=== PATIENT | male | born 1955 | race Two or more races ===

== ENCOUNTER 2020-03-13 12:16 | Inpatient (IN) | payer OTHER ==
[~2020-03-13] VITALS: Ht 170.2 cm; Wt 63.7 kg
[2020-03-13] MEDS: BUDESONIDE (INHALATION) 180 MCG IH IN SCH (08:00)
[2020-03-13 16:35] LABS: Basophils # (auto) 0 10 ^3/uL (0-0.2); Basophils % (auto) 0.1 % (0.0-2.0); Eosinophils # (auto) 0 10 ^3/uL (0-0.8); Hematocrit 52.8 % (41.0-53.0); Hemoglobin 18.2 g/dL (13.5-17.5); Lymphocytes # (auto) 0.2 10 ^3/uL (0.4-5.4); Lymphocytes % (auto) 1.7 % (10.0-50.0); Mean Corpuscular Hemoglobin 31.3 pg (28.0-32.0); Mean Corpuscular Hgb Conc. 34.4 g/dL (32.0-36.0); Monocytes # (auto) 0.5 10 ^3/uL (0-1.3); Monocytes % (auto) 3.9 % (0.0-12.0); Neutrophils # (auto) 11.1 10 ^3/uL (1.6-8.6); Neutrophils % (auto) 94.3 % (37.0-80.0); Nucleated Red Blood Cells % 0.1 %; Platelet Count (auto) 250 10^3/uL (140-450); Red Cell Distribution Width 13.2 % (11.8-14.3); White Blood Cell 11.7 10^3/uL (4.4-10.8)
[2020-03-13 16:52] LABS: Albumin 3.2 g/dL (3.4-5.0); Anion Gap 2 (5-15); Blood Urea Nitrogen 19 mg/dL (7-18); Calcium 8.9 mg/dL (8.5-10.1); Carbon Dioxide 31 mmol/L (21-32); Chloride 103 mmol/L (98-107); Glucose 138 mg/dL (74-106); Potassium 5.1 mmol/L (3.5-5.1); Sodium 136 mmol/L (136-145)
[2020-03-13 17:02] LABS: Alanine Aminotransferase 48 U/L (16-61); Alkaline Phosphatase 88 U/L (45-117); Aspartate Aminotransferase 42 U/L (15-37); BUN/Creatinine Ratio 20.4; Bilirubin, Total 0.9 mg/dL (0.2-1.0); GFR African American 105 mL/min; GFR Non-African American 87 mL/min; Lactate Dehydrogenase 446 U/L (87-241); Total Protein 7.9 g/dL (6.4-8.2)
[2020-03-13] MEDS ORDERED: REMDESIVIR PER PHARMACY 0 ML IV SCH (17:15)
[2020-03-13] MEDS ORDERED: ACETAMINOPHEN 500 MG TAB PO PRN (17:15)
[2020-03-13] MEDS ORDERED: MORPHINE SULF INJ 2 MG/ML SYRINGE 1ML IV PRN (17:30)
[2020-03-13] MEDS ORDERED: diphenhdrAMINE HCL 50 MG/1 ML VL IV PRN (17:30)
[2020-03-13] MEDS ORDERED: NITROGLYCERIN 0.4 MG SL TAB SL PRN (17:30)
[2020-03-13] MEDS ORDERED: LACTULOSE 20Gm/30ML SOLN PO PRN (17:30)
[2020-03-13] MEDS ORDERED: PROMETHAZINE HCL 25 MG/ML 1ML IV PRN (17:30)
[2020-03-13] MEDS ORDERED: traMADol HCL 50 MG TAB PO PRN (17:30)
[2020-03-14 06:26] LABS: Basophils # (auto) 0 10 ^3/uL (0-0.2); Basophils % (auto) 0.1 % (0.0-2.0); Eosinophils # (auto) 0 10 ^3/uL (0-0.8); Hemoglobin 16.4 g/dL (13.5-17.5); Lymphocytes # (auto) 0.4 10 ^3/uL (0.4-5.4); Lymphocytes % (auto) 2.6 % (10.0-50.0); Mean Corpuscular Hemoglobin 31.2 pg (28.0-32.0); Mean Corpuscular Hgb Conc. 34.8 g/dL (32.0-36.0); Mean Corpuscular Volume 89.7 fL (80.0-100.0); Monocytes % (auto) 7.7 % (0.0-12.0); Neutrophils # (auto) 11.9 10 ^3/uL (1.6-8.6); Neutrophils % (auto) 89.6 % (37.0-80.0); Nucleated Red Blood Cells % 0.3 %; Platelet Count (auto) 241 10^3/uL (140-450); Red Blood Cells 5.24 10^6/uL (4.5-5.90); Red Cell Distribution Width 13.2 % (11.8-14.3); White Blood Cell 13.3 10^3/uL (4.4-10.8)
[2020-03-14 06:58] LABS: Albumin 2.8 g/dL (3.4-5.0); Potassium 4.1 mmol/L (3.5-5.1)
[2020-03-14 07:02] LABS: Bilirubin, Total 0.9 mg/dL (0.2-1.0); Total Protein 7.1 g/dL (6.4-8.2)
[2020-03-14] MEDS: FAMOTIDINE (10MG/ML) 2ML VL IV SCH ×3 (08:10→22:44)
[2020-03-14] MEDS: ENOXAPARIN SOD 40 MG/0.4 ML SYRINGE SC SCH ×3 (08:11→22:44)
[2020-03-14] MEDS: DexAMETHasone SOD PHOS 10MG/1ML VIAL INJ IV SCH (10:00)
[2020-03-14] MEDS: BUDESONIDE (INHALATION) 180 MCG IH IN SCH ×2 (10:00→22:00)
[2020-03-14] MEDS ORDERED: levoFLOXacin 500MG 100 ML IV SCH (10:00)
[2020-03-14] MEDS ORDERED: cefTRIAXone 1GM/50ML D5W 50 ML IV SCH (10:24)
[2020-03-14] MEDS ORDERED: FUROSEMIDE 20 MG/2 ML VIAL IV ONE (10:30)
[2020-03-14] MEDS ORDERED: CEFTRIAXONE SODIUM 2 GM in D5W 5% 50 ML IV ONE (10:30)
[2020-03-14] MEDS ORDERED: REMDESIVIR PER PHARMACY 0 ML IV SCH (10:30)
[2020-03-14] MEDS ORDERED: diphenhdrAMINE HCL 50 MG/1 ML VL IV PRN (10:30)
[2020-03-14 11:10] VITALS: BP 136/96
[2020-03-14] MEDS: ASCORBIC ACID 1,000 MG TAB PO SCH (13:45)
[2020-03-14] MEDS: ZINC SULFATE 220mg CAP or TAB PO SCH (13:45)
[2020-03-14] MEDS: CHOLECALCIFEROL (VITD3) 2,000 UNIT CAP/TAB PO SCH (13:45)
[2020-03-14] MEDS ORDERED: REMDESIVIR 200 MG in NS 210ml LOADING DOSE ADULT IV ONE (15:00)
[2020-03-14] MEDS ORDERED: ALPRAZolam 0.5 MG TAB PO PRN (19:45)
[2020-03-14 21:10] VITALS: BP 144/73
[2020-03-14 22:10] VITALS: BP 144/73
[2020-03-14] MEDS: ALBUTEROL SULF HFA 90MCG INH 200DOSE IN PRN (22:36)
[2020-03-14 23:31] LABS: Urine Bacteria NONE SEEN /hpf (None Seen); Urine Blood Negative /uL (Negative); Urine Hyaline Cast FEW /lpf (0 - 2); Urine Mucus FEW (None Seen); Urine Specific Gravity 1.036 (1.001-1.035); Urine WBC 1 /hpf (0 - 3)
[2020-03-15] VITALS (8 sets, daily range): BP systolic 108–132; BP diastolic 56–81
[2020-03-15] MEDS: BUDESONIDE (INHALATION) 180 MCG IH IN SCH ×2 (07:21→21:25)
[2020-03-15] MEDS: ALBUTEROL SULF HFA 90MCG INH 200DOSE IN PRN ×2 (07:21→23:11)
[2020-03-15] MEDS: cefTRIAXone 1GM/50ML D5W 50 ML IV SCH (10:26)
[2020-03-15] MEDS: DexAMETHasone SOD PHOS 10MG/1ML VIAL INJ IV SCH (10:26)
[2020-03-15] MEDS: FUROSEMIDE 20 MG/2 ML VIAL IV SCH (10:27)
[2020-03-15] MEDS: FAMOTIDINE (10MG/ML) 2ML VL IV SCH ×2 (10:28→21:37)
[2020-03-15] MEDS: CHOLECALCIFEROL (VITD3) 2,000 UNIT CAP/TAB PO SCH (10:28)
[2020-03-15] MEDS: ASCORBIC ACID 1,000 MG TAB PO SCH (10:28)
[2020-03-15] MEDS: AZITHROMYCIN 500MG/ 250ML 250 ML IV SCH (10:28)
[2020-03-15] MEDS: ZINC SULFATE 220mg CAP or TAB PO SCH (10:28)
[2020-03-15] MEDS: ENOXAPARIN SOD 40 MG/0.4 ML SYRINGE SC SCH ×2 (10:29→21:37)
[2020-03-15] MEDS: REMDESIVIR 100 MG in SODIUM CHL 0.9% 250 ML IV SCH (15:00)
[2020-03-16 05:00] VITALS: BP 114/77
[2020-03-16 05:27] LABS: Basophils # (auto) 0 10 ^3/uL (0-0.2); Basophils % (auto) 0.1 % (0.0-2.0); Eosinophils # (auto) 0 10 ^3/uL (0-0.8); Hematocrit 46.8 % (41.0-53.0); Hemoglobin 16.3 g/dL (13.5-17.5); Lymphocytes # (auto) 0.4 10 ^3/uL (0.4-5.4); Lymphocytes % (auto) 3.6 % (10.0-50.0); Mean Corpuscular Hemoglobin 31.3 pg (28.0-32.0); Mean Corpuscular Hgb Conc. 34.9 g/dL (32.0-36.0); Mean Corpuscular Volume 89.6 fL (80.0-100.0); Monocytes # (auto) 0.8 10 ^3/uL (0-1.3); Monocytes % (auto) 6.7 % (0.0-12.0); Neutrophils # (auto) 10.1 10 ^3/uL (1.6-8.6); Neutrophils % (auto) 89.6 % (37.0-80.0); Nucleated Red Blood Cells % 0.2 %; Platelet Count (auto) 259 10^3/uL (140-450); Red Blood Cells 5.22 10^6/uL (4.5-5.90); Red Cell Distribution Width 13.2 % (11.8-14.3); White Blood Cell 11.2 10^3/uL (4.4-10.8)
[2020-03-16 05:43] LABS: Calcium 8.7 mg/dL (8.5-10.1)
[2020-03-16 05:52] LABS: BUN/Creatinine Ratio 31.3; CRP High Sensitivity 14.9 mg/dL (< 0.3)
[2020-03-16] MEDS: ALBUTEROL SULF HFA 90MCG INH 200DOSE IN PRN ×2 (06:07→19:10)
[2020-03-16] MEDS: BUDESONIDE (INHALATION) 180 MCG IH IN SCH ×2 (06:07→21:41)
[2020-03-16 08:00] VITALS: BP 107/74
[2020-03-16] MEDS: ENOXAPARIN SOD 40 MG/0.4 ML SYRINGE SC SCH ×2 (08:48→21:07)
[2020-03-16] MEDS: CHOLECALCIFEROL (VITD3) 2,000 UNIT CAP/TAB PO SCH (08:49)
[2020-03-16] MEDS: FUROSEMIDE 20 MG/2 ML VIAL IV SCH ×3 (08:49→10:00)
[2020-03-16] MEDS: DexAMETHasone SOD PHOS 10MG/1ML VIAL INJ IV SCH (08:49)
[2020-03-16] MEDS: ASCORBIC ACID 1,000 MG TAB PO SCH (08:50)
[2020-03-16] MEDS: ZINC SULFATE 220mg CAP or TAB PO SCH (08:50)
[2020-03-16] MEDS: FAMOTIDINE (10MG/ML) 2ML VL IV SCH ×2 (08:50→21:07)
[2020-03-16] MEDS: cefTRIAXone 1GM/50ML D5W 50 ML IV SCH (08:51)
[2020-03-16] MEDS: AZITHROMYCIN 500MG/ 250ML 250 ML IV SCH (08:51)
[2020-03-16 09:00] VITALS: BP 107/74
[2020-03-16 13:00] VITALS: BP 117/71
[2020-03-16] MEDS: LORazepam 2MG/ML-1ML VIAL IV PRN ×2 (14:45→21:20)
[2020-03-16] MEDS: REMDESIVIR 100 MG in SODIUM CHL 0.9% 250 ML IV SCH (15:00)
[2020-03-16 17:00] VITALS: BP 119/85
[2020-03-16 22:00] VITALS: BP 124/88
[2020-03-17 05:00] VITALS: BP 117/78
[2020-03-17] MEDS: BUDESONIDE (INHALATION) 180 MCG IH IN SCH ×2 (06:55→19:53)
[2020-03-17] MEDS: ALBUTEROL SULF HFA 90MCG INH 200DOSE IN PRN ×2 (06:55→19:53)
[2020-03-17] MEDS: cefTRIAXone 1GM/50ML D5W 50 ML IV SCH (08:56)
[2020-03-17] MEDS: ASCORBIC ACID 1,000 MG TAB PO SCH (08:57)
[2020-03-17] MEDS: FAMOTIDINE (10MG/ML) 2ML VL IV SCH ×2 (08:59→21:36)
[2020-03-17] MEDS: FUROSEMIDE 20 MG/2 ML VIAL IV SCH (08:59)
[2020-03-17 09:00] VITALS: BP 119/81
[2020-03-17] MEDS: ENOXAPARIN SOD 40 MG/0.4 ML SYRINGE SC SCH ×2 (09:00→21:36)
[2020-03-17] MEDS: CHOLECALCIFEROL (VITD3) 2,000 UNIT CAP/TAB PO SCH (09:10)
[2020-03-17] MEDS: DexAMETHasone SOD PHOS 10MG/1ML VIAL INJ IV SCH (09:10)
[2020-03-17] MEDS: ZINC SULFATE 220mg CAP or TAB PO SCH (09:10)
[2020-03-17] MEDS: AZITHROMYCIN 500MG/ 250ML 250 ML IV SCH (11:00)
[2020-03-17 13:00] VITALS: BP 111/65
[2020-03-17 17:00] VITALS: BP 117/78
[2020-03-17] MEDS: REMDESIVIR 100 MG in SODIUM CHL 0.9% 250 ML IV SCH (18:00)
[2020-03-17 21:00] VITALS: BP 133/82
[2020-03-18 05:04] VITALS: BP 100/66
[2020-03-18] MEDS: BUDESONIDE (INHALATION) 180 MCG IH IN SCH ×2 (06:47→20:55)
[2020-03-18] MEDS: ALBUTEROL SULF HFA 90MCG INH 200DOSE IN PRN ×2 (06:47→20:55)
[2020-03-18 08:00] VITALS: BP 111/70
[2020-03-18 09:00] VITALS: BP 111/70
[2020-03-18] MEDS: DexAMETHasone SOD PHOS 10MG/1ML VIAL INJ IV SCH (12:39)
[2020-03-18] MEDS: cefTRIAXone 1GM/50ML D5W 50 ML IV SCH (12:39)
[2020-03-18] MEDS: FUROSEMIDE 20 MG/2 ML VIAL IV SCH (12:39)
[2020-03-18] MEDS: FAMOTIDINE (10MG/ML) 2ML VL IV SCH ×2 (12:39→21:44)
[2020-03-18] MEDS: AZITHROMYCIN 500MG/ 250ML 250 ML IV SCH (12:39)
[2020-03-18] MEDS: ZINC SULFATE 220mg CAP or TAB PO SCH (12:39)
[2020-03-18] MEDS: CHOLECALCIFEROL (VITD3) 2,000 UNIT CAP/TAB PO SCH (12:40)
[2020-03-18] MEDS: ASCORBIC ACID 1,000 MG TAB PO SCH (12:40)
[2020-03-18] MEDS: ENOXAPARIN SOD 40 MG/0.4 ML SYRINGE SC SCH ×2 (12:40→21:44)
[2020-03-18 13:00] VITALS: BP 118/76
[2020-03-18] MEDS: REMDESIVIR 100 MG in SODIUM CHL 0.9% 250 ML IV SCH (15:43)
[2020-03-18] MEDS: LORazepam 2MG/ML-1ML VIAL IV PRN (21:45)
[2020-03-18 22:00] VITALS: BP 116/73
[2020-03-19] MEDS: LORazepam 2MG/ML-1ML VIAL IV PRN (02:37)
[2020-03-19 05:00] VITALS: BP 123/74
[2020-03-19 08:00] VITALS: BP 109/78
[2020-03-19 08:26] VITALS: BP 109/78
[2020-03-19] MEDS: ALBUTEROL SULF HFA 90MCG INH 200DOSE IN PRN (08:57)
[2020-03-19] MEDS: BUDESONIDE (INHALATION) 180 MCG IH IN SCH (08:57)
[2020-03-19] MEDS: ASCORBIC ACID 1,000 MG TAB PO SCH (10:00)
[2020-03-19] MEDS: CHOLECALCIFEROL (VITD3) 2,000 UNIT CAP/TAB PO SCH (10:00)
[2020-03-19] MEDS: ZINC SULFATE 220mg CAP or TAB PO SCH (10:00)
[2020-03-19] MEDS: FAMOTIDINE (10MG/ML) 2ML VL IV SCH ×2 (10:33→21:30)
[2020-03-19] MEDS: DexAMETHasone SOD PHOS 10MG/1ML VIAL INJ IV SCH (10:33)
[2020-03-19] MEDS: FUROSEMIDE 20 MG/2 ML VIAL IV SCH (10:33)
[2020-03-19] MEDS: cefTRIAXone 1GM/50ML D5W 50 ML IV SCH (10:33)
[2020-03-19] MEDS: ENOXAPARIN SOD 40 MG/0.4 ML SYRINGE SC SCH ×2 (10:34→21:30)
[2020-03-19] MEDS: AZITHROMYCIN 500MG/ 250ML 250 ML IV SCH (10:34)
[2020-03-19 12:30] VITALS: BP 105/78
[2020-03-19 17:00] VITALS: BP 104/77
[2020-03-19 22:00] VITALS: BP 112/80
[2020-03-20] MEDS: ALBUTEROL SULF HFA 90MCG INH 200DOSE IN PRN ×3 (00:21→19:38)
[2020-03-20] MEDS: BUDESONIDE (INHALATION) 180 MCG IH IN SCH ×3 (00:21→19:38)
[2020-03-20 04:48] VITALS: BP 115/66
[2020-03-20 09:00] VITALS: BP 119/82
[2020-03-20] MEDS: cefTRIAXone 1GM/50ML D5W 50 ML IV SCH (10:32)
[2020-03-20] MEDS: DexAMETHasone SOD PHOS 10MG/1ML VIAL INJ IV SCH (10:33)
[2020-03-20] MEDS: FUROSEMIDE 20 MG/2 ML VIAL IV SCH (10:33)
[2020-03-20] MEDS: AZITHROMYCIN 500MG/ 250ML 250 ML IV SCH (10:33)
[2020-03-20] MEDS: FAMOTIDINE (10MG/ML) 2ML VL IV SCH ×2 (10:33→21:26)
[2020-03-20] MEDS: ZINC SULFATE 220mg CAP or TAB PO SCH (10:33)
[2020-03-20] MEDS: ENOXAPARIN SOD 40 MG/0.4 ML SYRINGE SC SCH ×2 (10:34→21:26)
[2020-03-20] MEDS: CHOLECALCIFEROL (VITD3) 2,000 UNIT CAP/TAB PO SCH (10:34)
[2020-03-20] MEDS: ASCORBIC ACID 1,000 MG TAB PO SCH (10:34)
[2020-03-20 11:21] LABS: Basophils # (auto) 0.1 10 ^3/uL (0-0.2); Basophils % (auto) 0.4 % (0.0-2.0); Eosinophils # (auto) 0 10 ^3/uL (0-0.8); Eosinophils % (auto) 0.1 % (0.0-7.0); Hematocrit 50.9 % (41.0-53.0); Hemoglobin 17.4 g/dL (13.5-17.5); Lymphocytes # (auto) 0.3 10 ^3/uL (0.4-5.4); Lymphocytes % (auto) 1.9 % (10.0-50.0); Mean Corpuscular Hemoglobin 30.7 pg (28.0-32.0); Mean Corpuscular Hgb Conc. 34.2 g/dL (32.0-36.0); Mean Corpuscular Volume 89.8 fL (80.0-100.0); Monocytes # (auto) 0.6 10 ^3/uL (0-1.3); Monocytes % (auto) 4.2 % (0.0-12.0); Neutrophils # (auto) 13.8 10 ^3/uL (1.6-8.6); Neutrophils % (auto) 93.4 % (37.0-80.0); Nucleated Red Blood Cells % 0.2 %; Platelet Count (auto) 357 10^3/uL (140-450); Red Blood Cells 5.67 10^6/uL (4.5-5.90); White Blood Cell 14.8 10^3/uL (4.4-10.8)
[2020-03-20 13:00] VITALS: BP 110/77
[2020-03-20 13:00] LABS: Albumin 2.3 g/dL (3.4-5.0); Calcium 8.4 mg/dL (8.5-10.1); Potassium 4.1 mmol/L (3.5-5.1)
[2020-03-20 13:04] LABS: BUN/Creatinine Ratio 30.6; Bilirubin, Total 0.6 mg/dL (0.2-1.0)
[2020-03-20 17:00] VITALS: BP 101/74
[2020-03-20] MEDS: LORazepam 2MG/ML-1ML VIAL IV PRN (17:17)
[2020-03-21 05:00] VITALS: BP 129/79
[2020-03-21] MEDS: BUDESONIDE (INHALATION) 180 MCG IH IN SCH ×2 (06:54→20:06)
[2020-03-21 09:00] VITALS: BP 120/78
[2020-03-21] MEDS: FAMOTIDINE (10MG/ML) 2ML VL IV SCH ×2 (09:01→21:21)
[2020-03-21] MEDS: FUROSEMIDE 20 MG/2 ML VIAL IV SCH (09:02)
[2020-03-21] MEDS: ZINC SULFATE 220mg CAP or TAB PO SCH (09:02)
[2020-03-21] MEDS: DexAMETHasone SOD PHOS 10MG/1ML VIAL INJ IV SCH (09:02)
[2020-03-21] MEDS: ASCORBIC ACID 1,000 MG TAB PO SCH (09:03)
[2020-03-21] MEDS: ENOXAPARIN SOD 40 MG/0.4 ML SYRINGE SC SCH ×2 (09:03→21:21)
[2020-03-21] MEDS: cefTRIAXone 1GM/50ML D5W 50 ML IV SCH (09:04)
[2020-03-21] MEDS: CHOLECALCIFEROL (VITD3) 2,000 UNIT CAP/TAB PO SCH (09:04)
[2020-03-21] MEDS: AZITHROMYCIN 500MG/ 250ML 250 ML IV SCH (10:52)
[2020-03-21 13:00] VITALS: BP 108/84
[2020-03-21 17:00] VITALS: BP 113/76
[2020-03-21 20:00] VITALS: BP 101/76
[2020-03-21] MEDS: ALBUTEROL SULF HFA 90MCG INH 200DOSE IN PRN (20:08)
[2020-03-21 21:24] VITALS: BP 101/76
[2020-03-22] VITALS (7 sets, daily range): BP systolic 105–115; BP diastolic 71–83
[2020-03-22] MEDS: BUDESONIDE (INHALATION) 180 MCG IH IN SCH (10:00)
[2020-03-22] MEDS: ASCORBIC ACID 1,000 MG TAB PO SCH (10:00)
[2020-03-22] MEDS: CHOLECALCIFEROL (VITD3) 2,000 UNIT CAP/TAB PO SCH (10:00)
[2020-03-22] MEDS: ZINC SULFATE 220mg CAP or TAB PO SCH (10:00)
[2020-03-22] MEDS: DexAMETHasone SOD PHOS 10MG/1ML VIAL INJ IV SCH (10:52)
[2020-03-22] MEDS: FAMOTIDINE (10MG/ML) 2ML VL IV SCH ×2 (10:52→21:26)
[2020-03-22] MEDS: AZITHROMYCIN 500MG/ 250ML 250 ML IV SCH (10:52)
[2020-03-22] MEDS: cefTRIAXone 1GM/50ML D5W 50 ML IV SCH (10:52)
[2020-03-22] MEDS: FUROSEMIDE 20 MG/2 ML VIAL IV SCH (10:52)
[2020-03-22] MEDS: ENOXAPARIN SOD 40 MG/0.4 ML SYRINGE SC SCH ×2 (10:55→21:26)
[2020-03-22] MEDS ORDERED: FUROSEMIDE 20 MG/2 ML VIAL IV ONE (12:15)
[2020-03-22] MEDS: LORazepam 2MG/ML-1ML VIAL IV PRN (12:18)
[2020-03-22] MEDS: ALBUTEROL SULF HFA 90MCG INH 200DOSE IN PRN (16:22)
[2020-03-22] MEDS: TEMAZEPAM 15 MG CAP PO PRN (21:59)
[2020-03-23 05:51] VITALS: BP 104/61
[2020-03-23] MEDS: BUDESONIDE (INHALATION) 180 MCG IH IN SCH ×2 (06:26→10:00)
[2020-03-23] MEDS: ALBUTEROL SULF HFA 90MCG INH 200DOSE IN PRN ×2 (06:26→20:08)
[2020-03-23 08:35] VITALS: BP 101/78
[2020-03-23] MEDS: BUDESONIDE (INHALATION) 0.5 MG/2 ML NEB NEB SCH ×3 (09:54→22:00)
[2020-03-23] MEDS: ASCORBIC ACID 1,000 MG TAB PO SCH (10:00)
[2020-03-23] MEDS: ZINC SULFATE 220mg CAP or TAB PO SCH (10:00)
[2020-03-23] MEDS: CHOLECALCIFEROL (VITD3) 2,000 UNIT CAP/TAB PO SCH (10:00)
[2020-03-23] MEDS: cefTRIAXone 1GM/50ML D5W 50 ML IV SCH (10:16)
[2020-03-23] MEDS: DexAMETHasone SOD PHOS 10MG/1ML VIAL INJ IV SCH (10:17)
[2020-03-23] MEDS: FAMOTIDINE (10MG/ML) 2ML VL IV SCH ×2 (10:17→21:50)
[2020-03-23] MEDS: AZITHROMYCIN 500MG/ 250ML 250 ML IV SCH (10:17)
[2020-03-23] MEDS: FUROSEMIDE 20 MG/2 ML VIAL IV SCH (10:17)
[2020-03-23] MEDS: ENOXAPARIN SOD 40 MG/0.4 ML SYRINGE SC SCH ×2 (10:18→21:51)
[2020-03-23 12:41] VITALS: BP 105/72
[2020-03-23 14:34] LABS: Basophils # (auto) 0 10 ^3/uL (0-0.2); Eosinophils # (auto) 0 10 ^3/uL (0-0.8); Lymphocytes # (auto) 0.3 10 ^3/uL (0.4-5.4); Neutrophils % (auto) 95.9 % (37.0-80.0)
[2020-03-23 14:35] LABS: Eosinophils % (auto) 0.1 % (0.0-7.0); Hematocrit 51.4 % (41.0-53.0); Lymphocytes % (auto) 1.8 % (10.0-50.0); Mean Corpuscular Hemoglobin 31.2 pg (28.0-32.0); Mean Corpuscular Hgb Conc. 35.1 g/dL (32.0-36.0); Mean Corpuscular Volume 89.1 fL (80.0-100.0); Monocytes # (auto) 0.4 10 ^3/uL (0-1.3); Monocytes % (auto) 2.2 % (0.0-12.0); Neutrophils # (auto) 16.1 10 ^3/uL (1.6-8.6); Nucleated Red Blood Cells % 0.8 %; Platelet Count (auto) 343 10^3/uL (140-450); Red Blood Cells 5.77 10^6/uL (4.5-5.90); Red Cell Distribution Width 12.7 % (11.8-14.3); White Blood Cell 16.8 10^3/uL (4.4-10.8)
[2020-03-23 14:55] LABS: Alanine Aminotransferase 111 U/L (16-61); Albumin 2.3 g/dL (3.4-5.0); Anion Gap 5 (5-15); Aspartate Aminotransferase 74 U/L (15-37); BUN/Creatinine Ratio 30.4; Blood Urea Nitrogen 28 mg/dL (7-18); Calcium 8.6 mg/dL (8.5-10.1); Carbon Dioxide 33 mmol/L (21-32); Chloride 96 mmol/L (98-107); GFR African American 107 mL/min; GFR Non-African American 88 mL/min; Glucose 124 mg/dL (74-106); Potassium 4.3 mmol/L (3.5-5.1); Sodium 134 mmol/L (136-145)
[2020-03-23 14:58] LABS: Alkaline Phosphatase 111 U/L (45-117); Bilirubin, Total 0.6 mg/dL (0.2-1.0); Total Protein 7.2 g/dL (6.4-8.2)
[2020-03-23 16:54] VITALS: BP 115/85
[2020-03-23] MEDS: LORazepam 2MG/ML-1ML VIAL IV PRN (21:51)
[2020-03-23 22:00] VITALS: BP 112/71
[2020-03-24] MEDS: LORazepam 2MG/ML-1ML VIAL IV PRN (01:45)
[2020-03-24 05:00] VITALS: BP 112/75
[2020-03-24] MEDS: FAMOTIDINE (10MG/ML) 2ML VL IV SCH ×2 (09:16→21:38)
[2020-03-24] MEDS: DexAMETHasone SOD PHOS 10MG/1ML VIAL INJ IV SCH (09:16)
[2020-03-24] MEDS: cefTRIAXone 1GM/50ML D5W 50 ML IV SCH (09:16)
[2020-03-24] MEDS: AZITHROMYCIN 500MG/ 250ML 250 ML IV SCH (09:16)
[2020-03-24] MEDS: ENOXAPARIN SOD 40 MG/0.4 ML SYRINGE SC SCH ×2 (09:17→21:38)
[2020-03-24] MEDS: ASCORBIC ACID 1,000 MG TAB PO SCH (10:00)
[2020-03-24] MEDS: CHOLECALCIFEROL (VITD3) 2,000 UNIT CAP/TAB PO SCH (10:00)
[2020-03-24] MEDS: BUDESONIDE (INHALATION) 0.5 MG/2 ML NEB NEB SCH ×2 (10:00→18:40)
[2020-03-24] MEDS: ZINC SULFATE 220mg CAP or TAB PO SCH (10:00)
[2020-03-24] MEDS: FUROSEMIDE 20 MG/2 ML VIAL IV SCH (10:30)
[2020-03-24 13:00] VITALS: BP 114/91
[2020-03-24] MEDS: ALBUTEROL SULF HFA 90MCG INH 200DOSE IN PRN ×2 (14:58→15:20)
[2020-03-24 17:00] VITALS: BP 114/76
[2020-03-24] MEDS: TEMAZEPAM 15 MG CAP PO PRN (21:38)
[2020-03-24 22:00] VITALS: BP 106/72
[2020-03-25] MEDS: ALBUTEROL SULF HFA 90MCG INH 200DOSE IN PRN (02:35)
[2020-03-25 05:00] VITALS: BP 106/75
[2020-03-25] MEDS: BUDESONIDE (INHALATION) 0.5 MG/2 ML NEB NEB SCH ×2 (10:00→19:20)
[2020-03-25] MEDS: ZINC SULFATE 220mg CAP or TAB PO SCH (10:00)
[2020-03-25] MEDS: CHOLECALCIFEROL (VITD3) 2,000 UNIT CAP/TAB PO SCH (10:00)
[2020-03-25] MEDS: ASCORBIC ACID 1,000 MG TAB PO SCH (10:00)
[2020-03-25] MEDS: FAMOTIDINE (10MG/ML) 2ML VL IV SCH ×2 (12:16→22:33)
[2020-03-25] MEDS: cefTRIAXone 1GM/50ML D5W 50 ML IV SCH (12:17)
[2020-03-25] MEDS: AZITHROMYCIN 500MG/ 250ML 250 ML IV SCH (12:17)
[2020-03-25] MEDS: FUROSEMIDE 20 MG/2 ML VIAL IV SCH (12:17)
[2020-03-25] MEDS: DexAMETHasone SOD PHOS 10MG/1ML VIAL INJ IV SCH (12:17)
[2020-03-25 13:32] VITALS: BP 101/77
[2020-03-25] MEDS ORDERED: TPN PER PHARMACY 0 ML IV SCH (15:00)
[2020-03-25] MEDS: LORazepam 2MG/ML-1ML VIAL IV PRN (15:15)
[2020-03-25] MEDS ORDERED: SUCCINYLCHOLINE CHLORIDE 20 MG/ML 10ML VIAL IV ONE (15:18)
[2020-03-25] MEDS ORDERED: ROCURONIUM 10MG/ML 10ML VIAL IV ONE (15:19)
[2020-03-25] MEDS ORDERED: ETOMIDATE (2MG/ML) 20ML VIAL IV ONE (15:19)
[2020-03-25 16:58] VITALS: BP 115/77
[2020-03-25 17:14] LABS: Albumin 2.2 g/dL (3.4-5.0); Calcium 8.3 mg/dL (8.5-10.1); Magnesium 2.5 mg/dL (1.6-2.6)
[2020-03-25 17:20] LABS: BUN/Creatinine Ratio 26.4; Bilirubin, Total 0.8 mg/dL (0.2-1.0); Pre Albumin 15.2 mg/dL (20.0-40.0)
[2020-03-25] MEDS ORDERED: DEXTROSE (50%) 50ML SYRG IV SCH (18:00)
[2020-03-25] MEDS: InsuLIN REG 1unit/0.01ml Soln (100units/ml) SC SCH (18:00)
[2020-03-25 18:26] LABS: INR 1.21 (0.9-1.15)
[2020-03-25] MEDS: ACCU-CHEK COMFORT CURVE STRIP VI SCH (18:40)
[2020-03-25] MEDS ORDERED: AMINO ACID INFUSION IN D10W 1,000 ML IV NR (20:00)
[2020-03-25 22:00] VITALS: BP 102/76
[2020-03-26] MEDS: ACCU-CHEK COMFORT CURVE STRIP VI SCH ×4 (00:03→18:03)
[2020-03-26 05:00] VITALS: BP 102/77
[2020-03-26] MEDS: InsuLIN REG 1unit/0.01ml Soln (100units/ml) SC SCH ×4 (05:56→18:00)
[2020-03-26 07:34] LABS: Albumin 2.1 g/dL (3.4-5.0); Calcium 8.7 mg/dL (8.5-10.1); Magnesium 2.6 mg/dL (1.6-2.6)
[2020-03-26 07:37] LABS: BUN/Creatinine Ratio 32.5; Bilirubin, Total 0.8 mg/dL (0.2-1.0); Phosphorus 3.2 mg/dL (2.5-4.90); Total Protein 6.8 g/dL (6.4-8.2)
[2020-03-26] MEDS: cefTRIAXone 1GM/50ML D5W 50 ML IV SCH (08:52)
[2020-03-26 09:00] VITALS: BP 109/78
[2020-03-26] MEDS: BUDESONIDE (INHALATION) 0.5 MG/2 ML NEB NEB SCH ×2 (10:00→19:47)
[2020-03-26] MEDS: ZINC SULFATE 220mg CAP or TAB PO SCH (10:13)
[2020-03-26] MEDS: ASCORBIC ACID 1,000 MG TAB PO SCH (10:13)
[2020-03-26] MEDS: CHOLECALCIFEROL (VITD3) 2,000 UNIT CAP/TAB PO SCH (10:14)
[2020-03-26] MEDS: DexAMETHasone SOD PHOS 10MG/1ML VIAL INJ IV SCH (10:24)
[2020-03-26] MEDS: FAMOTIDINE (10MG/ML) 2ML VL IV SCH ×2 (10:39→22:37)
[2020-03-26] MEDS: AZITHROMYCIN 500MG/ 250ML 250 ML IV SCH (10:40)
[2020-03-26] MEDS: FUROSEMIDE 20 MG/2 ML VIAL IV SCH (10:41)
[2020-03-26 13:00] VITALS: BP 105/74
[2020-03-26] MEDS ORDERED: LIDOCAINE 1% (LOCAL ANESTH.) PF 5ml SDV ID ONE (14:00)
[2020-03-26 16:34] VITALS: BP 106/74
[2020-03-26 19:47] VITALS: BP 106/74
[2020-03-26] MEDS: ALBUTEROL SULF HFA 90MCG INH 200DOSE IN PRN (19:47)
[2020-03-26] MEDS ORDERED: TPN PER PHARMACY IV NR ×8 (20:00)
[2020-03-26] MEDS ORDERED: PPN PER PHARMACY IV NR ×9 (20:00)
[2020-03-26 22:00] VITALS: BP 121/88
[2020-03-26] MEDS: SODIUM CHLOR 0.9% PF (SALINE LOCK) 10ML VIAL/SYR IV SCH (22:00)
[2020-03-26] MEDS: LORazepam 2MG/ML-1ML VIAL IV PRN (22:36)
[2020-03-26] MEDS: ENOXAPARIN SOD 60 MG/0.6 ML SYRINGE SC SCH (22:37)
[2020-03-27] MEDS: ACCU-CHEK COMFORT CURVE STRIP VI SCH ×4 (05:59→17:32)
[2020-03-27] MEDS: InsuLIN REG 1unit/0.01ml Soln (100units/ml) SC SCH ×4 (06:00→17:31)
[2020-03-27 07:05] LABS: Albumin 2.2 g/dL (3.4-5.0); Calcium 8.9 mg/dL (8.5-10.1); Magnesium 2.4 mg/dL (1.6-2.6); Potassium 4.2 mmol/L (3.5-5.1)
[2020-03-27 07:08] LABS: BUN/Creatinine Ratio 30.1; Bilirubin, Total 0.8 mg/dL (0.2-1.0); Phosphorus 2.3 mg/dL (2.5-4.90); Total Protein 7.1 g/dL (6.4-8.2)
[2020-03-27] MEDS: cefTRIAXone 1GM/50ML D5W 50 ML IV SCH (08:39)
[2020-03-27 09:00] VITALS: BP 129/80
[2020-03-27] MEDS: SODIUM CHLOR 0.9% PF (SALINE LOCK) 10ML VIAL/SYR IV SCH ×2 (10:35→21:37)
[2020-03-27] MEDS: AZITHROMYCIN 500MG/ 250ML 250 ML IV SCH (10:35)
[2020-03-27] MEDS: FUROSEMIDE 20 MG/2 ML VIAL IV SCH (10:35)
[2020-03-27] MEDS: FAMOTIDINE (10MG/ML) 2ML VL IV SCH ×3 (10:35→22:06)
[2020-03-27] MEDS: ENOXAPARIN SOD 60 MG/0.6 ML SYRINGE SC SCH ×2 (10:36→21:38)
[2020-03-27] MEDS: ZINC SULFATE 220mg CAP or TAB PO SCH (10:36)
[2020-03-27] MEDS: CHOLECALCIFEROL (VITD3) 2,000 UNIT CAP/TAB PO SCH (10:36)
[2020-03-27] MEDS: ASCORBIC ACID 1,000 MG TAB PO SCH (10:36)
[2020-03-27] MEDS: BUDESONIDE (INHALATION) 0.5 MG/2 ML NEB NEB SCH ×2 (10:36→21:38)
[2020-03-27] MEDS: DexAMETHasone SOD PHOS 10MG/1ML VIAL INJ IV SCH (10:37)
[2020-03-27] MEDS ORDERED: SODIUM PHOSP 20MEQ(15MMOL) IN NS 100 ML IV ONE (10:45)
[2020-03-27 12:36] VITALS: BP 110/84
[2020-03-27] MEDS: LORazepam 2MG/ML-1ML VIAL IV PRN (14:57)
[2020-03-27 16:43] VITALS: BP 102/82
[2020-03-27] MEDS ORDERED: TPN PER PHARMACY IV NR ×8 (20:00)
[2020-03-27 20:43] VITALS: BP 112/86
[2020-03-28] MEDS: ACCU-CHEK COMFORT CURVE STRIP VI SCH ×4 (00:50→18:03)
[2020-03-28] MEDS: InsuLIN REG 1unit/0.01ml Soln (100units/ml) SC SCH ×4 (06:00→18:00)
[2020-03-28 06:35] LABS: Potassium 3.9 mmol/L (3.5-5.1)
[2020-03-28 07:29] LABS: Albumin 2.1 g/dL (3.4-5.0); BUN/Creatinine Ratio 34.8; Bilirubin, Total 0.8 mg/dL (0.2-1.0); Calcium 8.3 mg/dL (8.5-10.1); Magnesium 2.1 mg/dL (1.6-2.6); Phosphorus 2.8 mg/dL (2.5-4.90); Total Protein 6.7 g/dL (6.4-8.2)
[2020-03-28 08:00] VITALS: BP 121/74
[2020-03-28] MEDS: cefTRIAXone 1GM/50ML D5W 50 ML IV SCH (09:00)
[2020-03-28] MEDS: FUROSEMIDE 20 MG/2 ML VIAL IV SCH (10:00)
[2020-03-28] MEDS: SODIUM CHLOR 0.9% PF (SALINE LOCK) 10ML VIAL/SYR IV SCH ×2 (10:00→21:45)
[2020-03-28] MEDS: FAMOTIDINE (10MG/ML) 2ML VL IV SCH ×2 (10:00→21:45)
[2020-03-28] MEDS: ASCORBIC ACID 1,000 MG TAB PO SCH (10:00)
[2020-03-28] MEDS: BUDESONIDE (INHALATION) 0.5 MG/2 ML NEB NEB SCH ×2 (10:00→21:31)
[2020-03-28] MEDS: AZITHROMYCIN 500MG/ 250ML 250 ML IV SCH (10:00)
[2020-03-28] MEDS: DexAMETHasone SOD PHOS 10MG/1ML VIAL INJ IV SCH (10:00)
[2020-03-28] MEDS: ZINC SULFATE 220mg CAP or TAB PO SCH (10:00)
[2020-03-28] MEDS: CHOLECALCIFEROL (VITD3) 2,000 UNIT CAP/TAB PO SCH (10:00)
[2020-03-28] MEDS: ENOXAPARIN SOD 60 MG/0.6 ML SYRINGE SC SCH ×2 (10:00→21:46)
[2020-03-28 16:00] VITALS: BP 106/75
[2020-03-28] MEDS ORDERED: TPN PER PHARMACY IV NR ×9 (20:00)
[2020-03-28] MEDS: LORazepam 2MG/ML-1ML VIAL IV PRN (21:46)
[2020-03-28 22:00] VITALS: BP 132/87
[2020-03-29] MEDS ORDERED: SUCCINYLCHOLINE CHLORIDE 20 MG/ML 10ML VIAL IV ONE (01:36)
[2020-03-29] MEDS ORDERED: ETOMIDATE (2MG/ML) 20ML VIAL IV ONE (01:36)
[2020-03-29] MEDS ORDERED: PROPOFOL 100 ML IV ONE (01:39)
[2020-03-29] MEDS ORDERED: MIDAZOLAM DRIP 50 mg/50mL 50 ML IV ONE ×2 (01:41→01:44)
[2020-03-29] MEDS: LORazepam 2MG/ML-1ML VIAL IV PRN (01:46)
[2020-03-29] MEDS: InsuLIN REG 1unit/0.01ml Soln (100units/ml) SC SCH ×4 (06:00→18:00)
[2020-03-29] MEDS: ACCU-CHEK COMFORT CURVE STRIP VI SCH ×4 (06:00→18:00)
[2020-03-29 06:10] LABS: Potassium 3.9 mmol/L (3.5-5.1)
[2020-03-29 06:16] LABS: Albumin 2.2 g/dL (3.4-5.0); BUN/Creatinine Ratio 46.3; Calcium 8.8 mg/dL (8.5-10.1); Magnesium 2.3 mg/dL (1.6-2.6); Phosphorus 2.3 mg/dL (2.5-4.90); Total Protein 6.9 g/dL (6.4-8.2)
[2020-03-29 07:18] VITALS: BP 101/75
[2020-03-29 09:00] VITALS: BP 96/78
[2020-03-29] MEDS: ASCORBIC ACID 1,000 MG TAB PO SCH (10:00)
[2020-03-29] MEDS: ZINC SULFATE 220mg CAP or TAB PO SCH (10:00)
[2020-03-29] MEDS: BUDESONIDE (INHALATION) 0.5 MG/2 ML NEB NEB SCH ×2 (10:00→19:50)
[2020-03-29] MEDS: CHOLECALCIFEROL (VITD3) 2,000 UNIT CAP/TAB PO SCH (10:00)
[2020-03-29] MEDS: ENOXAPARIN SOD 60 MG/0.6 ML SYRINGE SC SCH ×2 (10:30→21:21)
[2020-03-29] MEDS: FAMOTIDINE (10MG/ML) 2ML VL IV SCH ×2 (10:30→21:20)
[2020-03-29] MEDS: DexAMETHasone SOD PHOS 10MG/1ML VIAL INJ IV SCH (10:30)
[2020-03-29] MEDS: cefTRIAXone 1GM/50ML D5W 50 ML IV SCH (10:30)
[2020-03-29] MEDS: FUROSEMIDE 20 MG/2 ML VIAL IV SCH (10:30)
[2020-03-29] MEDS: SODIUM CHLOR 0.9% PF (SALINE LOCK) 10ML VIAL/SYR IV SCH ×2 (10:30→21:20)
[2020-03-29] MEDS: AZITHROMYCIN 500MG/ 250ML 250 ML IV SCH (11:00)
[2020-03-29] MEDS ORDERED: SODIUM PHOSPHATES 20 MEQ in SODIUM CHL 0.9% 100 ML IV ONE (12:00)
[2020-03-29 15:41] VITALS: BP 97/60
[2020-03-29 18:50] VITALS: BP 122/82
[2020-03-29] MEDS ORDERED: TPN PER PHARMACY IV NR ×8 (20:00)
[2020-03-30] VITALS: BP 121/82
[2020-03-30] MEDS: InsuLIN REG 1unit/0.01ml Soln (100units/ml) SC SCH ×4 (01:13→18:40)
[2020-03-30] MEDS: LORazepam 2MG/ML-1ML VIAL IV PRN ×3 (02:25→12:32)
[2020-03-30] MEDS: ACCU-CHEK COMFORT CURVE STRIP VI SCH ×4 (06:00→18:39)
[2020-03-30 06:25] LABS: Basophils # (auto) 0.1 10 ^3/uL (0-0.2); Basophils % (auto) 0.3 % (0.0-2.0); Eosinophils # (auto) 0 10 ^3/uL (0-0.8); Eosinophils % (auto) 0.1 % (0.0-7.0); Hematocrit 45.9 % (41.0-53.0); Lymphocytes # (auto) 0.4 10 ^3/uL (0.4-5.4); Lymphocytes % (auto) 1.6 % (10.0-50.0); Mean Corpuscular Hemoglobin 31.4 pg (28.0-32.0); Mean Corpuscular Volume 89.9 fL (80.0-100.0); Monocytes # (auto) 1.2 10 ^3/uL (0-1.3); Monocytes % (auto) 5.3 % (0.0-12.0); Neutrophils # (auto) 20.2 10 ^3/uL (1.6-8.6); Neutrophils % (auto) 92.7 % (37.0-80.0); Nucleated Red Blood Cells % 0.1 %; Platelet Count (auto) 226 10^3/uL (140-450); Red Blood Cells 5.11 10^6/uL (4.5-5.90); Red Cell Distribution Width 12.7 % (11.8-14.3); White Blood Cell 21.8 10^3/uL (4.4-10.8)
[2020-03-30 06:44] LABS: Potassium 3.6 mmol/L (3.5-5.1)
[2020-03-30 06:57] LABS: Albumin 2.1 g/dL (3.4-5.0); BUN/Creatinine Ratio 26.8; Calcium 8.1 mg/dL (8.5-10.1); Magnesium 2.2 mg/dL (1.6-2.6)
[2020-03-30 06:59] LABS: Bilirubin, Total 1.5 mg/dL (0.2-1.0); Phosphorus 1.9 mg/dL (2.5-4.90); Total Protein 6.5 g/dL (6.4-8.2)
[2020-03-30 08:00] VITALS: BP 116/82
[2020-03-30] MEDS ORDERED: SODIUM PHOSPHATES 40 MEQ in D5W 5% 250 ML IV ONE (09:00)
[2020-03-30] MEDS ORDERED: MORPHINE SULF INJ 2 MG/ML SYRINGE 1ML IV PRN (09:30)
[2020-03-30] MEDS ORDERED: LORazepam 2MG/ML-1ML VIAL IV ONE (09:45)
[2020-03-30] MEDS: cefTRIAXone 1GM/50ML D5W 50 ML IV SCH (09:57)
[2020-03-30] MEDS: DexAMETHasone SOD PHOS 10MG/1ML VIAL INJ IV SCH (09:58)
[2020-03-30] MEDS: CHOLECALCIFEROL (VITD3) 2,000 UNIT CAP/TAB PO SCH (10:00)
[2020-03-30] MEDS: ZINC SULFATE 220mg CAP or TAB PO SCH (10:00)
[2020-03-30] MEDS: ENOXAPARIN SOD 60 MG/0.6 ML SYRINGE SC SCH ×2 (10:00→21:22)
[2020-03-30] MEDS: ASCORBIC ACID 1,000 MG TAB PO SCH (10:00)
[2020-03-30] MEDS: FAMOTIDINE (10MG/ML) 2ML VL IV SCH ×2 (10:00→21:21)
[2020-03-30] MEDS: FUROSEMIDE 20 MG/2 ML VIAL IV SCH (10:00)
[2020-03-30] MEDS: SODIUM CHLOR 0.9% PF (SALINE LOCK) 10ML VIAL/SYR IV SCH ×2 (10:30→21:21)
[2020-03-30] MEDS: AZITHROMYCIN 500MG/ 250ML 250 ML IV SCH (10:30)
[2020-03-30 16:00] VITALS: BP 103/67
[2020-03-30] MEDS ORDERED: TPN PER PHARMACY IV NR ×9 (20:00)
[2020-03-30] MEDS: BUDESONIDE (INHALATION) 0.5 MG/2 ML NEB NEB SCH (22:00)
[2020-03-30 23:47] VITALS: BP 123/77
[2020-03-31] VITALS (81 sets, daily range): BP systolic 73–123; BP diastolic 46–85
[2020-03-31] MEDS ORDERED: SUCCINYLCHOLINE CHLORIDE 20 MG/ML 10ML VIAL IV ONE (05:04)
[2020-03-31] MEDS ORDERED: ETOMIDATE (2MG/ML) 20ML VIAL IV ONE (05:04)
[2020-03-31] MEDS ORDERED: PROPOFOL 100 ML IV ONE (05:13)
[2020-03-31] MEDS: PROPOFOL 100 ML IV SCH ×3 (06:00→16:49)
[2020-03-31] MEDS: MIDAZOLAM DRIP 50 mg/50mL 50 ML IV SCH ×3 (06:00→15:32)
[2020-03-31] MEDS: InsuLIN REG 1unit/0.01ml Soln (100units/ml) SC SCH ×4 (06:00→17:38)
[2020-03-31] MEDS: ACCU-CHEK COMFORT CURVE STRIP VI SCH ×4 (06:00→17:37)
[2020-03-31] MEDS ORDERED: NOREPINEPHRINE 8 MG/250ML KIT 250 ML IV ONE (06:03)
[2020-03-31] MEDS ORDERED: fentaNYL Drip 2500mCg/250mlNS 250 ML IV ONE (06:11)
[2020-03-31] MEDS: NOREPINEPHRINE 8 MG/250ML KIT 250 ML IV SCH ×2 (06:15→14:43)
[2020-03-31] MEDS ORDERED: MIDAZOLAM DRIP 50 mg/50mL 50 ML IV ONE (06:16)
[2020-03-31] MEDS: BUDESONIDE (INHALATION) 0.5 MG/2 ML NEB NEB SCH ×2 (06:18→21:39)
[2020-03-31] MEDS: fentaNYL Drip 2500mCg/250mlNS 250 ML IV SCH ×2 (06:42→17:50)
[2020-03-31 07:11] LABS: Hematocrit 42.1 % (41.0-53.0); Hemoglobin 14.1 g/dL (13.5-17.5); Mean Corpuscular Hemoglobin 30.5 pg (28.0-32.0); Mean Corpuscular Hgb Conc. 33.4 g/dL (32.0-36.0); Mean Corpuscular Volume 91.4 fL (80.0-100.0); Platelet Count (auto) 216 10^3/uL (140-450); Red Blood Cells 4.61 10^6/uL (4.5-5.90); Red Cell Distribution Width 12.8 % (11.8-14.3); White Blood Cell 27.7 10^3/uL (4.4-10.8)
[2020-03-31 07:19] LABS: Basophils % (manual) 0 (0.0-2.0); Blast Cells 0; Eosinophils % (manual) 0 (0-7); Metamyelocytes % 0; Myelocytes % 0; Promyelocytes % 0; Reactive Lymphocytes 0
[2020-03-31 07:25] LABS: Potassium 3.8 mmol/L (3.5-5.1)
[2020-03-31] MEDS: ALBUTEROL SULF 2.5 MG/0.5ML(0.5%) NEB SOLN NEB PRN ×2 (07:33→21:39)
[2020-03-31 07:41] LABS: Albumin 1.9 g/dL (3.4-5.0); BUN/Creatinine Ratio 28.9; Bilirubin, Total 1.3 mg/dL (0.2-1.0); Calcium 8.1 mg/dL (8.5-10.1); Magnesium 2.4 mg/dL (1.6-2.6); Phosphorus 3.5 mg/dL (2.5-4.90); Total Protein 5.9 g/dL (6.4-8.2)
[2020-03-31 07:52] LABS: Band Neutrophils % (manual) 1; Lymphocytes % (manual) 5 (10.0-50.0); Monocytes % (manual) 4 (0-12)
[2020-03-31] MEDS: cefTRIAXone 1GM/50ML D5W 50 ML IV SCH (09:00)
[2020-03-31] MEDS: FUROSEMIDE 20 MG/2 ML VIAL IV SCH (09:54)
[2020-03-31] MEDS: DexAMETHasone SOD PHOS 10MG/1ML VIAL INJ IV SCH (09:54)
[2020-03-31] MEDS: ASCORBIC ACID 1,000 MG TAB PO SCH (09:55)
[2020-03-31] MEDS: FAMOTIDINE (10MG/ML) 2ML VL IV SCH ×2 (09:55→22:00)
[2020-03-31] MEDS: CHOLECALCIFEROL (VITD3) 2,000 UNIT CAP/TAB PO SCH (09:55)
[2020-03-31] MEDS: ZINC SULFATE 220mg CAP or TAB PO SCH (09:55)
[2020-03-31] MEDS: SODIUM CHLOR 0.9% PF (SALINE LOCK) 10ML VIAL/SYR IV SCH ×2 (09:56→22:00)
[2020-03-31] MEDS: ENOXAPARIN SOD 60 MG/0.6 ML SYRINGE SC SCH ×2 (09:56→22:00)
[2020-03-31] MEDS: AZITHROMYCIN 500MG/ 250ML 250 ML IV SCH (10:29)
[2020-03-31] MEDS ORDERED: AMINO ACID INFUSION IN D10W 1,000 ML IV NR (20:00)
[2020-03-31] MEDS ORDERED: TPN PER PHARMACY IV NR ×9 (20:00)
[2020-04-01] VITALS (99 sets, daily range): BP systolic 11–133; BP diastolic 56–92
[2020-04-01] MEDS: ACCU-CHEK COMFORT CURVE STRIP VI SCH ×4 (05:18→17:33)
[2020-04-01] MEDS: InsuLIN REG 1unit/0.01ml Soln (100units/ml) SC SCH ×4 (05:18→17:35)
[2020-04-01 05:49] LABS: Basophils # (auto) 0.1 10 ^3/uL (0-0.2); Basophils % (auto) 0.3 % (0.0-2.0); Eosinophils # (auto) 0.1 10 ^3/uL (0-0.8); Eosinophils % (auto) 0.4 % (0.0-7.0); Hematocrit 38.2 % (41.0-53.0); Hemoglobin 13.3 g/dL (13.5-17.5); Lymphocytes # (auto) 0.9 10 ^3/uL (0.4-5.4); Lymphocytes % (auto) 4.8 % (10.0-50.0); Mean Corpuscular Hemoglobin 31.3 pg (28.0-32.0); Mean Corpuscular Hgb Conc. 34.7 g/dL (32.0-36.0); Mean Corpuscular Volume 90.2 fL (80.0-100.0); Monocytes # (auto) 1.1 10 ^3/uL (0-1.3); Monocytes % (auto) 5.9 % (0.0-12.0); Neutrophils # (auto) 16.4 10 ^3/uL (1.6-8.6); Neutrophils % (auto) 88.6 % (37.0-80.0); Nucleated Red Blood Cells % 0.1 %; Platelet Count (auto) 200 10^3/uL (140-450); Red Blood Cells 4.24 10^6/uL (4.5-5.90); Red Cell Distribution Width 12.9 % (11.8-14.3); White Blood Cell 18.6 10^3/uL (4.4-10.8)
[2020-04-01 06:05] LABS: Potassium 4.2 mmol/L (3.5-5.1)
[2020-04-01 06:15] LABS: Albumin 1.8 g/dL (3.4-5.0); Bilirubin, Total 0.9 mg/dL (0.2-1.0); Calcium 8.1 mg/dL (8.5-10.1); Phosphorus 1.8 mg/dL (2.5-4.90); Total Protein 5.7 g/dL (6.4-8.2)
[2020-04-01 06:16] LABS: Pre Albumin 15.7 mg/dL (20.0-40.0)
[2020-04-01] MEDS: NOREPINEPHRINE 8 MG/250ML KIT 250 ML IV SCH ×2 (08:30→18:14)
[2020-04-01] MEDS: cefTRIAXone 1GM/50ML D5W 50 ML IV SCH (08:59)
[2020-04-01] MEDS: ZINC SULFATE 220mg CAP or TAB PO SCH (09:20)
[2020-04-01] MEDS: ENOXAPARIN SOD 60 MG/0.6 ML SYRINGE SC SCH ×2 (09:20→22:17)
[2020-04-01] MEDS: CHOLECALCIFEROL (VITD3) 2,000 UNIT CAP/TAB PO SCH (09:20)
[2020-04-01] MEDS: ASCORBIC ACID 1,000 MG TAB PO SCH (09:20)
[2020-04-01] MEDS: SODIUM CHLOR 0.9% PF (SALINE LOCK) 10ML VIAL/SYR IV SCH ×2 (09:21→22:17)
[2020-04-01] MEDS: FAMOTIDINE (10MG/ML) 2ML VL IV SCH ×2 (09:37→22:17)
[2020-04-01] MEDS: DexAMETHasone SOD PHOS 10MG/1ML VIAL INJ IV SCH (09:37)
[2020-04-01] MEDS: FUROSEMIDE 20 MG/2 ML VIAL IV SCH (09:37)
[2020-04-01] MEDS: AZITHROMYCIN 500MG/ 250ML 250 ML IV SCH (09:39)
[2020-04-01] MEDS ORDERED: TPN PER PHARMACY IV NR ×18 (10:15→20:00)
[2020-04-01] MEDS: BUDESONIDE (INHALATION) 0.5 MG/2 ML NEB NEB SCH ×2 (10:27→17:55)
[2020-04-01] MEDS: ALBUTEROL SULF 2.5 MG/0.5ML(0.5%) NEB SOLN NEB PRN ×2 (10:28→17:55)
[2020-04-01] MEDS: MIDAZOLAM DRIP 50 mg/50mL 50 ML IV SCH ×2 (11:15→17:10)
[2020-04-01] MEDS: AZTREONAM 1GM INJ 1 GM in D5W 5% 50 ML IV SCH ×2 (14:00→22:18)
[2020-04-01] MEDS ORDERED: VANCOMYCIN 1GM/250ML 250 ML IV SCH (16:00)
[2020-04-01] MEDS: PROPOFOL 100 ML IV SCH (17:10)
[2020-04-01] MEDS: fentaNYL Drip 2500mCg/250mlNS 250 ML IV SCH (18:08)
[2020-04-02] VITALS (98 sets, daily range): BP systolic 88–140; BP diastolic 61–95
[2020-04-02] MEDS: NOREPINEPHRINE 8 MG/250ML KIT 250 ML IV SCH (05:29)
[2020-04-02] MEDS: AZTREONAM 1GM INJ 1 GM in D5W 5% 50 ML IV SCH ×3 (06:24→22:18)
[2020-04-02] MEDS: ACCU-CHEK COMFORT CURVE STRIP VI SCH ×4 (06:24→18:11)
[2020-04-02] MEDS: fentaNYL Drip 2500mCg/250mlNS 250 ML IV SCH (06:25)
[2020-04-02] MEDS: InsuLIN REG 1unit/0.01ml Soln (100units/ml) SC SCH ×4 (06:25→18:11)
[2020-04-02 06:30] LABS: Potassium 3.5 mmol/L (3.5-5.1)
[2020-04-02 06:36] LABS: Albumin 1.6 g/dL (3.4-5.0); BUN/Creatinine Ratio 30.2; Calcium 7.7 mg/dL (8.5-10.1); Magnesium 2.2 mg/dL (1.6-2.6)
[2020-04-02 06:39] LABS: Bilirubin, Total 0.6 mg/dL (0.2-1.0); Phosphorus 2.5 mg/dL (2.5-4.90); Total Protein 5.6 g/dL (6.4-8.2)
[2020-04-02] MEDS: BUDESONIDE (INHALATION) 0.5 MG/2 ML NEB NEB SCH ×2 (09:43→21:36)
[2020-04-02] MEDS: ENOXAPARIN SOD 60 MG/0.6 ML SYRINGE SC SCH ×2 (10:00→22:19)
[2020-04-02] MEDS: DexAMETHasone SOD PHOS 10MG/1ML VIAL INJ IV SCH (10:00)
[2020-04-02] MEDS: FAMOTIDINE (10MG/ML) 2ML VL IV SCH (10:00)
[2020-04-02] MEDS: SODIUM CHLOR 0.9% PF (SALINE LOCK) 10ML VIAL/SYR IV SCH ×2 (10:00→22:19)
[2020-04-02] MEDS: FLUCONAZOLE 200MG/100ML 100 ML IV SCH (10:00)
[2020-04-02] MEDS: CHOLECALCIFEROL (VITD3) 2,000 UNIT CAP/TAB PO SCH (10:00)
[2020-04-02] MEDS: ZINC SULFATE 220mg CAP or TAB PO SCH (10:00)
[2020-04-02] MEDS: ASCORBIC ACID 1,000 MG TAB PO SCH (10:00)
[2020-04-02] MEDS: FUROSEMIDE 20 MG/2 ML VIAL IV SCH (10:00)
[2020-04-02] MEDS ORDERED: POTASSIUM PHOSP 22MEQ(15MMOLE) in NS 100 ML IV ONE (13:00)
[2020-04-02] MEDS ORDERED: VANCOMYCIN PER PHARMACY 1,000 MG IV SCH (13:00)
[2020-04-02] MEDS: ACETAMINOPHEN 650 mg PER 20.3 mL UD GT PRN (14:55)
[2020-04-02] MEDS: VANCOMYCIN 1GM/250ML 250 ML IV SCH (16:47)
[2020-04-02] MEDS: TPN PER PHARMACY IV NR ×10 (20:36)
[2020-04-02] MEDS ORDERED: FAMOTIDINE (10MG/ML) 2ML VL IV SCH (22:00)
[2020-04-03] VITALS (100 sets, daily range): BP systolic 88–131; BP diastolic 57–83
[2020-04-03] MEDS: VANCOMYCIN 1GM/250ML 250 ML IV SCH ×2 (04:23→16:00)
[2020-04-03] MEDS: InsuLIN REG 1unit/0.01ml Soln (100units/ml) SC SCH ×5 (06:00→23:39)
[2020-04-03] MEDS: AZTREONAM 1GM INJ 1 GM in D5W 5% 50 ML IV SCH ×3 (06:00→21:40)
[2020-04-03] MEDS: MIDAZOLAM DRIP 50 mg/50mL 50 ML IV SCH (06:00)
[2020-04-03] MEDS: NOREPINEPHRINE 8 MG/250ML KIT 250 ML IV SCH (06:00)
[2020-04-03] MEDS: ACCU-CHEK COMFORT CURVE STRIP VI SCH ×5 (06:00→23:40)
[2020-04-03] MEDS: PROPOFOL 100 ML IV SCH (06:00)
[2020-04-03] MEDS: ALBUTEROL SULF 2.5 MG/0.5ML(0.5%) NEB SOLN NEB PRN (07:05)
[2020-04-03] MEDS: BUDESONIDE (INHALATION) 0.5 MG/2 ML NEB NEB SCH ×2 (07:05→22:28)
[2020-04-03 07:56] LABS: Potassium 3.5 mmol/L (3.5-5.1)
[2020-04-03 08:27] LABS: Albumin 1.6 g/dL (3.4-5.0); BUN/Creatinine Ratio 34.8; Calcium 7.6 mg/dL (8.5-10.1); Magnesium 2.3 mg/dL (1.6-2.6); Phosphorus 2.7 mg/dL (2.5-4.90); Total Protein 5.7 g/dL (6.4-8.2)
[2020-04-03] MEDS ORDERED: POTASSIUM CHL 20MEQ/100ML 100 ML IV ONE (09:45)
[2020-04-03] MEDS: ASCORBIC ACID 1,000 MG TAB PO SCH (10:00)
[2020-04-03] MEDS: CHOLECALCIFEROL (VITD3) 2,000 UNIT CAP/TAB PO SCH (10:00)
[2020-04-03] MEDS: SODIUM CHLOR 0.9% PF (SALINE LOCK) 10ML VIAL/SYR IV SCH ×2 (10:00→21:40)
[2020-04-03] MEDS: ZINC SULFATE 220mg CAP or TAB PO SCH (10:00)
[2020-04-03] MEDS: FAMOTIDINE (10MG/ML) 2ML VL IV SCH ×2 (10:00→21:40)
[2020-04-03] MEDS: DexAMETHasone SOD PHOS 10MG/1ML VIAL INJ IV SCH (10:00)
[2020-04-03] MEDS: ENOXAPARIN SOD 60 MG/0.6 ML SYRINGE SC SCH ×2 (10:00→21:40)
[2020-04-03] MEDS: FUROSEMIDE 20 MG/2 ML VIAL IV SCH (10:00)
[2020-04-03] MEDS: FLUCONAZOLE 200MG/100ML 100 ML IV SCH (10:00)
[2020-04-03] MEDS: TPN PER PHARMACY IV NR ×10 (19:54)
[2020-04-03] MEDS ORDERED: TPN PER PHARMACY IV NR ×10 (20:00)
[2020-04-04] VITALS (96 sets, daily range): BP systolic 97–136; BP diastolic 64–87
[2020-04-04] MEDS: VANCOMYCIN 1GM/250ML 250 ML IV SCH ×3 (04:00→20:00)
[2020-04-04] MEDS: InsuLIN REG 1unit/0.01ml Soln (100units/ml) SC SCH ×3 (05:31→18:00)
[2020-04-04] MEDS: ACCU-CHEK COMFORT CURVE STRIP VI SCH ×3 (05:32→18:00)
[2020-04-04] MEDS: AZTREONAM 1GM INJ 1 GM in D5W 5% 50 ML IV SCH ×3 (05:36→21:38)
[2020-04-04] MEDS: PROPOFOL 100 ML IV SCH ×2 (05:37→11:57)
[2020-04-04] MEDS: fentaNYL Drip 2500mCg/250mlNS 250 ML IV SCH (05:37)
[2020-04-04] MEDS: NOREPINEPHRINE 8 MG/250ML KIT 250 ML IV SCH (05:37)
[2020-04-04] MEDS: MIDAZOLAM DRIP 50 mg/50mL 50 ML IV SCH (05:37)
[2020-04-04 06:08] LABS: Albumin 1.5 g/dL (3.4-5.0); Calcium 7.9 mg/dL (8.5-10.1); Potassium 4.9 mmol/L (3.5-5.1)
[2020-04-04] MEDS: BUDESONIDE (INHALATION) 0.5 MG/2 ML NEB NEB SCH ×2 (06:12→18:52)
[2020-04-04] MEDS: ALBUTEROL SULF 2.5 MG/0.5ML(0.5%) NEB SOLN NEB PRN ×3 (06:12→18:53)
[2020-04-04 06:13] LABS: BUN/Creatinine Ratio 32.7; Bilirubin, Total 0.7 mg/dL (0.2-1.0); Magnesium 2.4 mg/dL (1.6-2.6); Phosphorus 1.9 mg/dL (2.5-4.90); Total Protein 5.8 g/dL (6.4-8.2)
[2020-04-04 08:32] LABS: Basophils # (auto) 0 10 ^3/uL (0-0.2); Basophils % (auto) 0.2 % (0.0-2.0); Eosinophils # (auto) 0 10 ^3/uL (0-0.8); Hematocrit 34.4 % (41.0-53.0); Hemoglobin 11.9 g/dL (13.5-17.5); Lymphocytes # (auto) 0.3 10 ^3/uL (0.4-5.4); Lymphocytes % (auto) 2.4 % (10.0-50.0); Mean Corpuscular Hemoglobin 31.1 pg (28.0-32.0); Mean Corpuscular Hgb Conc. 34.7 g/dL (32.0-36.0); Mean Corpuscular Volume 89.8 fL (80.0-100.0); Monocytes # (auto) 0.4 10 ^3/uL (0-1.3); Monocytes % (auto) 3.8 % (0.0-12.0); Neutrophils # (auto) 10.4 10 ^3/uL (1.6-8.6); Neutrophils % (auto) 93.6 % (37.0-80.0); Platelet Count (auto) 175 10^3/uL (140-450); Red Blood Cells 3.83 10^6/uL (4.5-5.90); Red Cell Distribution Width 13.1 % (11.8-14.3); White Blood Cell 11.1 10^3/uL (4.4-10.8)
[2020-04-04] MEDS: ASCORBIC ACID 1,000 MG TAB PO SCH (10:00)
[2020-04-04] MEDS: CHOLECALCIFEROL (VITD3) 2,000 UNIT CAP/TAB PO SCH (10:00)
[2020-04-04] MEDS: FUROSEMIDE 20 MG/2 ML VIAL IV SCH (10:00)
[2020-04-04] MEDS: ZINC SULFATE 220mg CAP or TAB PO SCH (10:00)
[2020-04-04] MEDS: FAMOTIDINE (10MG/ML) 2ML VL IV SCH ×2 (10:00→21:36)
[2020-04-04] MEDS: FLUCONAZOLE 200MG/100ML 100 ML IV SCH (10:00)
[2020-04-04] MEDS: ENOXAPARIN SOD 60 MG/0.6 ML SYRINGE SC SCH ×2 (10:00→21:36)
[2020-04-04] MEDS: SODIUM CHLOR 0.9% PF (SALINE LOCK) 10ML VIAL/SYR IV SCH ×2 (10:00→21:36)
[2020-04-04] MEDS: DexAMETHasone SOD PHOS 10MG/1ML VIAL INJ IV SCH (10:00)
[2020-04-04] MEDS ORDERED: SODIUM PHOSP 40 MEQ in D5W 5% 250 ML IV ONE (14:00)
[2020-04-04] MEDS ORDERED: TPN PER PHARMACY IV NR ×10 (20:00)
[2020-04-05] VITALS (94 sets, daily range): BP systolic 75–207; BP diastolic 53–116
[2020-04-05] MEDS: InsuLIN REG 1unit/0.01ml Soln (100units/ml) SC SCH ×5 (00:03→23:41)
[2020-04-05] MEDS: AZTREONAM 1GM INJ 1 GM in D5W 5% 50 ML IV SCH ×3 (05:54→21:38)
[2020-04-05] MEDS: ACCU-CHEK COMFORT CURVE STRIP VI SCH ×5 (05:54→23:41)
[2020-04-05] MEDS: MIDAZOLAM DRIP 50 mg/50mL 50 ML IV SCH ×3 (05:55→23:07)
[2020-04-05] MEDS: fentaNYL Drip 2500mCg/250mlNS 250 ML IV SCH ×2 (05:55→18:00)
[2020-04-05] MEDS: NOREPINEPHRINE 8 MG/250ML KIT 250 ML IV SCH ×2 (05:55→10:00)
[2020-04-05] MEDS: BUDESONIDE (INHALATION) 0.5 MG/2 ML NEB NEB SCH ×2 (07:27→18:45)
[2020-04-05] MEDS: ALBUTEROL SULF 2.5 MG/0.5ML(0.5%) NEB SOLN NEB PRN ×2 (07:27→18:45)
[2020-04-05] MEDS: CHOLECALCIFEROL (VITD3) 2,000 UNIT CAP/TAB PO SCH (09:30)
[2020-04-05] MEDS: ZINC SULFATE 220mg CAP or TAB PO SCH (09:30)
[2020-04-05] MEDS: DexAMETHasone SOD PHOS 10MG/1ML VIAL INJ IV SCH (09:30)
[2020-04-05] MEDS: FUROSEMIDE 20 MG/2 ML VIAL IV SCH (09:30)
[2020-04-05] MEDS: FAMOTIDINE (10MG/ML) 2ML VL IV SCH ×2 (09:30→21:38)
[2020-04-05] MEDS: FLUCONAZOLE 200MG/100ML 100 ML IV SCH (09:30)
[2020-04-05] MEDS: ENOXAPARIN SOD 60 MG/0.6 ML SYRINGE SC SCH ×2 (09:30→21:38)
[2020-04-05] MEDS: ASCORBIC ACID 1,000 MG TAB PO SCH (09:30)
[2020-04-05] MEDS: SODIUM CHLOR 0.9% PF (SALINE LOCK) 10ML VIAL/SYR IV SCH ×2 (09:30→21:38)
[2020-04-05 10:41] LABS: Basophils # (auto) 0 10 ^3/uL (0-0.2); Basophils % (auto) 0.3 % (0.0-2.0); Eosinophils # (auto) 0 10 ^3/uL (0-0.8); Hematocrit 35.7 % (41.0-53.0); Hemoglobin 12.4 g/dL (13.5-17.5); Lymphocytes # (auto) 0.4 10 ^3/uL (0.4-5.4); Mean Corpuscular Hemoglobin 31.5 pg (28.0-32.0); Mean Corpuscular Hgb Conc. 34.6 g/dL (32.0-36.0); Monocytes # (auto) 0.9 10 ^3/uL (0-1.3); Monocytes % (auto) 6.5 % (0.0-12.0); Neutrophils # (auto) 13.1 10 ^3/uL (1.6-8.6); Neutrophils % (auto) 90.2 % (37.0-80.0); Platelet Count (auto) 220 10^3/uL (140-450); Red Blood Cells 3.92 10^6/uL (4.5-5.90); Red Cell Distribution Width 13.1 % (11.8-14.3); White Blood Cell 14.5 10^3/uL (4.4-10.8)
[2020-04-05] MEDS: VANCOMYCIN 1GM/250ML 250 ML IV SCH ×3 (12:00→23:43)
[2020-04-05] MEDS: PROPOFOL 100 ML IV SCH ×2 (12:00→18:00)
[2020-04-05 12:12] LABS: Albumin 1.7 g/dL (3.4-5.0); BUN/Creatinine Ratio 40.4; Bilirubin, Total 0.8 mg/dL (0.2-1.0); Calcium 7.8 mg/dL (8.5-10.1); Magnesium 2.2 mg/dL (1.6-2.6); Phosphorus 2.7 mg/dL (2.5-4.90); Total Protein 5.7 g/dL (6.4-8.2)
[2020-04-05] MEDS ORDERED: TPN PER PHARMACY IV NR ×9 (20:00)
[2020-04-06] VITALS (101 sets, daily range): BP systolic 98–137; BP diastolic 63–88
[2020-04-06] MEDS: NOREPINEPHRINE 8 MG/250ML KIT 250 ML IV SCH ×2 (04:01→22:58)
[2020-04-06] MEDS: MIDAZOLAM DRIP 50 mg/50mL 50 ML IV SCH ×6 (04:02→22:58)
[2020-04-06 04:51] LABS: Albumin 1.6 g/dL (3.4-5.0); Potassium 4.2 mmol/L (3.5-5.1)
[2020-04-06 04:56] LABS: Calcium 7.9 mg/dL (8.5-10.1); Magnesium 2.3 mg/dL (1.6-2.6)
[2020-04-06 04:58] LABS: Bilirubin, Total 0.8 mg/dL (0.2-1.0); Phosphorus 2.9 mg/dL (2.5-4.90); Total Protein 5.6 g/dL (6.4-8.2)
[2020-04-06] MEDS: ACCU-CHEK COMFORT CURVE STRIP VI SCH ×3 (05:10→18:00)
[2020-04-06] MEDS: InsuLIN REG 1unit/0.01ml Soln (100units/ml) SC SCH ×3 (05:10→18:00)
[2020-04-06] MEDS: AZTREONAM 1GM INJ 1 GM in D5W 5% 50 ML IV SCH ×3 (05:56→22:00)
[2020-04-06] MEDS: fentaNYL Drip 2500mCg/250mlNS 250 ML IV SCH (06:17)
[2020-04-06] MEDS: ALBUTEROL SULF 2.5 MG/0.5ML(0.5%) NEB SOLN NEB PRN ×3 (06:25→19:49)
[2020-04-06] MEDS: DexAMETHasone SOD PHOS 10MG/1ML VIAL INJ IV SCH (10:40)
[2020-04-06] MEDS: CHOLECALCIFEROL (VITD3) 2,000 UNIT CAP/TAB PO SCH (10:41)
[2020-04-06] MEDS: FAMOTIDINE (10MG/ML) 2ML VL IV SCH ×2 (10:41→21:20)
[2020-04-06] MEDS: ZINC SULFATE 220mg CAP or TAB PO SCH (10:41)
[2020-04-06] MEDS: SODIUM CHLOR 0.9% PF (SALINE LOCK) 10ML VIAL/SYR IV SCH ×2 (10:41→21:20)
[2020-04-06] MEDS: ASCORBIC ACID 1,000 MG TAB PO SCH (10:42)
[2020-04-06] MEDS: ENOXAPARIN SOD 60 MG/0.6 ML SYRINGE SC SCH ×2 (10:42→21:20)
[2020-04-06] MEDS: VANCOMYCIN 1GM/250ML 250 ML IV SCH ×3 (10:44→23:56)
[2020-04-06] MEDS: PROPOFOL 100 ML IV SCH ×3 (12:14→22:58)
[2020-04-06] MEDS: BUDESONIDE (INHALATION) 0.5 MG/2 ML NEB NEB SCH ×2 (12:30→19:48)
[2020-04-06] MEDS: FLUCONAZOLE 200MG/100ML 100 ML IV SCH (17:05)
[2020-04-06] MEDS: FUROSEMIDE 20 MG/2 ML VIAL IV SCH (17:07)
[2020-04-06] MEDS ORDERED: TPN PER PHARMACY IV NR ×9 (20:00)
[2020-04-07] VITALS (98 sets, daily range): BP systolic 81–166; BP diastolic 52–105
[2020-04-07] MEDS: ACCU-CHEK COMFORT CURVE STRIP VI SCH ×4 (00:07→18:00)
[2020-04-07] MEDS: InsuLIN REG 1unit/0.01ml Soln (100units/ml) SC SCH ×4 (00:15→18:00)
[2020-04-07 04:46] LABS: Hematocrit 33.3 % (41.0-53.0); Hemoglobin 11.4 g/dL (13.5-17.5); Mean Corpuscular Hemoglobin 31.5 pg (28.0-32.0); Mean Corpuscular Hgb Conc. 34.3 g/dL (32.0-36.0); Platelet Count (auto) 208 10^3/uL (140-450); Red Blood Cells 3.62 10^6/uL (4.5-5.90); Red Cell Distribution Width 13.1 % (11.8-14.3)
[2020-04-07 04:51] LABS: Basophils % (manual) 0 (0.0-2.0); Blast Cells 0; Eosinophils % (manual) 0 (0-7); Promyelocytes % 0; Reactive Lymphocytes 0
[2020-04-07 05:03] LABS: Albumin 1.6 g/dL (3.4-5.0); Calcium 7.7 mg/dL (8.5-10.1); Magnesium 2.2 mg/dL (1.6-2.6)
[2020-04-07 05:07] LABS: Bilirubin, Total 0.7 mg/dL (0.2-1.0); Phosphorus 2.7 mg/dL (2.5-4.90); Total Protein 5.6 g/dL (6.4-8.2)
[2020-04-07 05:27] LABS: Band Neutrophils % (manual) 3; Lymphocytes % (manual) 5 (10.0-50.0); Metamyelocytes % 1; Monocytes % (manual) 8 (0-12); Myelocytes % 1
[2020-04-07] MEDS: AZTREONAM 1GM INJ 1 GM in D5W 5% 50 ML IV SCH ×3 (06:16→23:10)
[2020-04-07] MEDS: BUDESONIDE (INHALATION) 0.5 MG/2 ML NEB NEB SCH ×2 (06:25→19:28)
[2020-04-07] MEDS: ALBUTEROL SULF 2.5 MG/0.5ML(0.5%) NEB SOLN NEB PRN ×2 (06:26→19:28)
[2020-04-07] MEDS: MIDAZOLAM DRIP 50 mg/50mL 50 ML IV SCH ×2 (07:27→23:24)
[2020-04-07] MEDS: fentaNYL Drip 2500mCg/250mlNS 250 ML IV SCH ×2 (07:42→20:47)
[2020-04-07] MEDS: VANCOMYCIN 1GM/250ML 250 ML IV SCH ×3 (08:18→23:44)
[2020-04-07] MEDS: PROPOFOL 100 ML IV SCH ×2 (08:36→16:41)
[2020-04-07] MEDS: CHOLECALCIFEROL (VITD3) 2,000 UNIT CAP/TAB PO SCH (10:00)
[2020-04-07] MEDS: DexAMETHasone SOD PHOS 10MG/1ML VIAL INJ IV SCH (10:12)
[2020-04-07] MEDS: FUROSEMIDE 20 MG/2 ML VIAL IV SCH (10:13)
[2020-04-07] MEDS: FAMOTIDINE (10MG/ML) 2ML VL IV SCH ×2 (10:14→23:10)
[2020-04-07] MEDS: ZINC SULFATE 220mg CAP or TAB PO SCH (10:14)
[2020-04-07] MEDS: SODIUM CHLOR 0.9% PF (SALINE LOCK) 10ML VIAL/SYR IV SCH ×2 (10:14→23:10)
[2020-04-07] MEDS: ASCORBIC ACID 1,000 MG TAB PO SCH (10:14)
[2020-04-07] MEDS: FLUCONAZOLE 200MG/100ML 100 ML IV SCH (11:12)
[2020-04-07] MEDS: NOREPINEPHRINE 8 MG/250ML KIT 250 ML IV SCH (16:23)
[2020-04-07] MEDS: TPN PER PHARMACY IV NR ×11 (20:00)
[2020-04-07] MEDS ORDERED: GABA300C10 PO (20:12)
[2020-04-07] MEDS ORDERED: AMLO-489 PO (20:12)
[2020-04-07] MEDS ORDERED: INSLISPI SC (20:12)
[2020-04-07] MEDS ORDERED: OMEP-434 PO (20:12)
[2020-04-07] MEDS ORDERED: LEVO25TA6 PO (20:12)
[2020-04-07] MEDS ORDERED: SIMV5TAB50 PO (20:12)
[2020-04-07] MEDS ORDERED: LINA5TAB PO (20:12)
[2020-04-07] MEDS ORDERED: LEVEMIR SC (20:12)
[2020-04-07] MEDS ORDERED: RALO60TA13 PO (20:12)
[2020-04-08] VITALS (95 sets, daily range): BP systolic 85–163; BP diastolic 56–99
[2020-04-08] MEDS: ACCU-CHEK COMFORT CURVE STRIP VI SCH ×4 (00:35→19:04)
[2020-04-08] MEDS: InsuLIN REG 1unit/0.01ml Soln (100units/ml) SC SCH ×4 (00:35→19:04)
[2020-04-08] MEDS: PROPOFOL 100 ML IV SCH ×3 (02:23→22:45)
[2020-04-08] MEDS: AZTREONAM 1GM INJ 1 GM in D5W 5% 50 ML IV SCH ×3 (06:15→22:46)
[2020-04-08] MEDS: BUDESONIDE (INHALATION) 0.5 MG/2 ML NEB NEB SCH ×2 (06:20→22:26)
[2020-04-08] MEDS: ALBUTEROL SULF 2.5 MG/0.5ML(0.5%) NEB SOLN NEB PRN ×2 (06:20→22:26)
[2020-04-08] MEDS: fentaNYL Drip 2500mCg/250mlNS 250 ML IV SCH ×2 (07:10→22:39)
[2020-04-08 07:31] LABS: Albumin 1.6 g/dL (3.4-5.0); BUN/Creatinine Ratio 46.9; Bilirubin, Total 0.9 mg/dL (0.2-1.0); Calcium 7.9 mg/dL (8.5-10.1); Magnesium 2.2 mg/dL (1.6-2.6); Phosphorus 2.8 mg/dL (2.5-4.90); Total Protein 5.4 g/dL (6.4-8.2)
[2020-04-08] MEDS: ASCORBIC ACID 1,000 MG TAB PO SCH (10:00)
[2020-04-08] MEDS: MIDAZOLAM DRIP 50 mg/50mL 50 ML IV SCH (10:04)
[2020-04-08] MEDS: VANCOMYCIN 1GM/250ML 250 ML IV SCH ×2 (10:28→19:06)
[2020-04-08] MEDS: DexAMETHasone SOD PHOS 4 MG/1ML SDV INJ IV SCH (10:28)
[2020-04-08] MEDS: FUROSEMIDE 20 MG/2 ML VIAL IV SCH (10:30)
[2020-04-08] MEDS: FAMOTIDINE (10MG/ML) 2ML VL IV SCH ×2 (10:31→22:46)
[2020-04-08] MEDS: SODIUM CHLOR 0.9% PF (SALINE LOCK) 10ML VIAL/SYR IV SCH ×2 (10:31→22:45)
[2020-04-08] MEDS: ZINC SULFATE 220mg CAP or TAB PO SCH (10:32)
[2020-04-08] MEDS: CHOLECALCIFEROL (VITD3) 2,000 UNIT CAP/TAB PO SCH (10:32)
[2020-04-08] MEDS: FLUCONAZOLE 200MG/100ML 100 ML IV SCH (12:21)
[2020-04-08] MEDS: TPN PER PHARMACY IV NR ×11 (19:55)
[2020-04-08] MEDS ORDERED: TPN PER PHARMACY IV NR ×9 (20:00)
[2020-04-09] VITALS (101 sets, daily range): BP systolic 86–139; BP diastolic 46–100
[2020-04-09] MEDS: VANCOMYCIN 1GM/250ML 250 ML IV SCH ×4 (03:02→23:16)
[2020-04-09] MEDS: PROPOFOL 100 ML IV SCH ×2 (04:20→12:00)
[2020-04-09] MEDS: AZTREONAM 1GM INJ 1 GM in D5W 5% 50 ML IV SCH ×3 (06:00→21:34)
[2020-04-09] MEDS: ACCU-CHEK COMFORT CURVE STRIP VI SCH ×5 (06:15→23:16)
[2020-04-09] MEDS: NOREPINEPHRINE 8 MG/250ML KIT 250 ML IV SCH ×2 (06:15→23:09)
[2020-04-09] MEDS: InsuLIN REG 1unit/0.01ml Soln (100units/ml) SC SCH ×5 (06:15→23:22)
[2020-04-09] MEDS: ALBUTEROL SULF 2.5 MG/0.5ML(0.5%) NEB SOLN NEB PRN ×2 (06:25→19:51)
[2020-04-09] MEDS: BUDESONIDE (INHALATION) 0.5 MG/2 ML NEB NEB SCH ×2 (06:25→19:51)
[2020-04-09 07:22] LABS: Calcium 7.9 mg/dL (8.5-10.1); Potassium 3.9 mmol/L (3.5-5.1)
[2020-04-09 07:28] LABS: Albumin 1.6 g/dL (3.4-5.0); BUN/Creatinine Ratio 38.5; Bilirubin, Total 1.5 mg/dL (0.2-1.0); Phosphorus 3.4 mg/dL (2.5-4.90); Total Protein 5.4 g/dL (6.4-8.2)
[2020-04-09] MEDS: ACETAMINOPHEN 650 mg PER 20.3 mL UD GT PRN (07:30)
[2020-04-09] MEDS: DexAMETHasone SOD PHOS 4 MG/1ML SDV INJ IV SCH (10:07)
[2020-04-09] MEDS: SODIUM CHLOR 0.9% PF (SALINE LOCK) 10ML VIAL/SYR IV SCH ×2 (10:07→21:35)
[2020-04-09] MEDS: FAMOTIDINE (10MG/ML) 2ML VL IV SCH ×2 (10:07→21:35)
[2020-04-09] MEDS: FUROSEMIDE 20 MG/2 ML VIAL IV SCH (10:09)
[2020-04-09] MEDS: ZINC SULFATE 220mg CAP or TAB PO SCH (10:10)
[2020-04-09] MEDS: CHOLECALCIFEROL (VITD3) 2,000 UNIT CAP/TAB PO SCH (10:10)
[2020-04-09] MEDS: ASCORBIC ACID 1,000 MG TAB PO SCH (10:11)
[2020-04-09] MEDS: FLUCONAZOLE 200MG/100ML 100 ML IV SCH (11:00)
[2020-04-09] MEDS: fentaNYL Drip 2500mCg/250mlNS 250 ML IV SCH ×2 (11:20→22:51)
[2020-04-09] MEDS: MIDAZOLAM DRIP 50 mg/50mL 50 ML IV SCH ×2 (12:00)
[2020-04-09] MEDS ORDERED: TPN PER PHARMACY IV NR ×9 (20:00)
[2020-04-10] VITALS (99 sets, daily range): BP systolic 72–156; BP diastolic 41–98
[2020-04-10] MEDS: MIDAZOLAM DRIP 50 mg/50mL 50 ML IV SCH ×4 (00:26→18:35)
[2020-04-10] MEDS: PROPOFOL 100 ML IV SCH ×5 (04:25→22:37)
[2020-04-10] MEDS: InsuLIN REG 1unit/0.01ml Soln (100units/ml) SC SCH ×4 (06:14→23:55)
[2020-04-10] MEDS: ACCU-CHEK COMFORT CURVE STRIP VI SCH ×4 (06:15→23:55)
[2020-04-10] MEDS: AZTREONAM 1GM INJ 1 GM in D5W 5% 50 ML IV SCH (06:15)
[2020-04-10 06:32] LABS: Potassium 4.4 mmol/L (3.5-5.1)
[2020-04-10 06:43] LABS: Albumin 1.7 g/dL (3.4-5.0); BUN/Creatinine Ratio 44.2; Bilirubin, Total 1.3 mg/dL (0.2-1.0); Calcium 8.2 mg/dL (8.5-10.1); Magnesium 2.4 mg/dL (1.6-2.6); Phosphorus 3.3 mg/dL (2.5-4.90); Total Protein 6.1 g/dL (6.4-8.2)
[2020-04-10] MEDS: BUDESONIDE (INHALATION) 0.5 MG/2 ML NEB NEB SCH ×2 (07:22→22:05)
[2020-04-10] MEDS: VANCOMYCIN 1GM/250ML 250 ML IV SCH ×3 (09:01→23:59)
[2020-04-10] MEDS: fentaNYL Drip 2500mCg/250mlNS 250 ML IV SCH ×2 (09:23→21:13)
[2020-04-10] MEDS: ZINC SULFATE 220mg CAP or TAB PO SCH (10:00)
[2020-04-10] MEDS: SODIUM CHLOR 0.9% PF (SALINE LOCK) 10ML VIAL/SYR IV SCH ×2 (10:00→21:18)
[2020-04-10] MEDS: CHOLECALCIFEROL (VITD3) 2,000 UNIT CAP/TAB PO SCH (10:00)
[2020-04-10] MEDS: FAMOTIDINE (10MG/ML) 2ML VL IV SCH ×2 (10:00→21:18)
[2020-04-10] MEDS: FLUCONAZOLE 200MG/100ML 100 ML IV SCH (10:00)
[2020-04-10] MEDS: ASCORBIC ACID 1,000 MG TAB PO SCH (10:00)
[2020-04-10] MEDS: DexAMETHasone SOD PHOS 4 MG/1ML SDV INJ IV SCH (11:21)
[2020-04-10] MEDS: FUROSEMIDE 20 MG/2 ML VIAL IV SCH (11:24)
[2020-04-10 11:25] LABS: Hematocrit 34.9 % (41.0-53.0); Hemoglobin 11.6 g/dL (13.5-17.5); Mean Corpuscular Hemoglobin 30.7 pg (28.0-32.0); Mean Corpuscular Hgb Conc. 33.4 g/dL (32.0-36.0); Mean Corpuscular Volume 91.9 fL (80.0-100.0); Platelet Count (auto) 263 10^3/uL (140-450); Red Cell Distribution Width 13.6 % (11.8-14.3); White Blood Cell 16.8 10^3/uL (4.4-10.8)
[2020-04-10] MEDS: NOREPINEPHRINE 8 MG/250ML KIT 250 ML IV SCH (11:43)
[2020-04-10 11:59] LABS: Basophils % (manual) 0 (0.0-2.0); Blast Cells 0; Lymphocytes % (manual) 0 (10.0-50.0); Metamyelocytes % 0; Myelocytes % 0; Promyelocytes % 0; Reactive Lymphocytes 0
[2020-04-10 13:40] LABS: Band Neutrophils % (manual) 1; Eosinophils % (manual) 2 (0-7); Monocytes % (manual) 5 (0-12)
[2020-04-10] MEDS: ACETYLCYSTEINE 20%(200MG/ML) SOL 4ML NEB SCH ×2 (14:00→22:05)
[2020-04-10] MEDS ORDERED: TPN PER PHARMACY IV NR ×8 (20:00)
[2020-04-10] MEDS: MEROPENEM 1GM IVPB 100 ML IV SCH (21:18)
[2020-04-10] MEDS: ALBUTEROL SULF 2.5 MG/0.5ML(0.5%) NEB SOLN NEB PRN (22:05)
[2020-04-11] VITALS (102 sets, daily range): BP systolic 74–130; BP diastolic 43–85
[2020-04-11] MEDS: MIDAZOLAM DRIP 50 mg/50mL 50 ML IV SCH ×4 (00:01→14:42)
[2020-04-11] MEDS: NOREPINEPHRINE 8 MG/250ML KIT 250 ML IV SCH (00:28)
[2020-04-11] MEDS: PROPOFOL 100 ML IV SCH ×2 (03:34→14:41)
[2020-04-11] MEDS: InsuLIN REG 1unit/0.01ml Soln (100units/ml) SC SCH ×3 (06:00→17:37)
[2020-04-11 06:10] LABS: Potassium 4.9 mmol/L (3.5-5.1)
[2020-04-11 06:25] LABS: Albumin 1.7 g/dL (3.4-5.0); BUN/Creatinine Ratio 43.5; Bilirubin, Total 1.4 mg/dL (0.2-1.0); Calcium 8.2 mg/dL (8.5-10.1); Total Protein 5.7 g/dL (6.4-8.2)
[2020-04-11] MEDS: ACETYLCYSTEINE 20%(200MG/ML) SOL 4ML NEB SCH ×3 (06:28→18:35)
[2020-04-11] MEDS: BUDESONIDE (INHALATION) 0.5 MG/2 ML NEB NEB SCH ×2 (06:28→18:35)
[2020-04-11] MEDS: ACCU-CHEK COMFORT CURVE STRIP VI SCH ×3 (06:32→17:37)
[2020-04-11] MEDS: ALBUTEROL SULF 2.5 MG/0.5ML(0.5%) NEB SOLN NEB PRN ×3 (06:32→18:35)
[2020-04-11] MEDS: MEROPENEM 1GM IVPB 100 ML IV SCH ×3 (06:32→22:00)
[2020-04-11] MEDS: VANCOMYCIN 1GM/250ML 250 ML IV SCH ×2 (07:58→17:41)
[2020-04-11] MEDS: DexAMETHasone SOD PHOS 4 MG/1ML SDV INJ IV SCH (09:53)
[2020-04-11] MEDS: FLUCONAZOLE 200MG/100ML 100 ML IV SCH (09:53)
[2020-04-11] MEDS: ZINC SULFATE 220mg CAP or TAB PO SCH (09:54)
[2020-04-11] MEDS: SODIUM CHLOR 0.9% PF (SALINE LOCK) 10ML VIAL/SYR IV SCH ×2 (09:54→22:00)
[2020-04-11] MEDS: FUROSEMIDE 20 MG/2 ML VIAL IV SCH (09:54)
[2020-04-11] MEDS: FAMOTIDINE (10MG/ML) 2ML VL IV SCH ×2 (09:54→22:00)
[2020-04-11] MEDS: ASCORBIC ACID 1,000 MG TAB PO SCH (09:55)
[2020-04-11] MEDS: CHOLECALCIFEROL (VITD3) 2,000 UNIT CAP/TAB PO SCH (09:55)
[2020-04-11] MEDS: fentaNYL Drip 2500mCg/250mlNS 250 ML IV SCH (10:30)
[2020-04-12] VITALS (99 sets, daily range): BP systolic 82–180; BP diastolic 49–124
[2020-04-12] MEDS: MEROPENEM 1GM IVPB 100 ML IV SCH ×3 (05:07→22:00)
[2020-04-12] MEDS: InsuLIN REG 1unit/0.01ml Soln (100units/ml) SC SCH ×4 (05:15→17:01)
[2020-04-12] MEDS: ACCU-CHEK COMFORT CURVE STRIP VI SCH ×4 (05:15→17:01)
[2020-04-12] MEDS: NOREPINEPHRINE 8 MG/250ML KIT 250 ML IV SCH (05:16)
[2020-04-12] MEDS: ALBUTEROL SULF 2.5 MG/0.5ML(0.5%) NEB SOLN NEB PRN ×3 (06:44→19:46)
[2020-04-12] MEDS: BUDESONIDE (INHALATION) 0.5 MG/2 ML NEB NEB SCH ×2 (06:44→19:46)
[2020-04-12] MEDS: ACETYLCYSTEINE 20%(200MG/ML) SOL 4ML NEB SCH ×3 (06:44→19:46)
[2020-04-12] MEDS: VANCOMYCIN 1GM/250ML 250 ML IV SCH ×3 (09:42→16:10)
[2020-04-12] MEDS: SODIUM CHLOR 0.9% PF (SALINE LOCK) 10ML VIAL/SYR IV SCH ×2 (10:00→22:00)
[2020-04-12] MEDS: CHOLECALCIFEROL (VITD3) 2,000 UNIT CAP/TAB PO SCH (10:00)
[2020-04-12] MEDS: fentaNYL Drip 2500mCg/250mlNS 250 ML IV SCH ×2 (10:30→18:16)
[2020-04-12] MEDS: ZINC SULFATE 220mg CAP or TAB PO SCH (10:56)
[2020-04-12] MEDS: DexAMETHasone SOD PHOS 4 MG/1ML SDV INJ IV SCH (10:56)
[2020-04-12] MEDS: FUROSEMIDE 40 MG/4 ML VIAL IV SCH (10:56)
[2020-04-12] MEDS: ACETAMINOPHEN 650 mg PER 20.3 mL UD GT PRN (10:56)
[2020-04-12] MEDS: ASCORBIC ACID 1,000 MG TAB PO SCH (10:56)
[2020-04-12] MEDS: FAMOTIDINE (10MG/ML) 2ML VL IV SCH ×2 (10:56→22:00)
[2020-04-12] MEDS: FLUCONAZOLE 200MG/100ML 100 ML IV SCH (10:57)
[2020-04-12] MEDS: MIDAZOLAM DRIP 50 mg/50mL 50 ML IV SCH ×2 (13:50→18:16)
[2020-04-12] MEDS: PROPOFOL 100 ML IV SCH (18:15)
[2020-04-13] VITALS (17 sets, daily range): BP systolic 93–145; BP diastolic 44–80
[2020-04-13 05:14] LABS: Basophils # (auto) 0 10 ^3/uL (0-0.2); Basophils % (auto) 0.3 % (0.0-2.0); Eosinophils # (auto) 0.1 10 ^3/uL (0-0.8); Eosinophils % (auto) 0.7 % (0.0-7.0); Hematocrit 32.7 % (41.0-53.0); Hemoglobin 11.2 g/dL (13.5-17.5); Lymphocytes # (auto) 0.5 10 ^3/uL (0.4-5.4); Lymphocytes % (auto) 4.3 % (10.0-50.0); Mean Corpuscular Hemoglobin 31.3 pg (28.0-32.0); Mean Corpuscular Hgb Conc. 34.3 g/dL (32.0-36.0); Mean Corpuscular Volume 91.3 fL (80.0-100.0); Monocytes # (auto) 0.8 10 ^3/uL (0-1.3); Monocytes % (auto) 7.7 % (0.0-12.0); Neutrophils # (auto) 9.5 10 ^3/uL (1.6-8.6); Platelet Count (auto) 305 10^3/uL (140-450); Red Blood Cells 3.58 10^6/uL (4.5-5.90); Red Cell Distribution Width 14.2 % (11.8-14.3); White Blood Cell 10.9 10^3/uL (4.4-10.8)
[2020-04-13 05:31] LABS: Potassium 3.8 mmol/L (3.5-5.1)
[2020-04-13 05:51] LABS: Albumin 1.7 g/dL (3.4-5.0); BUN/Creatinine Ratio 45.5; Bilirubin, Total 1.2 mg/dL (0.2-1.0); Calcium 8.4 mg/dL (8.5-10.1); Total Protein 5.7 g/dL (6.4-8.2)
[2020-04-13] MEDS: MEROPENEM 1GM IVPB 100 ML IV SCH ×3 (06:00→22:00)
[2020-04-13] MEDS: InsuLIN REG 1unit/0.01ml Soln (100units/ml) SC SCH ×4 (06:00→18:22)
[2020-04-13] MEDS: ACETYLCYSTEINE 20%(200MG/ML) SOL 4ML NEB SCH ×2 (06:00→22:00)
[2020-04-13] MEDS: ACCU-CHEK COMFORT CURVE STRIP VI SCH ×4 (06:00→18:22)
[2020-04-13] MEDS: NOREPINEPHRINE 8 MG/250ML KIT 250 ML IV SCH (06:15)
[2020-04-13] MEDS: VANCOMYCIN 1GM/250ML 250 ML IV SCH ×2 (08:00)
[2020-04-13] MEDS: PROPOFOL 100 ML IV SCH ×2 (09:23→14:30)
[2020-04-13] MEDS: fentaNYL Drip 2500mCg/250mlNS 250 ML IV SCH (09:24)
[2020-04-13] MEDS: BUDESONIDE (INHALATION) 0.5 MG/2 ML NEB NEB SCH ×2 (10:00→22:08)
[2020-04-13] MEDS: FLUCONAZOLE 200MG/100ML 100 ML IV SCH (10:30)
[2020-04-13] MEDS: SODIUM CHLOR 0.9% PF (SALINE LOCK) 10ML VIAL/SYR IV SCH ×2 (10:31→22:00)
[2020-04-13] MEDS: ZINC SULFATE 220mg CAP or TAB PO SCH (10:31)
[2020-04-13] MEDS: FUROSEMIDE 40 MG/4 ML VIAL IV SCH (10:33)
[2020-04-13] MEDS: ASCORBIC ACID 1,000 MG TAB PO SCH (10:33)
[2020-04-13] MEDS: FAMOTIDINE (10MG/ML) 2ML VL IV SCH ×2 (10:33→22:00)
[2020-04-13] MEDS: MIDAZOLAM DRIP 50 mg/50mL 50 ML IV SCH ×2 (10:35→14:30)
[2020-04-13] MEDS: CHOLECALCIFEROL (VITD3) 2,000 UNIT CAP/TAB PO SCH (10:35)
[2020-04-13] MEDS ORDERED: DexAMETHasone SOD PHOS 10MG/1ML VIAL INJ ONE (10:46)
[2020-04-13] MEDS: ACETAMINOPHEN 650 mg PER 20.3 mL UD GT PRN (12:00)
[2020-04-13] MEDS: DexAMETHasone SOD PHOS 4 MG/1ML SDV INJ IV SCH (12:34)
[2020-04-13] MEDS: SODIUM CHLORIDE 0.9% 1,000 ML IV SCH ×2 (15:40→21:30)
[2020-04-13] MEDS: ALBUTEROL SULF 2.5 MG/0.5ML(0.5%) NEB SOLN NEB PRN (22:08)
[2020-04-14] VITALS (56 sets, daily range): BP systolic 87–161; BP diastolic 35–87
[2020-04-14 03:58] LABS: Basophils # (auto) 0 10 ^3/uL (0-0.2); Basophils % (auto) 0.4 % (0.0-2.0); Eosinophils # (auto) 0 10 ^3/uL (0-0.8); Eosinophils % (auto) 0.2 % (0.0-7.0); Hematocrit 34.3 % (41.0-53.0); Hemoglobin 11.9 g/dL (13.5-17.5); Lymphocytes # (auto) 0.4 10 ^3/uL (0.4-5.4); Mean Corpuscular Hemoglobin 31.6 pg (28.0-32.0); Mean Corpuscular Hgb Conc. 34.9 g/dL (32.0-36.0); Mean Corpuscular Volume 90.8 fL (80.0-100.0); Monocytes # (auto) 0.7 10 ^3/uL (0-1.3); Monocytes % (auto) 6.8 % (0.0-12.0); Neutrophils # (auto) 9.4 10 ^3/uL (1.6-8.6); Neutrophils % (auto) 88.6 % (37.0-80.0); Platelet Count (auto) 330 10^3/uL (140-450); Red Blood Cells 3.77 10^6/uL (4.5-5.90); Red Cell Distribution Width 14.1 % (11.8-14.3); White Blood Cell 10.6 10^3/uL (4.4-10.8)
[2020-04-14 04:15] LABS: Potassium 4.3 mmol/L (3.5-5.1)
[2020-04-14 04:22] LABS: BUN/Creatinine Ratio 48.9; Calcium 8.2 mg/dL (8.5-10.1)
[2020-04-14] MEDS: MEROPENEM 1GM IVPB 100 ML IV SCH ×3 (05:45→22:00)
[2020-04-14] MEDS: ACCU-CHEK COMFORT CURVE STRIP VI SCH ×4 (05:47→18:00)
[2020-04-14] MEDS: NOREPINEPHRINE 8 MG/250ML KIT 250 ML IV SCH (05:48)
[2020-04-14] MEDS: InsuLIN REG 1unit/0.01ml Soln (100units/ml) SC SCH ×4 (06:00→18:00)
[2020-04-14] MEDS: ACETYLCYSTEINE 20%(200MG/ML) SOL 4ML NEB SCH ×3 (06:42→18:54)
[2020-04-14] MEDS: SODIUM CHLORIDE 0.9% 1,000 ML IV SCH ×2 (07:30→17:30)
[2020-04-14] MEDS ORDERED: DexAMETHasone SOD PHOS 10MG/1ML VIAL INJ ONE (09:59)
[2020-04-14] MEDS ORDERED: acetaZOLAMIDE SODIUM 500 MG VL IV SCH (10:00)
[2020-04-14] MEDS: DexAMETHasone SOD PHOS 4 MG/1ML SDV INJ IV SCH (10:21)
[2020-04-14] MEDS: FLUCONAZOLE 200MG/100ML 100 ML IV SCH (10:21)
[2020-04-14] MEDS: FAMOTIDINE (10MG/ML) 2ML VL IV SCH ×2 (10:24→22:00)
[2020-04-14] MEDS: ZINC SULFATE 220mg CAP or TAB PO SCH (10:24)
[2020-04-14] MEDS: ASCORBIC ACID 1,000 MG TAB PO SCH (10:24)
[2020-04-14] MEDS: SODIUM CHLOR 0.9% PF (SALINE LOCK) 10ML VIAL/SYR IV SCH ×2 (10:24→22:00)
[2020-04-14] MEDS: CHOLECALCIFEROL (VITD3) 2,000 UNIT CAP/TAB PO SCH (10:25)
[2020-04-14] MEDS: BUDESONIDE (INHALATION) 0.5 MG/2 ML NEB NEB SCH ×2 (10:29→18:54)
[2020-04-14] MEDS: ALBUTEROL SULF 2.5 MG/0.5ML(0.5%) NEB SOLN NEB PRN ×2 (13:40→18:54)
[2020-04-14] MEDS: PROPOFOL 100 ML IV SCH (14:41)
[2020-04-15] VITALS (67 sets, daily range): BP systolic 75–145; BP diastolic 45–91
[2020-04-15] MEDS ORDERED: SODIUM BICARBONATE 8.4 % INJ 50ML VIAL IV ONE (02:16)
[2020-04-15] MEDS: SODIUM CHLORIDE 0.9% 1,000 ML IV SCH ×2 (03:30→13:42)
[2020-04-15 05:42] LABS: BUN/Creatinine Ratio 63.2; Calcium 8.3 mg/dL (8.5-10.1); Potassium 4.4 mmol/L (3.5-5.1)
[2020-04-15] MEDS: MEROPENEM 1GM IVPB 100 ML IV SCH ×3 (06:00→22:00)
[2020-04-15] MEDS: ACETYLCYSTEINE 20%(200MG/ML) SOL 4ML NEB SCH ×3 (06:00→18:33)
[2020-04-15] MEDS: ACCU-CHEK COMFORT CURVE STRIP VI SCH ×4 (06:00→18:00)
[2020-04-15] MEDS: InsuLIN REG 1unit/0.01ml Soln (100units/ml) SC SCH ×4 (06:00→18:00)
[2020-04-15] MEDS: MIDAZOLAM DRIP 50 mg/50mL 50 ML IV SCH (06:00)
[2020-04-15] MEDS: NOREPINEPHRINE 8 MG/250ML KIT 250 ML IV SCH (06:15)
[2020-04-15] MEDS: ALBUTEROL SULF 2.5 MG/0.5ML(0.5%) NEB SOLN NEB PRN ×3 (07:14→18:33)
[2020-04-15] MEDS: BUDESONIDE (INHALATION) 0.5 MG/2 ML NEB NEB SCH ×2 (07:14→18:33)
[2020-04-15] MEDS: FLUCONAZOLE 200MG/100ML 100 ML IV SCH (09:15)
[2020-04-15] MEDS: ZINC SULFATE 220mg CAP or TAB PO SCH (09:15)
[2020-04-15] MEDS: CHOLECALCIFEROL (VITD3) 2,000 UNIT CAP/TAB PO SCH (09:15)
[2020-04-15] MEDS: ASCORBIC ACID 1,000 MG TAB PO SCH (09:15)
[2020-04-15] MEDS: SODIUM CHLOR 0.9% PF (SALINE LOCK) 10ML VIAL/SYR IV SCH ×2 (09:15→22:00)
[2020-04-15] MEDS: FAMOTIDINE (10MG/ML) 2ML VL IV SCH ×2 (09:16→22:00)
[2020-04-15] MEDS: PROPOFOL 100 ML IV SCH ×2 (09:16→13:48)
[2020-04-15] MEDS: fentaNYL Drip 2500mCg/250mlNS 250 ML IV SCH ×2 (10:30)
[2020-04-15] MEDS: Jevity 1.2 Cal/Fiber 1 Liter GT SCH (13:46)
[2020-04-15] MEDS: DexAMETHasone SOD PHOS 10MG/1ML VIAL INJ IV SCH (19:00)
[2020-04-16] VITALS (68 sets, daily range): BP systolic 87–148; BP diastolic 50–82
[2020-04-16] MEDS: InsuLIN REG 1unit/0.01ml Soln (100units/ml) SC SCH ×4 (06:00→17:46)
[2020-04-16] MEDS: SODIUM CHLORIDE 0.9% 1,000 ML IV SCH ×3 (06:00→19:49)
[2020-04-16] MEDS: MEROPENEM 1GM IVPB 100 ML IV SCH ×3 (06:11→22:00)
[2020-04-16] MEDS: ACCU-CHEK COMFORT CURVE STRIP VI SCH ×5 (06:11→23:36)
[2020-04-16] MEDS: NOREPINEPHRINE 8 MG/250ML KIT 250 ML IV SCH (06:15)
[2020-04-16] MEDS: BUDESONIDE (INHALATION) 0.5 MG/2 ML NEB NEB SCH ×2 (06:16→18:56)
[2020-04-16] MEDS: ACETYLCYSTEINE 20%(200MG/ML) SOL 4ML NEB SCH ×2 (06:16→18:56)
[2020-04-16] MEDS: ALBUTEROL SULF 2.5 MG/0.5ML(0.5%) NEB SOLN NEB PRN ×2 (06:16→18:57)
[2020-04-16 07:56] LABS: Basophils # (auto) 0.1 10 ^3/uL (0-0.2); Basophils % (auto) 1.1 % (0.0-2.0); Eosinophils # (auto) 0.4 10 ^3/uL (0-0.8); Eosinophils % (auto) 4.2 % (0.0-7.0); Hematocrit 32.4 % (41.0-53.0); Lymphocytes # (auto) 0.7 10 ^3/uL (0.4-5.4); Lymphocytes % (auto) 6.9 % (10.0-50.0); Mean Corpuscular Hemoglobin 31.4 pg (28.0-32.0); Mean Corpuscular Volume 92.2 fL (80.0-100.0); Monocytes # (auto) 0.7 10 ^3/uL (0-1.3); Monocytes % (auto) 7.1 % (0.0-12.0); Neutrophils # (auto) 7.7 10 ^3/uL (1.6-8.6); Neutrophils % (auto) 80.7 % (37.0-80.0); Nucleated Red Blood Cells % 0.3 %; Platelet Count (auto) 334 10^3/uL (140-450); Red Blood Cells 3.51 10^6/uL (4.5-5.90); Red Cell Distribution Width 14.8 % (11.8-14.3); White Blood Cell 9.6 10^3/uL (4.4-10.8)
[2020-04-16] MEDS: MIDAZOLAM DRIP 50 mg/50mL 50 ML IV SCH ×2 (08:00→13:00)
[2020-04-16] MEDS: FAMOTIDINE (10MG/ML) 2ML VL IV SCH ×2 (08:13→22:00)
[2020-04-16] MEDS: CHOLECALCIFEROL (VITD3) 2,000 UNIT CAP/TAB PO SCH (08:13)
[2020-04-16] MEDS: DexAMETHasone SOD PHOS 10MG/1ML VIAL INJ IV SCH (08:13)
[2020-04-16] MEDS: SODIUM CHLOR 0.9% PF (SALINE LOCK) 10ML VIAL/SYR IV SCH ×2 (08:13→22:00)
[2020-04-16] MEDS: FLUCONAZOLE 200MG/100ML 100 ML IV SCH (08:13)
[2020-04-16] MEDS: ZINC SULFATE 220mg CAP or TAB PO SCH (08:13)
[2020-04-16] MEDS: ASCORBIC ACID 1,000 MG TAB PO SCH (08:13)
[2020-04-16 08:35] LABS: BUN/Creatinine Ratio 45.9; Calcium 7.6 mg/dL (8.5-10.1); Magnesium 2.1 mg/dL (1.6-2.6)
[2020-04-16] MEDS: fentaNYL Drip 2500mCg/250mlNS 250 ML IV SCH ×2 (10:12→12:00)
[2020-04-16] MEDS: ACETAMINOPHEN 650 mg PER 20.3 mL UD GT PRN (10:30)
[2020-04-16] MEDS ORDERED: ROCURONIUM 10MG/ML 10ML VIAL IV PRN (12:15)
[2020-04-16] MEDS: PROPOFOL 100 ML IV SCH (13:00)
[2020-04-17] VITALS (81 sets, daily range): BP systolic 93–158; BP diastolic 0–92
[2020-04-17 05:01] LABS: Basophils # (auto) 0.1 10 ^3/uL (0-0.2); Eosinophils # (auto) 0 10 ^3/uL (0-0.8); Eosinophils % (auto) 0.2 % (0.0-7.0); Hematocrit 30.8 % (41.0-53.0); Hemoglobin 10.7 g/dL (13.5-17.5); Lymphocytes # (auto) 0.5 10 ^3/uL (0.4-5.4); Lymphocytes % (auto) 5.2 % (10.0-50.0); Mean Corpuscular Hemoglobin 31.9 pg (28.0-32.0); Mean Corpuscular Hgb Conc. 34.6 g/dL (32.0-36.0); Monocytes # (auto) 0.7 10 ^3/uL (0-1.3); Monocytes % (auto) 6.5 % (0.0-12.0); Neutrophils # (auto) 8.9 10 ^3/uL (1.6-8.6); Neutrophils % (auto) 87.1 % (37.0-80.0); Platelet Count (auto) 333 10^3/uL (140-450); Red Blood Cells 3.35 10^6/uL (4.5-5.90); Red Cell Distribution Width 15.1 % (11.8-14.3); White Blood Cell 10.2 10^3/uL (4.4-10.8)
[2020-04-17 05:32] LABS: Albumin 1.5 g/dL (3.4-5.0); Calcium 7.6 mg/dL (8.5-10.1); Magnesium 1.9 mg/dL (1.6-2.6); Potassium 4.3 mmol/L (3.5-5.1)
[2020-04-17 05:35] LABS: BUN/Creatinine Ratio 43.2
[2020-04-17 05:37] LABS: Bilirubin, Total 2.9 mg/dL (0.2-1.0); Total Protein 5.2 g/dL (6.4-8.2)
[2020-04-17] MEDS: InsuLIN REG 1unit/0.01ml Soln (100units/ml) SC SCH ×4 (06:00→18:30)
[2020-04-17] MEDS: NOREPINEPHRINE 8 MG/250ML KIT 250 ML IV SCH (06:15)
[2020-04-17] MEDS: ACCU-CHEK COMFORT CURVE STRIP VI SCH ×3 (06:22→18:00)
[2020-04-17] MEDS: MEROPENEM 1GM IVPB 100 ML IV SCH ×3 (06:22→22:00)
[2020-04-17] MEDS: ALBUTEROL SULF 2.5 MG/0.5ML(0.5%) NEB SOLN NEB PRN ×3 (07:10→22:00)
[2020-04-17] MEDS: ACETYLCYSTEINE 20%(200MG/ML) SOL 4ML NEB SCH ×3 (07:10→21:59)
[2020-04-17] MEDS: BUDESONIDE (INHALATION) 0.5 MG/2 ML NEB NEB SCH ×2 (07:10→21:59)
[2020-04-17] MEDS: DexAMETHasone SOD PHOS 10MG/1ML VIAL INJ IV SCH (09:38)
[2020-04-17] MEDS: ZINC SULFATE 220mg CAP or TAB PO SCH (09:39)
[2020-04-17] MEDS: FLUCONAZOLE 200MG/100ML 100 ML IV SCH (09:39)
[2020-04-17] MEDS: FAMOTIDINE (10MG/ML) 2ML VL IV SCH ×2 (09:39→22:00)
[2020-04-17] MEDS: SODIUM CHLOR 0.9% PF (SALINE LOCK) 10ML VIAL/SYR IV SCH ×2 (09:39→22:00)
[2020-04-17] MEDS: ASCORBIC ACID 1,000 MG TAB PO SCH (09:40)
[2020-04-17] MEDS: CHOLECALCIFEROL (VITD3) 2,000 UNIT CAP/TAB PO SCH (09:40)
[2020-04-17] MEDS: MIDAZOLAM DRIP 50 mg/50mL 50 ML IV SCH ×3 (10:59→22:46)
[2020-04-17] MEDS: ROCURONIUM BROMIDE 1,000 MG in D5W 5% 150 ML IV SCH (13:58)
[2020-04-17] MEDS: SODIUM CHLORIDE 0.9% 1,000 ML IV SCH (15:30)
[2020-04-18] VITALS (98 sets, daily range): BP systolic 99–198; BP diastolic 65–129
[2020-04-18] MEDS: SODIUM CHLORIDE 0.9% 1,000 ML IV SCH (01:30)
[2020-04-18] MEDS: PROPOFOL 100 ML IV SCH (05:23)
[2020-04-18] MEDS: ACCU-CHEK COMFORT CURVE STRIP VI SCH ×4 (05:24→18:16)
[2020-04-18] MEDS: NOREPINEPHRINE 8 MG/250ML KIT 250 ML IV SCH (05:24)
[2020-04-18] MEDS: InsuLIN REG 1unit/0.01ml Soln (100units/ml) SC SCH ×4 (05:24→18:16)
[2020-04-18] MEDS: Jevity 1.2 Cal/Fiber 1 Liter GT SCH (05:29)
[2020-04-18] MEDS: MEROPENEM 1GM IVPB 100 ML IV SCH ×3 (05:29→22:59)
[2020-04-18] MEDS: MIDAZOLAM DRIP 50 mg/50mL 50 ML IV SCH ×3 (05:30→13:45)
[2020-04-18] MEDS: ACETYLCYSTEINE 20%(200MG/ML) SOL 4ML NEB SCH ×3 (06:00→22:00)
[2020-04-18] MEDS: fentaNYL Drip 2500mCg/250mlNS 250 ML IV SCH ×2 (07:00→15:26)
[2020-04-18] MEDS: BUDESONIDE (INHALATION) 0.5 MG/2 ML NEB NEB SCH ×2 (07:11→22:00)
[2020-04-18] MEDS: ALBUTEROL SULF 2.5 MG/0.5ML(0.5%) NEB SOLN NEB PRN ×2 (07:11→14:49)
[2020-04-18] MEDS: DexAMETHasone SOD PHOS 10MG/1ML VIAL INJ IV SCH (09:58)
[2020-04-18] MEDS: FLUCONAZOLE 200MG/100ML 100 ML IV SCH (09:58)
[2020-04-18] MEDS: FAMOTIDINE (10MG/ML) 2ML VL IV SCH ×2 (09:58→22:59)
[2020-04-18] MEDS: ASCORBIC ACID 1,000 MG TAB PO SCH (09:59)
[2020-04-18] MEDS: ZINC SULFATE 220mg CAP or TAB PO SCH (09:59)
[2020-04-18] MEDS: CHOLECALCIFEROL (VITD3) 2,000 UNIT CAP/TAB PO SCH (09:59)
[2020-04-18] MEDS: SODIUM CHLOR 0.9% PF (SALINE LOCK) 10ML VIAL/SYR IV SCH ×2 (09:59→23:00)
[2020-04-18] MEDS: ROCURONIUM BROMIDE 1,000 MG in D5W 5% 150 ML IV SCH (13:46)
[2020-04-18] MEDS: NITROGLYCERIN 50MG/250ML 250 ML IV SCH (13:47)
[2020-04-19] VITALS (98 sets, daily range): BP systolic 86–152; BP diastolic 51–104
[2020-04-19] MEDS: ALBUTEROL SULF 2.5 MG/0.5ML(0.5%) NEB SOLN NEB PRN ×4 (00:20→22:21)
[2020-04-19] MEDS: SODIUM CHLORIDE 0.9% 1,000 ML IV SCH ×2 (00:30→11:08)
[2020-04-19] MEDS: fentaNYL Drip 2500mCg/250mlNS 250 ML IV SCH ×2 (00:40→07:40)
[2020-04-19 05:16] LABS: Basophils # (auto) 0 10 ^3/uL (0-0.2); Basophils % (auto) 0.3 % (0.0-2.0); Eosinophils # (auto) 0 10 ^3/uL (0-0.8); Eosinophils % (auto) 0.4 % (0.0-7.0); Hematocrit 30.4 % (41.0-53.0); Hemoglobin 10.4 g/dL (13.5-17.5); Lymphocytes # (auto) 0.7 10 ^3/uL (0.4-5.4); Lymphocytes % (auto) 7.9 % (10.0-50.0); Mean Corpuscular Hemoglobin 31.5 pg (28.0-32.0); Mean Corpuscular Hgb Conc. 34.3 g/dL (32.0-36.0); Mean Corpuscular Volume 91.9 fL (80.0-100.0); Monocytes # (auto) 0.7 10 ^3/uL (0-1.3); Monocytes % (auto) 8.4 % (0.0-12.0); Neutrophils # (auto) 7.3 10 ^3/uL (1.6-8.6); Nucleated Red Blood Cells % 0.1 %; Platelet Count (auto) 267 10^3/uL (140-450); Red Blood Cells 3.31 10^6/uL (4.5-5.90); Red Cell Distribution Width 14.8 % (11.8-14.3); White Blood Cell 8.8 10^3/uL (4.4-10.8)
[2020-04-19 05:23] LABS: Albumin 1.4 g/dL (3.4-5.0); Calcium 7.6 mg/dL (8.5-10.1); Potassium 4.1 mmol/L (3.5-5.1)
[2020-04-19 05:27] LABS: Bilirubin, Total 1.2 mg/dL (0.2-1.0); Total Protein 5.1 g/dL (6.4-8.2)
[2020-04-19] MEDS: InsuLIN REG 1unit/0.01ml Soln (100units/ml) SC SCH ×4 (06:00→18:37)
[2020-04-19] MEDS: ACCU-CHEK COMFORT CURVE STRIP VI SCH ×4 (06:00→18:00)
[2020-04-19] MEDS: MEROPENEM 1GM IVPB 100 ML IV SCH ×3 (06:00→22:44)
[2020-04-19] MEDS: PROPOFOL 100 ML IV SCH (06:00)
[2020-04-19] MEDS: BUDESONIDE (INHALATION) 0.5 MG/2 ML NEB NEB SCH ×2 (06:10→22:21)
[2020-04-19] MEDS: ACETYLCYSTEINE 20%(200MG/ML) SOL 4ML NEB SCH ×3 (06:10→22:21)
[2020-04-19] MEDS: NOREPINEPHRINE 8 MG/250ML KIT 250 ML IV SCH (06:15)
[2020-04-19] MEDS: MIDAZOLAM DRIP 50 mg/50mL 50 ML IV SCH ×4 (06:22→13:24)
[2020-04-19] MEDS: CHOLECALCIFEROL (VITD3) 2,000 UNIT CAP/TAB PO SCH (10:00)
[2020-04-19] MEDS: DexAMETHasone SOD PHOS 10MG/1ML VIAL INJ IV SCH (10:01)
[2020-04-19] MEDS: FAMOTIDINE (10MG/ML) 2ML VL IV SCH ×2 (10:02→22:44)
[2020-04-19] MEDS: ZINC SULFATE 220mg CAP or TAB PO SCH (10:02)
[2020-04-19] MEDS: SODIUM CHLOR 0.9% PF (SALINE LOCK) 10ML VIAL/SYR IV SCH ×2 (10:02→22:45)
[2020-04-19] MEDS: FLUCONAZOLE 200MG/100ML 100 ML IV SCH (10:02)
[2020-04-19] MEDS: ASCORBIC ACID 1,000 MG TAB PO SCH (10:03)
[2020-04-19] MEDS: NITROGLYCERIN 50MG/250ML 250 ML IV SCH (12:30)
[2020-04-19] MEDS: ROCURONIUM BROMIDE 1,000 MG in D5W 5% 150 ML IV SCH (17:18)
[2020-04-20] VITALS (99 sets, daily range): BP systolic 93–169; BP diastolic 60–120
[2020-04-20] MEDS: MIDAZOLAM DRIP 50 mg/50mL 50 ML IV SCH ×4 (00:10→21:00)
[2020-04-20] MEDS: fentaNYL Drip 2500mCg/250mlNS 250 ML IV SCH (00:53)
[2020-04-20] MEDS: SODIUM CHLORIDE 0.9% 1,000 ML IV SCH ×3 (04:30→19:10)
[2020-04-20 04:37] LABS: Basophils # (auto) 0 10 ^3/uL (0-0.2); Basophils % (auto) 0.1 % (0.0-2.0); Eosinophils # (auto) 0 10 ^3/uL (0-0.8); Hematocrit 35.9 % (41.0-53.0); Hemoglobin 12.2 g/dL (13.5-17.5); Lymphocytes # (auto) 0.6 10 ^3/uL (0.4-5.4); Lymphocytes % (auto) 5.3 % (10.0-50.0); Mean Corpuscular Hemoglobin 31.3 pg (28.0-32.0); Mean Corpuscular Hgb Conc. 33.9 g/dL (32.0-36.0); Mean Corpuscular Volume 92.4 fL (80.0-100.0); Monocytes # (auto) 0.8 10 ^3/uL (0-1.3); Neutrophils # (auto) 9.5 10 ^3/uL (1.6-8.6); Neutrophils % (auto) 87.6 % (37.0-80.0); Platelet Count (auto) 311 10^3/uL (140-450); Red Blood Cells 3.88 10^6/uL (4.5-5.90); White Blood Cell 10.9 10^3/uL (4.4-10.8)
[2020-04-20 04:47] LABS: Albumin 1.7 g/dL (3.4-5.0); Calcium 7.9 mg/dL (8.5-10.1)
[2020-04-20 04:50] LABS: BUN/Creatinine Ratio 51.5; Bilirubin, Total 1.1 mg/dL (0.2-1.0); Total Protein 6.1 g/dL (6.4-8.2)
[2020-04-20] MEDS: ACCU-CHEK COMFORT CURVE STRIP VI SCH ×4 (06:00→18:00)
[2020-04-20] MEDS: MEROPENEM 1GM IVPB 100 ML IV SCH ×3 (06:00→22:24)
[2020-04-20] MEDS: InsuLIN REG 1unit/0.01ml Soln (100units/ml) SC SCH ×4 (06:00→18:00)
[2020-04-20] MEDS: PROPOFOL 100 ML IV SCH (06:00)
[2020-04-20] MEDS: NOREPINEPHRINE 8 MG/250ML KIT 250 ML IV SCH (06:15)
[2020-04-20] MEDS: BUDESONIDE (INHALATION) 0.5 MG/2 ML NEB NEB SCH ×2 (06:30→18:17)
[2020-04-20] MEDS: ALBUTEROL SULF 2.5 MG/0.5ML(0.5%) NEB SOLN NEB PRN ×3 (06:30→22:28)
[2020-04-20] MEDS: ACETYLCYSTEINE 20%(200MG/ML) SOL 4ML NEB SCH ×3 (06:30→22:28)
[2020-04-20] MEDS: ASCORBIC ACID 1,000 MG TAB PO SCH (10:30)
[2020-04-20] MEDS: CHOLECALCIFEROL (VITD3) 2,000 UNIT CAP/TAB PO SCH (10:30)
[2020-04-20] MEDS: SODIUM CHLOR 0.9% PF (SALINE LOCK) 10ML VIAL/SYR IV SCH ×2 (10:30→22:24)
[2020-04-20] MEDS: FAMOTIDINE (10MG/ML) 2ML VL IV SCH ×2 (10:30→22:24)
[2020-04-20] MEDS: DexAMETHasone SOD PHOS 10MG/1ML VIAL INJ IV SCH (10:30)
[2020-04-20] MEDS: ZINC SULFATE 220mg CAP or TAB PO SCH (10:30)
[2020-04-20] MEDS: FLUCONAZOLE 200MG/100ML 100 ML IV SCH (10:30)
[2020-04-20] MEDS: ROCURONIUM BROMIDE 1,000 MG in D5W 5% 150 ML IV SCH (11:30)
[2020-04-20] MEDS: NITROGLYCERIN 50MG/250ML 250 ML IV SCH (12:30)
[2020-04-21] VITALS (99 sets, daily range): BP systolic 92–180; BP diastolic 60–110
[2020-04-21] MEDS: MIDAZOLAM DRIP 50 mg/50mL 50 ML IV SCH ×5 (01:00→21:45)
[2020-04-21] MEDS: PROPOFOL 100 ML IV SCH (06:00)
[2020-04-21] MEDS: InsuLIN REG 1unit/0.01ml Soln (100units/ml) SC SCH ×4 (06:00→18:14)
[2020-04-21] MEDS: MEROPENEM 1GM IVPB 100 ML IV SCH ×3 (06:05→21:42)
[2020-04-21] MEDS: ACCU-CHEK COMFORT CURVE STRIP VI SCH ×4 (06:06→17:48)
[2020-04-21] MEDS: NOREPINEPHRINE 8 MG/250ML KIT 250 ML IV SCH (06:06)
[2020-04-21] MEDS: SODIUM CHLORIDE 0.9% 1,000 ML IV SCH (06:07)
[2020-04-21] MEDS: fentaNYL Drip 2500mCg/250mlNS 250 ML IV SCH ×4 (06:09→21:44)
[2020-04-21] MEDS: BUDESONIDE (INHALATION) 0.5 MG/2 ML NEB NEB SCH ×2 (06:50→20:39)
[2020-04-21] MEDS: ACETYLCYSTEINE 20%(200MG/ML) SOL 4ML NEB SCH ×2 (06:50→20:39)
[2020-04-21] MEDS: ALBUTEROL SULF 2.5 MG/0.5ML(0.5%) NEB SOLN NEB PRN ×2 (06:50→20:39)
[2020-04-21] MEDS: LORazepam 2MG/ML-1ML VIAL IV PRN (09:00)
[2020-04-21] MEDS: ZINC SULFATE 220mg CAP or TAB PO SCH (10:00)
[2020-04-21] MEDS: CHOLECALCIFEROL (VITD3) 2,000 UNIT CAP/TAB PO SCH (10:00)
[2020-04-21] MEDS: ASCORBIC ACID 1,000 MG TAB PO SCH (10:00)
[2020-04-21] MEDS: FAMOTIDINE (10MG/ML) 2ML VL IV SCH ×2 (10:00→21:42)
[2020-04-21] MEDS: SODIUM CHLOR 0.9% PF (SALINE LOCK) 10ML VIAL/SYR IV SCH ×2 (10:00→21:42)
[2020-04-21] MEDS: FLUCONAZOLE 200MG/100ML 100 ML IV SCH (10:03)
[2020-04-21] MEDS: DexAMETHasone SOD PHOS 10MG/1ML VIAL INJ IV SCH (10:30)
[2020-04-21] MEDS: ROCURONIUM BROMIDE 1,000 MG in D5W 5% 150 ML IV SCH (11:30)
[2020-04-21] MEDS: ROCURONIUM 10MG/ML 10ML VIAL IV PRN (11:45)
[2020-04-21] MEDS: NITROGLYCERIN 50MG/250ML 250 ML IV SCH (12:30)
[2020-04-22] VITALS (99 sets, daily range): BP systolic 83–194; BP diastolic 49–117
[2020-04-22] MEDS: MIDAZOLAM DRIP 50 mg/50mL 50 ML IV SCH ×6 (02:00→20:00)
[2020-04-22 04:46] LABS: Basophils # (auto) 0 10 ^3/uL (0-0.2); Basophils % (auto) 0.2 % (0.0-2.0); Eosinophils # (auto) 0 10 ^3/uL (0-0.8); Hematocrit 31.9 % (41.0-53.0); Hemoglobin 10.8 g/dL (13.5-17.5); Lymphocytes # (auto) 0.4 10 ^3/uL (0.4-5.4); Lymphocytes % (auto) 4.1 % (10.0-50.0); Mean Corpuscular Hemoglobin 31.4 pg (28.0-32.0); Mean Corpuscular Hgb Conc. 33.8 g/dL (32.0-36.0); Monocytes # (auto) 0.6 10 ^3/uL (0-1.3); Monocytes % (auto) 5.8 % (0.0-12.0); Neutrophils # (auto) 8.7 10 ^3/uL (1.6-8.6); Neutrophils % (auto) 89.9 % (37.0-80.0); Platelet Count (auto) 228 10^3/uL (140-450); Red Blood Cells 3.43 10^6/uL (4.5-5.90); White Blood Cell 9.6 10^3/uL (4.4-10.8)
[2020-04-22] MEDS: SODIUM CHLORIDE 0.9% 1,000 ML IV SCH ×2 (04:50→11:10)
[2020-04-22] MEDS: ROCURONIUM 10MG/ML 10ML VIAL IV PRN (04:58)
[2020-04-22] MEDS: fentaNYL Drip 2500mCg/250mlNS 250 ML IV SCH ×3 (04:59→20:00)
[2020-04-22 05:04] LABS: BUN/Creatinine Ratio 82.4; Calcium 7.8 mg/dL (8.5-10.1); Potassium 4.3 mmol/L (3.5-5.1)
[2020-04-22] MEDS: PROPOFOL 100 ML IV SCH ×4 (06:00→14:52)
[2020-04-22] MEDS: InsuLIN REG 1unit/0.01ml Soln (100units/ml) SC SCH ×4 (06:00→18:00)
[2020-04-22] MEDS: NOREPINEPHRINE 8 MG/250ML KIT 250 ML IV SCH (06:15)
[2020-04-22] MEDS: MEROPENEM 1GM IVPB 100 ML IV SCH (06:25)
[2020-04-22] MEDS: ACCU-CHEK COMFORT CURVE STRIP VI SCH ×4 (06:27→18:00)
[2020-04-22] MEDS: ACETYLCYSTEINE 20%(200MG/ML) SOL 4ML NEB SCH ×3 (06:30→21:16)
[2020-04-22] MEDS: ALBUTEROL SULF 2.5 MG/0.5ML(0.5%) NEB SOLN NEB PRN ×3 (06:30→21:16)
[2020-04-22] MEDS: BUDESONIDE (INHALATION) 0.5 MG/2 ML NEB NEB SCH ×2 (06:30→21:16)
[2020-04-22] MEDS: ASCORBIC ACID 1,000 MG TAB PO SCH (10:00)
[2020-04-22] MEDS: FLUCONAZOLE 200MG/100ML 100 ML IV SCH (10:00)
[2020-04-22] MEDS: ZINC SULFATE 220mg CAP or TAB PO SCH (10:00)
[2020-04-22] MEDS: ENOXAPARIN SOD 40 MG/0.4 ML SYRINGE SC SCH (10:00)
[2020-04-22] MEDS: FAMOTIDINE (10MG/ML) 2ML VL IV SCH ×2 (10:00→22:00)
[2020-04-22] MEDS: DexAMETHasone SOD PHOS 10MG/1ML VIAL INJ IV SCH (10:00)
[2020-04-22] MEDS: CHOLECALCIFEROL (VITD3) 2,000 UNIT CAP/TAB PO SCH (10:00)
[2020-04-22] MEDS: SODIUM CHLOR 0.9% PF (SALINE LOCK) 10ML VIAL/SYR IV SCH ×2 (10:00→22:00)
[2020-04-22] MEDS: ROCURONIUM BROMIDE 1,000 MG in D5W 5% 150 ML IV SCH (11:30)
[2020-04-22] MEDS ORDERED: FUROSEMIDE 40 MG/4 ML VIAL IV ONE (12:00)
[2020-04-22] MEDS: NITROGLYCERIN 50MG/250ML 250 ML IV SCH (12:30)
[2020-04-22] MEDS ORDERED: BUMETANIDE 2.5mg/10ml (0.25 mg/ml) INJ IV ONE (14:15)
[2020-04-23] VITALS (98 sets, daily range): BP systolic 82–129; BP diastolic 50–85
[2020-04-23] MEDS: SODIUM CHLORIDE 0.9% 1,000 ML IV SCH ×3 (00:30→21:00)
[2020-04-23] MEDS: MIDAZOLAM DRIP 50 mg/50mL 50 ML IV SCH ×7 (04:00→22:30)
[2020-04-23] MEDS: PROPOFOL 100 ML IV SCH (04:00)
[2020-04-23] MEDS: fentaNYL Drip 2500mCg/250mlNS 250 ML IV SCH ×2 (04:00→12:20)
[2020-04-23] MEDS: InsuLIN REG 1unit/0.01ml Soln (100units/ml) SC SCH ×4 (06:00→18:00)
[2020-04-23] MEDS: ACCU-CHEK COMFORT CURVE STRIP VI SCH ×4 (06:03→18:00)
[2020-04-23 06:13] LABS: Albumin 1.4 g/dL (3.4-5.0); BUN/Creatinine Ratio 60.7; Bilirubin, Total 0.8 mg/dL (0.2-1.0); Calcium 7.9 mg/dL (8.5-10.1); Total Protein 4.6 g/dL (6.4-8.2)
[2020-04-23] MEDS: NOREPINEPHRINE 8 MG/250ML KIT 250 ML IV SCH (06:15)
[2020-04-23] MEDS: ACETYLCYSTEINE 20%(200MG/ML) SOL 4ML NEB SCH ×3 (06:20→19:11)
[2020-04-23] MEDS: BUDESONIDE (INHALATION) 0.5 MG/2 ML NEB NEB SCH ×2 (06:20→19:11)
[2020-04-23 06:30] LABS: Potassium 4.1 mmol/L (3.5-5.1)
[2020-04-23] MEDS: ALBUTEROL SULF 2.5 MG/0.5ML(0.5%) NEB SOLN NEB PRN ×2 (07:20→19:11)
[2020-04-23] MEDS: ACETAMINOPHEN 650 mg PER 20.3 mL UD GT PRN (09:00)
[2020-04-23] MEDS: DexAMETHasone SOD PHOS 10MG/1ML VIAL INJ IV SCH (09:57)
[2020-04-23] MEDS: FAMOTIDINE (10MG/ML) 2ML VL IV SCH ×2 (09:59→22:00)
[2020-04-23] MEDS: FLUCONAZOLE 200MG/100ML 100 ML IV SCH (09:59)
[2020-04-23] MEDS: ZINC SULFATE 220mg CAP or TAB PO SCH (10:00)
[2020-04-23] MEDS: SODIUM CHLOR 0.9% PF (SALINE LOCK) 10ML VIAL/SYR IV SCH ×2 (10:00→22:00)
[2020-04-23] MEDS ORDERED: IVERMECTIN NG SCH (10:00)
[2020-04-23] MEDS ORDERED: acetaZOLAMIDE SODIUM 500 MG VL IV SCH (10:00)
[2020-04-23] MEDS: ASCORBIC ACID 1,000 MG TAB PO SCH (10:00)
[2020-04-23] MEDS: acetaZOLAMIDE 250 MG TAB PO SCH (10:00)
[2020-04-23] MEDS: IVERMECTIN 3 MG TAB PO SCH (10:00)
[2020-04-23] MEDS: CHOLECALCIFEROL (VITD3) 2,000 UNIT CAP/TAB PO SCH (10:00)
[2020-04-23] MEDS: ENOXAPARIN SOD 40 MG/0.4 ML SYRINGE SC SCH (10:00)
[2020-04-23] MEDS ORDERED: FUROSEMIDE 40 MG/4 ML VIAL IV SCH (10:00)
[2020-04-23] MEDS: ROCURONIUM BROMIDE 1,000 MG in D5W 5% 150 ML IV SCH (11:30)
[2020-04-23] MEDS: NITROGLYCERIN 50MG/250ML 250 ML IV SCH (12:30)
[2020-04-23] MEDS ORDERED: BUMETANIDE 2.5mg/10ml (0.25 mg/ml) INJ IV ONE ×2 (17:00→18:30)
[2020-04-23] MEDS: Jevity 1.2 Cal/Fiber 1 Liter GT SCH (22:00)
[2020-04-24] VITALS (94 sets, daily range): BP systolic 88–147; BP diastolic 55–93
[2020-04-24] MEDS: ACCU-CHEK COMFORT CURVE STRIP VI SCH ×4 (00:52→18:18)
[2020-04-24] MEDS: InsuLIN REG 1unit/0.01ml Soln (100units/ml) SC SCH ×5 (00:53→18:18)
[2020-04-24] MEDS: PROPOFOL 100 ML IV SCH ×3 (06:00→20:00)
[2020-04-24] MEDS: ALBUTEROL SULF 2.5 MG/0.5ML(0.5%) NEB SOLN NEB PRN ×2 (06:15→22:18)
[2020-04-24] MEDS: NOREPINEPHRINE 8 MG/250ML KIT 250 ML IV SCH (06:15)
[2020-04-24] MEDS: BUDESONIDE (INHALATION) 0.5 MG/2 ML NEB NEB SCH ×2 (06:15→22:17)
[2020-04-24] MEDS: ACETYLCYSTEINE 20%(200MG/ML) SOL 4ML NEB SCH ×3 (06:15→22:17)
[2020-04-24] MEDS: FAMOTIDINE (10MG/ML) 2ML VL IV SCH ×2 (10:22→22:00)
[2020-04-24] MEDS: DexAMETHasone SOD PHOS 10MG/1ML VIAL INJ IV SCH (10:22)
[2020-04-24] MEDS: SODIUM CHLOR 0.9% PF (SALINE LOCK) 10ML VIAL/SYR IV SCH ×2 (10:22→22:00)
[2020-04-24] MEDS: FLUCONAZOLE 200MG/100ML 100 ML IV SCH (10:22)
[2020-04-24] MEDS: ZINC SULFATE 220mg CAP or TAB PO SCH (10:22)
[2020-04-24] MEDS: CHOLECALCIFEROL (VITD3) 2,000 UNIT CAP/TAB PO SCH (10:23)
[2020-04-24] MEDS: ENOXAPARIN SOD 40 MG/0.4 ML SYRINGE SC SCH (10:23)
[2020-04-24] MEDS: ASCORBIC ACID 1,000 MG TAB PO SCH (10:23)
[2020-04-24] MEDS: acetaZOLAMIDE 250 MG TAB PO SCH (10:23)
[2020-04-24] MEDS: IVERMECTIN 3 MG TAB PO SCH (10:23)
[2020-04-24] MEDS: fentaNYL Drip 2500mCg/250mlNS 250 ML IV SCH ×2 (10:30→20:00)
[2020-04-24] MEDS: ROCURONIUM BROMIDE 1,000 MG in D5W 5% 150 ML IV SCH (11:30)
[2020-04-24] MEDS: NITROGLYCERIN 50MG/250ML 250 ML IV SCH (12:30)
[2020-04-24] MEDS: SODIUM CHLORIDE 0.9% 1,000 ML IV SCH ×2 (16:30→23:00)
[2020-04-24] MEDS: MIDAZOLAM DRIP 50 mg/50mL 50 ML IV SCH (21:00)
[2020-04-24] MEDS: Jevity 1.2 Cal/Fiber 1 Liter GT SCH (22:00)
[2020-04-25] VITALS (102 sets, daily range): BP systolic 83–125; BP diastolic 40–76
[2020-04-25] MEDS: PROPOFOL 100 ML IV SCH ×4 (02:00→20:00)
[2020-04-25] MEDS: MIDAZOLAM DRIP 50 mg/50mL 50 ML IV SCH ×2 (02:00→20:00)
[2020-04-25] MEDS: ACCU-CHEK COMFORT CURVE STRIP VI SCH ×5 (06:00→23:35)
[2020-04-25] MEDS: InsuLIN REG 1unit/0.01ml Soln (100units/ml) SC SCH ×5 (06:00→23:35)
[2020-04-25] MEDS: SODIUM CHLORIDE 0.9% 1,000 ML IV SCH (06:00)
[2020-04-25 06:03] LABS: Basophils # (auto) 0 10 ^3/uL (0-0.2); Basophils % (auto) 0.3 % (0.0-2.0); Eosinophils # (auto) 0 10 ^3/uL (0-0.8); Eosinophils % (auto) 0.6 % (0.0-7.0); Hematocrit 28.1 % (41.0-53.0); Hemoglobin 9.7 g/dL (13.5-17.5); Lymphocytes # (auto) 0.3 10 ^3/uL (0.4-5.4); Lymphocytes % (auto) 3.6 % (10.0-50.0); Mean Corpuscular Hemoglobin 32.3 pg (28.0-32.0); Mean Corpuscular Hgb Conc. 34.5 g/dL (32.0-36.0); Mean Corpuscular Volume 93.8 fL (80.0-100.0); Monocytes # (auto) 0.5 10 ^3/uL (0-1.3); Monocytes % (auto) 5.5 % (0.0-12.0); Neutrophils # (auto) 7.5 10 ^3/uL (1.6-8.6); Platelet Count (auto) 184 10^3/uL (140-450); Red Blood Cells 2.99 10^6/uL (4.5-5.90); Red Cell Distribution Width 15.7 % (11.8-14.3); White Blood Cell 8.3 10^3/uL (4.4-10.8)
[2020-04-25] MEDS: NOREPINEPHRINE 8 MG/250ML KIT 250 ML IV SCH (06:15)
[2020-04-25] MEDS: BUDESONIDE (INHALATION) 0.5 MG/2 ML NEB NEB SCH ×2 (06:25→22:31)
[2020-04-25] MEDS: ALBUTEROL SULF 2.5 MG/0.5ML(0.5%) NEB SOLN NEB PRN ×3 (06:25→22:31)
[2020-04-25] MEDS: ACETYLCYSTEINE 20%(200MG/ML) SOL 4ML NEB SCH ×3 (06:25→22:30)
[2020-04-25 06:47] LABS: Potassium 3.8 mmol/L (3.5-5.1)
[2020-04-25 07:02] LABS: Albumin 1.5 g/dL (3.4-5.0); Bilirubin, Total 0.7 mg/dL (0.2-1.0); Calcium 7.6 mg/dL (8.5-10.1); Total Protein 4.7 g/dL (6.4-8.2)
[2020-04-25] MEDS: FAMOTIDINE (10MG/ML) 2ML VL IV SCH ×2 (10:10→22:14)
[2020-04-25] MEDS: acetaZOLAMIDE 250 MG TAB PO SCH (10:10)
[2020-04-25] MEDS: FLUCONAZOLE 200MG/100ML 100 ML IV SCH (10:10)
[2020-04-25] MEDS: SODIUM CHLOR 0.9% PF (SALINE LOCK) 10ML VIAL/SYR IV SCH ×2 (10:10→22:14)
[2020-04-25] MEDS: ZINC SULFATE 220mg CAP or TAB PO SCH (10:10)
[2020-04-25] MEDS: DexAMETHasone SOD PHOS 10MG/1ML VIAL INJ IV SCH (10:10)
[2020-04-25] MEDS: IVERMECTIN 3 MG TAB PO SCH (10:13)
[2020-04-25] MEDS: CHOLECALCIFEROL (VITD3) 2,000 UNIT CAP/TAB PO SCH (10:13)
[2020-04-25] MEDS: ASCORBIC ACID 1,000 MG TAB PO SCH (10:13)
[2020-04-25] MEDS: ENOXAPARIN SOD 40 MG/0.4 ML SYRINGE SC SCH (10:13)
[2020-04-25] MEDS: ROCURONIUM BROMIDE 1,000 MG in D5W 5% 150 ML IV SCH (11:30)
[2020-04-25] MEDS: NITROGLYCERIN 50MG/250ML 250 ML IV SCH (12:26)
[2020-04-25] MEDS: fentaNYL Drip 2500mCg/250mlNS 250 ML IV SCH (20:00)
[2020-04-25] MEDS: Jevity 1.2 Cal/Fiber 1 Liter GT SCH (22:00)
[2020-04-26] VITALS (102 sets, daily range): BP systolic 82–118; BP diastolic 42–69
[2020-04-26] MEDS: InsuLIN REG 1unit/0.01ml Soln (100units/ml) SC SCH ×3 (06:00→12:00)
[2020-04-26] MEDS: ACCU-CHEK COMFORT CURVE STRIP VI SCH ×3 (06:08→12:01)
[2020-04-26] MEDS: ALBUTEROL SULF 2.5 MG/0.5ML(0.5%) NEB SOLN NEB PRN ×3 (06:20→22:30)
[2020-04-26] MEDS: NOREPINEPHRINE 8 MG/250ML KIT 250 ML IV SCH (08:03)
[2020-04-26] MEDS: SODIUM CHLORIDE 0.9% 1,000 ML IV SCH ×2 (08:30→21:50)
[2020-04-26] MEDS: DexAMETHasone SOD PHOS 10MG/1ML VIAL INJ IV SCH (10:00)
[2020-04-26] MEDS: acetaZOLAMIDE 250 MG TAB PO SCH (10:00)
[2020-04-26] MEDS: SODIUM CHLOR 0.9% PF (SALINE LOCK) 10ML VIAL/SYR IV SCH ×2 (10:00→21:55)
[2020-04-26] MEDS: FAMOTIDINE (10MG/ML) 2ML VL IV SCH ×2 (10:00→21:55)
[2020-04-26] MEDS: CHOLECALCIFEROL (VITD3) 2,000 UNIT CAP/TAB PO SCH (10:00)
[2020-04-26] MEDS: IVERMECTIN 3 MG TAB PO SCH (10:00)
[2020-04-26] MEDS: ZINC SULFATE 220mg CAP or TAB PO SCH (10:00)
[2020-04-26] MEDS: ASCORBIC ACID 1,000 MG TAB PO SCH (10:00)
[2020-04-26] MEDS: ENOXAPARIN SOD 40 MG/0.4 ML SYRINGE SC SCH (10:00)
[2020-04-26] MEDS: BUDESONIDE (INHALATION) 0.5 MG/2 ML NEB NEB SCH ×2 (10:16→22:30)
[2020-04-26] MEDS: ACETYLCYSTEINE 20%(200MG/ML) SOL 4ML NEB SCH ×3 (10:16→22:30)
[2020-04-26] MEDS: FLUCONAZOLE 200MG/100ML 100 ML IV SCH (10:30)
[2020-04-26] MEDS: ROCURONIUM BROMIDE 1,000 MG in D5W 5% 150 ML IV SCH (10:47)
[2020-04-26] MEDS: NITROGLYCERIN 50MG/250ML 250 ML IV SCH (12:30)
[2020-04-26] MEDS: PROPOFOL 100 ML IV SCH (21:55)
[2020-04-26] MEDS: MIDAZOLAM DRIP 50 mg/50mL 50 ML IV SCH (21:56)
[2020-04-27] VITALS (96 sets, daily range): BP systolic 80–140; BP diastolic 43–97
[2020-04-27] MEDS: ACCU-CHEK COMFORT CURVE STRIP VI SCH ×4 (00:03→18:13)
[2020-04-27] MEDS: MIDAZOLAM DRIP 50 mg/50mL 50 ML IV SCH ×4 (02:28→17:13)
[2020-04-27] MEDS: PROPOFOL 100 ML IV SCH ×5 (03:15→20:50)
[2020-04-27] MEDS: InsuLIN REG 1unit/0.01ml Soln (100units/ml) SC SCH ×4 (06:00→18:14)
[2020-04-27] MEDS: NOREPINEPHRINE 8 MG/250ML KIT 250 ML IV SCH ×2 (06:15→18:28)
[2020-04-27] MEDS: ALBUTEROL SULF 2.5 MG/0.5ML(0.5%) NEB SOLN NEB PRN ×3 (06:50→23:23)
[2020-04-27] MEDS: ACETYLCYSTEINE 20%(200MG/ML) SOL 4ML NEB SCH ×3 (06:50→22:10)
[2020-04-27] MEDS: BUDESONIDE (INHALATION) 0.5 MG/2 ML NEB NEB SCH ×2 (07:00→22:10)
[2020-04-27] MEDS: CHOLECALCIFEROL (VITD3) 2,000 UNIT CAP/TAB PO SCH (10:00)
[2020-04-27] MEDS: fentaNYL Drip 2500mCg/250mlNS 250 ML IV SCH ×2 (10:30→17:13)
[2020-04-27] MEDS: FAMOTIDINE (10MG/ML) 2ML VL IV SCH ×2 (11:30→21:44)
[2020-04-27] MEDS: ROCURONIUM BROMIDE 1,000 MG in D5W 5% 150 ML IV SCH (11:30)
[2020-04-27] MEDS: FLUCONAZOLE 200MG/100ML 100 ML IV SCH (11:30)
[2020-04-27] MEDS: ZINC SULFATE 220mg CAP or TAB PO SCH (11:30)
[2020-04-27] MEDS: DexAMETHasone SOD PHOS 10MG/1ML VIAL INJ IV SCH (11:30)
[2020-04-27] MEDS: acetaZOLAMIDE 250 MG TAB PO SCH (11:30)
[2020-04-27] MEDS: SODIUM CHLOR 0.9% PF (SALINE LOCK) 10ML VIAL/SYR IV SCH ×2 (11:30→21:44)
[2020-04-27] MEDS: ENOXAPARIN SOD 40 MG/0.4 ML SYRINGE SC SCH (11:31)
[2020-04-27] MEDS: IVERMECTIN 3 MG TAB PO SCH (11:31)
[2020-04-27] MEDS: ASCORBIC ACID 1,000 MG TAB PO SCH (11:31)
[2020-04-27] MEDS: NITROGLYCERIN 50MG/250ML 250 ML IV SCH (12:30)
[2020-04-27] MEDS: SODIUM CHLORIDE 0.9% 1,000 ML IV SCH (12:51)
[2020-04-27] MEDS: Jevity 1.2 Cal/Fiber 1 Liter GT SCH (13:40)
[2020-04-27] MEDS: ACETAMINOPHEN 650 mg PER 20.3 mL UD GT PRN (14:00)
[2020-04-28] VITALS (101 sets, daily range): BP systolic 85–126; BP diastolic 51–78
[2020-04-28] MEDS: fentaNYL Drip 2500mCg/250mlNS 250 ML IV SCH ×2 (00:24→16:00)
[2020-04-28] MEDS: PROPOFOL 100 ML IV SCH ×4 (00:26→23:30)
[2020-04-28] MEDS: SODIUM CHLORIDE 0.9% 1,000 ML IV SCH ×2 (00:30→15:04)
[2020-04-28] MEDS: MIDAZOLAM DRIP 50 mg/50mL 50 ML IV SCH ×5 (02:15→23:06)
[2020-04-28 04:33] LABS: Basophils # (auto) 0.1 10 ^3/uL (0-0.2); Basophils % (auto) 0.6 % (0.0-2.0); Eosinophils # (auto) 0 10 ^3/uL (0-0.8); Eosinophils % (auto) 0.1 % (0.0-7.0); Hematocrit 29.4 % (41.0-53.0); Hemoglobin 10.1 g/dL (13.5-17.5); Lymphocytes # (auto) 0.3 10 ^3/uL (0.4-5.4); Lymphocytes % (auto) 2.6 % (10.0-50.0); Mean Corpuscular Hgb Conc. 34.5 g/dL (32.0-36.0); Mean Corpuscular Volume 95.8 fL (80.0-100.0); Monocytes # (auto) 0.6 10 ^3/uL (0-1.3); Monocytes % (auto) 4.4 % (0.0-12.0); Neutrophils # (auto) 12.1 10 ^3/uL (1.6-8.6); Neutrophils % (auto) 92.3 % (37.0-80.0); Nucleated Red Blood Cells % 0.1 %; Platelet Count (auto) 184 10^3/uL (140-450); Red Blood Cells 3.07 10^6/uL (4.5-5.90); Red Cell Distribution Width 15.8 % (11.8-14.3); White Blood Cell 13.2 10^3/uL (4.4-10.8)
[2020-04-28 04:50] LABS: Albumin 1.4 g/dL (3.4-5.0); Calcium 6.8 mg/dL (8.5-10.1); Potassium 4.2 mmol/L (3.5-5.1)
[2020-04-28 04:52] LABS: BUN/Creatinine Ratio 66.7
[2020-04-28 05:00] LABS: Bilirubin, Total 0.8 mg/dL (0.2-1.0); Total Protein 4.7 g/dL (6.4-8.2)
[2020-04-28] MEDS: ACCU-CHEK COMFORT CURVE STRIP VI SCH ×4 (06:00→17:09)
[2020-04-28] MEDS: InsuLIN REG 1unit/0.01ml Soln (100units/ml) SC SCH ×4 (06:00→17:09)
[2020-04-28] MEDS: ACETYLCYSTEINE 20%(200MG/ML) SOL 4ML NEB SCH ×3 (06:20→22:12)
[2020-04-28] MEDS: BUDESONIDE (INHALATION) 0.5 MG/2 ML NEB NEB SCH ×2 (06:20→22:12)
[2020-04-28] MEDS: ALBUTEROL SULF 2.5 MG/0.5ML(0.5%) NEB SOLN NEB PRN ×3 (06:21→22:12)
[2020-04-28] MEDS: CHOLECALCIFEROL (VITD3) 2,000 UNIT CAP/TAB PO SCH (10:00)
[2020-04-28] MEDS: FLUCONAZOLE 200MG/100ML 100 ML IV SCH (10:10)
[2020-04-28] MEDS: FAMOTIDINE (10MG/ML) 2ML VL IV SCH ×2 (10:10→22:09)
[2020-04-28] MEDS: ENOXAPARIN SOD 40 MG/0.4 ML SYRINGE SC SCH (10:11)
[2020-04-28] MEDS: SODIUM CHLOR 0.9% PF (SALINE LOCK) 10ML VIAL/SYR IV SCH ×2 (10:11→22:09)
[2020-04-28] MEDS: DexAMETHasone SOD PHOS 10MG/1ML VIAL INJ IV SCH (10:11)
[2020-04-28] MEDS: ZINC SULFATE 220mg CAP or TAB PO SCH (10:11)
[2020-04-28 10:12] LABS: INR 1.06 (0.9-1.15); Partial Thromboplastin Time 27.1 sec (23.0-31.2)
[2020-04-28] MEDS: ASCORBIC ACID 1,000 MG TAB PO SCH (10:12)
[2020-04-28] MEDS: acetaZOLAMIDE 250 MG TAB PO SCH (10:13)
[2020-04-28] MEDS: ROCURONIUM BROMIDE 1,000 MG in D5W 5% 150 ML IV SCH (11:15)
[2020-04-28] MEDS: NITROGLYCERIN 50MG/250ML 250 ML IV SCH (12:30)
[2020-04-29] VITALS (98 sets, daily range): BP systolic 90–130; BP diastolic 53–86
[2020-04-29] MEDS: fentaNYL Drip 2500mCg/250mlNS 250 ML IV SCH ×2 (00:38→09:06)
[2020-04-29] MEDS: MIDAZOLAM DRIP 50 mg/50mL 50 ML IV SCH ×6 (02:51→23:30)
[2020-04-29] MEDS: SODIUM CHLORIDE 0.9% 1,000 ML IV SCH ×3 (03:10→20:00)
[2020-04-29] MEDS: PROPOFOL 100 ML IV SCH ×5 (03:48→19:30)
[2020-04-29] MEDS: ACCU-CHEK COMFORT CURVE STRIP VI SCH ×4 (05:56→18:00)
[2020-04-29] MEDS: InsuLIN REG 1unit/0.01ml Soln (100units/ml) SC SCH ×4 (05:59→18:00)
[2020-04-29] MEDS: ACETYLCYSTEINE 20%(200MG/ML) SOL 4ML NEB SCH (06:00)
[2020-04-29] MEDS: BUDESONIDE (INHALATION) 0.5 MG/2 ML NEB NEB SCH ×2 (06:35→22:12)
[2020-04-29] MEDS: NOREPINEPHRINE 8 MG/250ML KIT 250 ML IV SCH ×2 (07:00→21:00)
[2020-04-29] MEDS: DexAMETHasone SOD PHOS 10MG/1ML VIAL INJ IV SCH (09:07)
[2020-04-29] MEDS: FLUCONAZOLE 200MG/100ML 100 ML IV SCH (09:08)
[2020-04-29] MEDS: ZINC SULFATE 220mg CAP or TAB PO SCH (09:08)
[2020-04-29] MEDS: FAMOTIDINE (10MG/ML) 2ML VL IV SCH ×2 (09:08→22:00)
[2020-04-29] MEDS: CHOLECALCIFEROL (VITD3) 2,000 UNIT CAP/TAB PO SCH (09:09)
[2020-04-29] MEDS: ASCORBIC ACID 1,000 MG TAB PO SCH (09:10)
[2020-04-29] MEDS: ENOXAPARIN SOD 40 MG/0.4 ML SYRINGE SC SCH (09:10)
[2020-04-29] MEDS: SODIUM CHLOR 0.9% PF (SALINE LOCK) 10ML VIAL/SYR IV SCH ×2 (10:00→22:00)
[2020-04-29] MEDS: ROCURONIUM BROMIDE 1,000 MG in D5W 5% 150 ML IV SCH (11:30)
[2020-04-29] MEDS: NITROGLYCERIN 50MG/250ML 250 ML IV SCH (12:30)
[2020-04-29] MEDS: Jevity 1.2 Cal/Fiber 1 Liter GT SCH (20:00)
[2020-04-29] MEDS: ALBUTEROL SULF 2.5 MG/0.5ML(0.5%) NEB SOLN NEB PRN (22:13)
[2020-04-30] VITALS (101 sets, daily range): BP systolic 90–135; BP diastolic 53–81
[2020-04-30] MEDS: MIDAZOLAM DRIP 50 mg/50mL 50 ML IV SCH ×5 (03:05→21:30)
[2020-04-30] MEDS ORDERED: SODIUM BICARBONATE 8.4 % INJ 50ML VIAL IV ONE (03:10)
[2020-04-30] MEDS: InsuLIN REG 1unit/0.01ml Soln (100units/ml) SC SCH ×4 (05:58→18:54)
[2020-04-30] MEDS: ACCU-CHEK COMFORT CURVE STRIP VI SCH ×4 (05:58→18:52)
[2020-04-30] MEDS: ALBUTEROL SULF 2.5 MG/0.5ML(0.5%) NEB SOLN NEB PRN ×2 (06:35→18:06)
[2020-04-30] MEDS: fentaNYL Drip 2500mCg/250mlNS 250 ML IV SCH ×3 (08:32→16:24)
[2020-04-30] MEDS: PROPOFOL 100 ML IV SCH ×2 (08:55→13:07)
[2020-04-30] MEDS: ENOXAPARIN SOD 40 MG/0.4 ML SYRINGE SC SCH (09:39)
[2020-04-30] MEDS: FLUCONAZOLE 200MG/100ML 100 ML IV SCH (10:05)
[2020-04-30] MEDS: DexAMETHasone SOD PHOS 10MG/1ML VIAL INJ IV SCH (10:05)
[2020-04-30] MEDS: CHOLECALCIFEROL (VITD3) 2,000 UNIT CAP/TAB PO SCH (10:06)
[2020-04-30] MEDS: SODIUM CHLOR 0.9% PF (SALINE LOCK) 10ML VIAL/SYR IV SCH ×2 (10:06→22:00)
[2020-04-30] MEDS: ASCORBIC ACID 1,000 MG TAB PO SCH (10:06)
[2020-04-30] MEDS: FAMOTIDINE (10MG/ML) 2ML VL IV SCH ×2 (10:06→22:00)
[2020-04-30] MEDS: ZINC SULFATE 220mg CAP or TAB PO SCH (10:06)
[2020-04-30] MEDS: ROCURONIUM BROMIDE 1,000 MG in D5W 5% 150 ML IV SCH (11:30)
[2020-04-30] MEDS: NITROGLYCERIN 50MG/250ML 250 ML IV SCH (12:30)
[2020-04-30] MEDS: BUDESONIDE (INHALATION) 0.5 MG/2 ML NEB NEB SCH (18:06)
[2020-04-30] MEDS: Jevity 1.2 Cal/Fiber 1 Liter GT SCH (20:00)
[2020-05-01] VITALS (97 sets, daily range): BP systolic 105–145; BP diastolic 65–93
[2020-05-01] MEDS: MIDAZOLAM DRIP 50 mg/50mL 50 ML IV SCH ×2 (02:14→20:00)
[2020-05-01] MEDS: SODIUM CHLORIDE 0.9% 1,000 ML IV SCH ×2 (05:15→08:00)
[2020-05-01] MEDS: ACCU-CHEK COMFORT CURVE STRIP VI SCH ×4 (06:00→18:10)
[2020-05-01] MEDS: InsuLIN REG 1unit/0.01ml Soln (100units/ml) SC SCH ×4 (06:00→18:10)
[2020-05-01] MEDS: NOREPINEPHRINE 8 MG/250ML KIT 250 ML IV SCH ×2 (06:15→08:00)
[2020-05-01 09:32] LABS: Basophils # (auto) 0 10 ^3/uL (0-0.2); Basophils % (auto) 0.3 % (0.0-2.0); Eosinophils # (auto) 0 10 ^3/uL (0-0.8); Eosinophils % (auto) 0.3 % (0.0-7.0); Hematocrit 27.6 % (41.0-53.0); Hemoglobin 9.8 g/dL (13.5-17.5); Lymphocytes # (auto) 0.6 10 ^3/uL (0.4-5.4); Lymphocytes % (auto) 7.4 % (10.0-50.0); Mean Corpuscular Hemoglobin 33.6 pg (28.0-32.0); Mean Corpuscular Hgb Conc. 35.6 g/dL (32.0-36.0); Mean Corpuscular Volume 94.4 fL (80.0-100.0); Monocytes # (auto) 0.6 10 ^3/uL (0-1.3); Monocytes % (auto) 7.3 % (0.0-12.0); Neutrophils # (auto) 7.3 10 ^3/uL (1.6-8.6); Neutrophils % (auto) 84.7 % (37.0-80.0); Platelet Count (auto) 143 10^3/uL (140-450); Red Blood Cells 2.93 10^6/uL (4.5-5.90); Red Cell Distribution Width 15.6 % (11.8-14.3); White Blood Cell 8.6 10^3/uL (4.4-10.8)
[2020-05-01 09:42] LABS: Albumin 1.5 g/dL (3.4-5.0); Calcium 6.8 mg/dL (8.5-10.1)
[2020-05-01 09:49] LABS: BUN/Creatinine Ratio 82.4; Bilirubin, Total 0.7 mg/dL (0.2-1.0); Total Protein 4.8 g/dL (6.4-8.2)
[2020-05-01] MEDS: SODIUM CHLOR 0.9% PF (SALINE LOCK) 10ML VIAL/SYR IV SCH ×2 (10:00→22:00)
[2020-05-01] MEDS: ZINC SULFATE 220mg CAP or TAB PO SCH (10:00)
[2020-05-01] MEDS: FAMOTIDINE (10MG/ML) 2ML VL IV SCH ×2 (10:00→22:00)
[2020-05-01] MEDS: ASCORBIC ACID 1,000 MG TAB PO SCH (10:00)
[2020-05-01] MEDS: ENOXAPARIN SOD 40 MG/0.4 ML SYRINGE SC SCH (10:00)
[2020-05-01] MEDS: CHOLECALCIFEROL (VITD3) 2,000 UNIT CAP/TAB PO SCH (10:00)
[2020-05-01] MEDS ORDERED: SODIUM FERR GLUC 62.5MG/5ML 125 MG in SODIUM CHL 0.9% 100 ML IV ONE (10:15)
[2020-05-01] MEDS: DexAMETHasone SOD PHOS 10MG/1ML VIAL INJ IV SCH (10:15)
[2020-05-01] MEDS ORDERED: EPOETIN ALFA 10,000 UNIT/1 ML VIAL SC ONE (10:30)
[2020-05-01] MEDS: ROCURONIUM BROMIDE 1,000 MG in D5W 5% 150 ML IV SCH (11:30)
[2020-05-01] MEDS: NITROGLYCERIN 50MG/250ML 250 ML IV SCH (12:30)
[2020-05-01] MEDS: FUROSEMIDE 40 MG/4 ML VIAL IV SCH (12:30)
[2020-05-01] MEDS: PROPOFOL 100 ML IV SCH ×2 (19:30→23:00)
[2020-05-01] MEDS: Jevity 1.2 Cal/Fiber 1 Liter GT SCH (20:00)
[2020-05-01] MEDS: BUDESONIDE (INHALATION) 0.5 MG/2 ML NEB NEB SCH (20:09)
[2020-05-01] MEDS: ALBUTEROL SULF 2.5 MG/0.5ML(0.5%) NEB SOLN NEB PRN (20:10)
[2020-05-02] VITALS (93 sets, daily range): BP systolic 94–128; BP diastolic 58–88
[2020-05-02] MEDS: MIDAZOLAM DRIP 50 mg/50mL 50 ML IV SCH ×2 (02:00→19:00)
[2020-05-02] MEDS: fentaNYL Drip 2500mCg/250mlNS 250 ML IV SCH (02:00)
[2020-05-02] MEDS: PROPOFOL 100 ML IV SCH ×2 (02:30→21:20)
[2020-05-02] MEDS: ACCU-CHEK COMFORT CURVE STRIP VI SCH ×4 (06:00→18:09)
[2020-05-02] MEDS: InsuLIN REG 1unit/0.01ml Soln (100units/ml) SC SCH ×4 (06:00→18:00)
[2020-05-02] MEDS: NOREPINEPHRINE 8 MG/250ML KIT 250 ML IV SCH (06:15)
[2020-05-02] MEDS: FAMOTIDINE (10MG/ML) 2ML VL IV SCH ×2 (10:00→21:49)
[2020-05-02] MEDS: SODIUM CHLOR 0.9% PF (SALINE LOCK) 10ML VIAL/SYR IV SCH ×2 (10:00→21:49)
[2020-05-02] MEDS: ASCORBIC ACID 1,000 MG TAB PO SCH (10:00)
[2020-05-02] MEDS: DexAMETHasone SOD PHOS 10MG/1ML VIAL INJ IV SCH (10:00)
[2020-05-02] MEDS: FUROSEMIDE 40 MG/4 ML VIAL IV SCH (10:00)
[2020-05-02] MEDS: CHOLECALCIFEROL (VITD3) 2,000 UNIT CAP/TAB PO SCH (10:00)
[2020-05-02] MEDS: ZINC SULFATE 220mg CAP or TAB PO SCH (10:00)
[2020-05-02] MEDS: ENOXAPARIN SOD 40 MG/0.4 ML SYRINGE SC SCH (10:00)
[2020-05-02] MEDS: BUDESONIDE (INHALATION) 0.5 MG/2 ML NEB NEB SCH ×2 (10:28→18:50)
[2020-05-02] MEDS: ALBUTEROL SULF 2.5 MG/0.5ML(0.5%) NEB SOLN NEB PRN ×2 (10:28→18:50)
[2020-05-02] MEDS: ROCURONIUM BROMIDE 1,000 MG in D5W 5% 150 ML IV SCH (11:30)
[2020-05-02] MEDS: NITROGLYCERIN 50MG/250ML 250 ML IV SCH (12:30)
[2020-05-02] MEDS: Jevity 1.2 Cal/Fiber 1 Liter GT SCH (20:00)
[2020-05-03] VITALS (100 sets, daily range): BP systolic 79–148; BP diastolic 46–69
[2020-05-03] MEDS: ACCU-CHEK COMFORT CURVE STRIP VI SCH ×5 (00:15→23:42)
[2020-05-03] MEDS: ACETAMINOPHEN 650 mg PER 20.3 mL UD GT PRN (00:51)
[2020-05-03] MEDS: InsuLIN REG 1unit/0.01ml Soln (100units/ml) SC SCH ×4 (06:00→18:00)
[2020-05-03] MEDS: NOREPINEPHRINE 8 MG/250ML KIT 250 ML IV SCH ×2 (06:15→19:00)
[2020-05-03] MEDS: BUDESONIDE (INHALATION) 0.5 MG/2 ML NEB NEB SCH ×2 (06:20→18:30)
[2020-05-03] MEDS: ALBUTEROL SULF 2.5 MG/0.5ML(0.5%) NEB SOLN NEB PRN ×2 (06:20→18:30)
[2020-05-03] MEDS: DexAMETHasone SOD PHOS 10MG/1ML VIAL INJ IV SCH (10:10)
[2020-05-03] MEDS: FUROSEMIDE 40 MG/4 ML VIAL IV SCH (10:11)
[2020-05-03] MEDS: CHOLECALCIFEROL (VITD3) 2,000 UNIT CAP/TAB PO SCH (10:11)
[2020-05-03] MEDS: ENOXAPARIN SOD 40 MG/0.4 ML SYRINGE SC SCH (10:11)
[2020-05-03] MEDS: FAMOTIDINE (10MG/ML) 2ML VL IV SCH ×2 (10:11→22:00)
[2020-05-03] MEDS: ROCURONIUM BROMIDE 1,000 MG in D5W 5% 150 ML IV SCH (10:11)
[2020-05-03] MEDS: ASCORBIC ACID 1,000 MG TAB PO SCH (10:11)
[2020-05-03] MEDS: ZINC SULFATE 220mg CAP or TAB PO SCH (10:11)
[2020-05-03] MEDS: SODIUM CHLOR 0.9% PF (SALINE LOCK) 10ML VIAL/SYR IV SCH ×2 (10:11→22:00)
[2020-05-03] MEDS: NITROGLYCERIN 50MG/250ML 250 ML IV SCH (12:16)
[2020-05-03] MEDS: fentaNYL Drip 2500mCg/250mlNS 250 ML IV SCH ×2 (14:45→22:00)
[2020-05-03] MEDS: PROPOFOL 100 ML IV SCH (19:00)
[2020-05-03] MEDS: MIDAZOLAM DRIP 50 mg/50mL 50 ML IV SCH (22:00)
[2020-05-04] VITALS (98 sets, daily range): BP systolic 84–118; BP diastolic 47–73
[2020-05-04] MEDS: ACCU-CHEK COMFORT CURVE STRIP VI SCH ×3 (06:00→18:00)
[2020-05-04] MEDS: BUDESONIDE (INHALATION) 0.5 MG/2 ML NEB NEB SCH ×2 (06:54→17:55)
[2020-05-04] MEDS: ALBUTEROL SULF 2.5 MG/0.5ML(0.5%) NEB SOLN NEB PRN ×2 (06:54→17:55)
[2020-05-04 08:26] LABS: Basophils # (auto) 0 10 ^3/uL (0-0.2); Basophils % (auto) 0.2 % (0.0-2.0); Eosinophils # (auto) 0.9 10 ^3/uL (0-0.8); Eosinophils % (auto) 5.9 % (0.0-7.0); Hematocrit 28.9 % (41.0-53.0); Hemoglobin 9.7 g/dL (13.5-17.5); Lymphocytes # (auto) 0.7 10 ^3/uL (0.4-5.4); Lymphocytes % (auto) 4.6 % (10.0-50.0); Mean Corpuscular Hemoglobin 31.6 pg (28.0-32.0); Mean Corpuscular Hgb Conc. 33.7 g/dL (32.0-36.0); Mean Corpuscular Volume 93.7 fL (80.0-100.0); Monocytes # (auto) 1.1 10 ^3/uL (0-1.3); Monocytes % (auto) 7.5 % (0.0-12.0); Neutrophils # (auto) 11.9 10 ^3/uL (1.6-8.6); Neutrophils % (auto) 81.8 % (37.0-80.0); Platelet Count (auto) 151 10^3/uL (140-450); Red Blood Cells 3.09 10^6/uL (4.5-5.90); White Blood Cell 14.5 10^3/uL (4.4-10.8)
[2020-05-04 08:40] LABS: Chloride 100 mmol/L (98-107); Potassium 4.1 mmol/L (3.5-5.1); Sodium 143 mmol/L (136-145)
[2020-05-04 08:43] LABS: Alanine Aminotransferase 48 U/L (16-61); Albumin 1.6 g/dL (3.4-5.0); Anion Gap 2 (5-15); Aspartate Aminotransferase 54 U/L (15-37); Blood Urea Nitrogen 15 mg/dL (7-18); Calcium 7.8 mg/dL (8.5-10.1); GFR African American 864 mL/min; GFR Non-African American 714 mL/min; Glucose 99 mg/dL (74-106)
[2020-05-04 08:46] LABS: Alkaline Phosphatase 135 U/L (45-117); Bilirubin, Total 0.6 mg/dL (0.2-1.0); Total Protein 4.9 g/dL (6.4-8.2)
[2020-05-04 08:58] LABS: Carbon Dioxide 41 mmol/L (21-32)
[2020-05-04] MEDS: ZINC SULFATE 220mg CAP or TAB PO SCH (10:00)
[2020-05-04 10:28] LABS: INR 1.1 (0.9-1.15)
[2020-05-04] MEDS: ROCURONIUM BROMIDE 1,000 MG in D5W 5% 150 ML IV SCH (11:30)
[2020-05-04] MEDS: InsuLIN REG 1unit/0.01ml Soln (100units/ml) SC SCH ×3 (12:16→18:00)
[2020-05-04] MEDS: NITROGLYCERIN 50MG/250ML 250 ML IV SCH (12:30)
[2020-05-04] MEDS: DexAMETHasone SOD PHOS 10MG/1ML VIAL INJ IV SCH (12:57)
[2020-05-04] MEDS: FAMOTIDINE (10MG/ML) 2ML VL IV SCH ×2 (12:57→22:00)
[2020-05-04] MEDS: SODIUM CHLOR 0.9% PF (SALINE LOCK) 10ML VIAL/SYR IV SCH ×2 (12:58→22:00)
[2020-05-04] MEDS: ASCORBIC ACID 1,000 MG TAB PO SCH (12:58)
[2020-05-04] MEDS: FUROSEMIDE 40 MG/4 ML VIAL IV SCH (12:58)
[2020-05-04] MEDS: CHOLECALCIFEROL (VITD3) 2,000 UNIT CAP/TAB PO SCH (12:58)
[2020-05-04] MEDS: PROPOFOL 100 ML IV SCH ×2 (15:49→20:00)
[2020-05-04] MEDS: MIDAZOLAM DRIP 50 mg/50mL 50 ML IV SCH ×2 (15:49→20:00)
[2020-05-04] MEDS: fentaNYL Drip 2500mCg/250mlNS 250 ML IV SCH (15:50)
[2020-05-04] MEDS: NOREPINEPHRINE 8 MG/250ML KIT 250 ML IV SCH (20:00)
[2020-05-05] VITALS (93 sets, daily range): BP systolic 88–151; BP diastolic 55–93
[2020-05-05] MEDS: InsuLIN REG 1unit/0.01ml Soln (100units/ml) SC SCH ×3 (06:00→12:00)
[2020-05-05] MEDS: ACCU-CHEK COMFORT CURVE STRIP VI SCH ×4 (06:00→18:00)
[2020-05-05] MEDS: NOREPINEPHRINE 8 MG/250ML KIT 250 ML IV SCH (06:00)
[2020-05-05] MEDS: BUDESONIDE (INHALATION) 0.5 MG/2 ML NEB NEB SCH (06:10)
[2020-05-05] MEDS: CHOLECALCIFEROL (VITD3) 2,000 UNIT CAP/TAB PO SCH (10:00)
[2020-05-05] MEDS: FUROSEMIDE 40 MG/4 ML VIAL IV SCH (10:00)
[2020-05-05] MEDS: FAMOTIDINE (10MG/ML) 2ML VL IV SCH ×2 (10:00→22:00)
[2020-05-05] MEDS: SODIUM CHLOR 0.9% PF (SALINE LOCK) 10ML VIAL/SYR IV SCH ×2 (10:00→22:00)
[2020-05-05] MEDS: DexAMETHasone SOD PHOS 10MG/1ML VIAL INJ IV SCH (10:00)
[2020-05-05] MEDS: ASCORBIC ACID 1,000 MG TAB PO SCH (10:00)
[2020-05-05] MEDS: ZINC SULFATE 220mg CAP or TAB PO SCH (10:00)
[2020-05-05] MEDS: ALBUTEROL SULF 2.5 MG/0.5ML(0.5%) NEB SOLN NEB PRN (11:02)
[2020-05-05] MEDS: ROCURONIUM BROMIDE 1,000 MG in D5W 5% 150 ML IV SCH (11:30)
[2020-05-05] MEDS: NITROGLYCERIN 50MG/250ML 250 ML IV SCH (12:30)
[2020-05-05] MEDS ORDERED: EPINEPHrine HCL 1 MG/10 ML SYRG ONE (15:50)
[2020-05-05] MEDS ORDERED: LIDOCAINE 2%HCL (LOCAL ANESTH.) INJ 20ML MDV ONE (15:50)
[2020-05-05] MEDS ORDERED: fentaNYL CITRATE 100 MCG/2 ML VL ONE (15:51)
[2020-05-05] MEDS ORDERED: MIDAZOLAM HCL 5 MG/ML-1ML VIAL ONE (15:51)
[2020-05-05] MEDS ORDERED: LIDOCAINE HCL 2% TOP JELLY 5ML TOP ONE (15:53)
[2020-05-05] MEDS ORDERED: SODIUM CHLORIDE LOCK 10 ML ONE (15:54)
[2020-05-05] MEDS: PROPOFOL 100 ML IV SCH (20:57)
[2020-05-05] MEDS: MIDAZOLAM DRIP 50 mg/50mL 50 ML IV SCH (22:35)
[2020-05-06] VITALS (84 sets, daily range): BP systolic 98–146; BP diastolic 64–93
[2020-05-06] MEDS: fentaNYL Drip 2500mCg/250mlNS 250 ML IV SCH (01:50)
[2020-05-06] MEDS: MIDAZOLAM DRIP 50 mg/50mL 50 ML IV SCH ×2 (02:57→22:03)
[2020-05-06] MEDS: InsuLIN REG 1unit/0.01ml Soln (100units/ml) SC SCH ×4 (06:00→17:54)
[2020-05-06] MEDS: ACCU-CHEK COMFORT CURVE STRIP VI SCH ×4 (06:00→17:54)
[2020-05-06] MEDS: BUDESONIDE (INHALATION) 0.5 MG/2 ML NEB NEB SCH ×2 (06:20→17:52)
[2020-05-06] MEDS: ALBUTEROL SULF 2.5 MG/0.5ML(0.5%) NEB SOLN NEB PRN ×2 (06:20→17:52)
[2020-05-06] MEDS: SODIUM CHLOR 0.9% PF (SALINE LOCK) 10ML VIAL/SYR IV SCH ×2 (10:00→22:00)
[2020-05-06] MEDS: FUROSEMIDE 40 MG/4 ML VIAL IV SCH (10:00)
[2020-05-06] MEDS: ZINC SULFATE 220mg CAP or TAB PO SCH (10:00)
[2020-05-06] MEDS: ASCORBIC ACID 1,000 MG TAB PO SCH (10:00)
[2020-05-06] MEDS: FAMOTIDINE (10MG/ML) 2ML VL IV SCH ×2 (10:00→22:00)
[2020-05-06] MEDS: CHOLECALCIFEROL (VITD3) 2,000 UNIT CAP/TAB PO SCH (10:00)
[2020-05-06] MEDS: DexAMETHasone SOD PHOS 10MG/1ML VIAL INJ IV SCH (10:00)
[2020-05-06] MEDS: NITROGLYCERIN 50MG/250ML 250 ML IV SCH (19:00)
[2020-05-06] MEDS: ROCURONIUM BROMIDE 1,000 MG in D5W 5% 150 ML IV SCH (19:00)
[2020-05-07] VITALS (81 sets, daily range): BP systolic 90–159; BP diastolic 66–105
[2020-05-07] MEDS: PROPOFOL 100 ML IV SCH (00:48)
[2020-05-07] MEDS: MIDAZOLAM DRIP 50 mg/50mL 50 ML IV SCH ×2 (01:00→05:55)
[2020-05-07] MEDS: BUDESONIDE (INHALATION) 0.5 MG/2 ML NEB NEB SCH ×2 (05:59→19:21)
[2020-05-07] MEDS: ALBUTEROL SULF 2.5 MG/0.5ML(0.5%) NEB SOLN NEB PRN ×3 (05:59→19:21)
[2020-05-07] MEDS: ACCU-CHEK COMFORT CURVE STRIP VI SCH ×4 (06:00→18:00)
[2020-05-07] MEDS: InsuLIN REG 1unit/0.01ml Soln (100units/ml) SC SCH ×4 (06:00→18:00)
[2020-05-07] MEDS: NOREPINEPHRINE 8 MG/250ML KIT 250 ML IV SCH (06:25)
[2020-05-07] MEDS: ASCORBIC ACID 1,000 MG TAB PO SCH (10:00)
[2020-05-07] MEDS: SODIUM CHLOR 0.9% PF (SALINE LOCK) 10ML VIAL/SYR IV SCH ×2 (10:00→22:00)
[2020-05-07] MEDS: CHOLECALCIFEROL (VITD3) 2,000 UNIT CAP/TAB PO SCH (10:00)
[2020-05-07] MEDS: DexAMETHasone SOD PHOS 10MG/1ML VIAL INJ IV SCH (10:00)
[2020-05-07] MEDS: ZINC SULFATE 220mg CAP or TAB PO SCH (10:00)
[2020-05-07] MEDS: FUROSEMIDE 40 MG/4 ML VIAL IV SCH (10:00)
[2020-05-07] MEDS: FAMOTIDINE (10MG/ML) 2ML VL IV SCH (10:00)
[2020-05-07] MEDS: ROCURONIUM BROMIDE 1,000 MG in D5W 5% 150 ML IV SCH (11:30)
[2020-05-07] MEDS: NITROGLYCERIN 50MG/250ML 250 ML IV SCH (12:30)
[2020-05-07 14:37] LABS: Basophils # (auto) 0 10 ^3/uL (0-0.2); Basophils % (auto) 0.3 % (0.0-2.0); Eosinophils # (auto) 0.5 10 ^3/uL (0-0.8); Eosinophils % (auto) 4.4 % (0.0-7.0); Hematocrit 33.4 % (41.0-53.0); Hemoglobin 11.5 g/dL (13.5-17.5); Lymphocytes # (auto) 0.6 10 ^3/uL (0.4-5.4); Lymphocytes % (auto) 5.1 % (10.0-50.0); Mean Corpuscular Hemoglobin 31.8 pg (28.0-32.0); Mean Corpuscular Hgb Conc. 34.3 g/dL (32.0-36.0); Mean Corpuscular Volume 92.7 fL (80.0-100.0); Monocytes % (auto) 8.8 % (0.0-12.0); Neutrophils # (auto) 9.2 10 ^3/uL (1.6-8.6); Neutrophils % (auto) 81.4 % (37.0-80.0); Platelet Count (auto) 175 10^3/uL (140-450); Red Cell Distribution Width 15.4 % (11.8-14.3); White Blood Cell 11.2 10^3/uL (4.4-10.8)
[2020-05-07 14:56] LABS: Alanine Aminotransferase 57 U/L (16-61); Albumin 1.8 g/dL (3.4-5.0); Anion Gap 7 (5-15); Aspartate Aminotransferase 50 U/L (15-37); Blood Urea Nitrogen 12 mg/dL (7-18); Calcium 7.7 mg/dL (8.5-10.1); Carbon Dioxide 35 mmol/L (21-32); Chloride 97 mmol/L (98-107); GFR African American 620 mL/min; GFR Non-African American 512 mL/min; Glucose 111 mg/dL (74-106); Sodium 139 mmol/L (136-145)
[2020-05-07 14:59] LABS: Alkaline Phosphatase 122 U/L (45-117); Bilirubin, Total 1.1 mg/dL (0.2-1.0); Total Protein 5.8 g/dL (6.4-8.2)
[2020-05-07 15:53] LABS: Potassium 2.9 mmol/L (3.5-5.1)
[2020-05-07] MEDS: POTASSIUM CHL 20MEQ/100ML 100 ML IV SCH ×3 (16:15→20:15)
[2020-05-07] MEDS: fentaNYL Drip 2500mCg/250mlNS 250 ML IV SCH (23:00)
[2020-05-08] VITALS (83 sets, daily range): BP systolic 89–162; BP diastolic 56–96
[2020-05-08] MEDS: FAMOTIDINE (10MG/ML) 2ML VL IV SCH ×3 (03:00→22:15)
[2020-05-08] MEDS: MIDAZOLAM DRIP 50 mg/50mL 50 ML IV SCH ×4 (03:47→23:59)
[2020-05-08] MEDS: ACCU-CHEK COMFORT CURVE STRIP VI SCH ×4 (03:55→18:00)
[2020-05-08] MEDS: InsuLIN REG 1unit/0.01ml Soln (100units/ml) SC SCH ×4 (04:53→18:00)
[2020-05-08] MEDS: PROPOFOL 100 ML IV SCH ×2 (06:00→22:16)
[2020-05-08] MEDS: NOREPINEPHRINE 8 MG/250ML KIT 250 ML IV SCH (06:15)
[2020-05-08] MEDS: DexAMETHasone SOD PHOS 10MG/1ML VIAL INJ IV SCH (10:00)
[2020-05-08] MEDS: FUROSEMIDE 40 MG/4 ML VIAL IV SCH (10:00)
[2020-05-08] MEDS: BUDESONIDE (INHALATION) 0.5 MG/2 ML NEB NEB SCH ×2 (10:00→22:00)
[2020-05-08] MEDS: SODIUM CHLOR 0.9% PF (SALINE LOCK) 10ML VIAL/SYR IV SCH ×2 (10:00→22:15)
[2020-05-08] MEDS: CHOLECALCIFEROL (VITD3) 2,000 UNIT CAP/TAB PO SCH (10:00)
[2020-05-08] MEDS: ASCORBIC ACID 1,000 MG TAB PO SCH (10:00)
[2020-05-08] MEDS: ZINC SULFATE 220mg CAP or TAB PO SCH (10:00)
[2020-05-08] MEDS: FLUCONAZOLE 200MG/100ML 100 ML IV SCH (19:47)
[2020-05-08] MEDS: ALBUTEROL SULF 2.5 MG/0.5ML(0.5%) NEB SOLN NEB PRN (22:53)
[2020-05-09] VITALS (72 sets, daily range): BP systolic 92–139; BP diastolic 62–83
[2020-05-09 04:41] LABS: Basophils # (auto) 0 10 ^3/uL (0-0.2); Basophils % (auto) 0.2 % (0.0-2.0); Eosinophils # (auto) 0.1 10 ^3/uL (0-0.8); Eosinophils % (auto) 0.7 % (0.0-7.0); Hematocrit 32.8 % (41.0-53.0); Hemoglobin 11.2 g/dL (13.5-17.5); Lymphocytes # (auto) 0.7 10 ^3/uL (0.4-5.4); Lymphocytes % (auto) 4.1 % (10.0-50.0); Mean Corpuscular Hemoglobin 31.6 pg (28.0-32.0); Mean Corpuscular Hgb Conc. 34.1 g/dL (32.0-36.0); Mean Corpuscular Volume 92.7 fL (80.0-100.0); Monocytes # (auto) 1.6 10 ^3/uL (0-1.3); Monocytes % (auto) 9.8 % (0.0-12.0); Neutrophils # (auto) 14.2 10 ^3/uL (1.6-8.6); Neutrophils % (auto) 85.2 % (37.0-80.0); Platelet Count (auto) 219 10^3/uL (140-450); Red Blood Cells 3.54 10^6/uL (4.5-5.90); Red Cell Distribution Width 15.6 % (11.8-14.3); White Blood Cell 16.6 10^3/uL (4.4-10.8)
[2020-05-09] MEDS: MIDAZOLAM DRIP 50 mg/50mL 50 ML IV SCH ×4 (04:53→23:54)
[2020-05-09 05:02] LABS: Potassium 3.6 mmol/L (3.5-5.1)
[2020-05-09 05:09] LABS: BUN/Creatinine Ratio 90.5; Bilirubin, Total 0.9 mg/dL (0.2-1.0); Calcium 8.5 mg/dL (8.5-10.1); Total Protein 6.3 g/dL (6.4-8.2)
[2020-05-09] MEDS: ALBUTEROL SULF 2.5 MG/0.5ML(0.5%) NEB SOLN NEB PRN ×2 (06:25→18:46)
[2020-05-09] MEDS: BUDESONIDE (INHALATION) 0.5 MG/2 ML NEB NEB SCH ×2 (06:25→18:46)
[2020-05-09] MEDS: DexAMETHasone SOD PHOS 10MG/1ML VIAL INJ IV SCH (10:00)
[2020-05-09] MEDS: ASCORBIC ACID 1,000 MG TAB PO SCH (10:00)
[2020-05-09] MEDS: SODIUM CHLOR 0.9% PF (SALINE LOCK) 10ML VIAL/SYR IV SCH ×2 (10:00→21:40)
[2020-05-09] MEDS: FAMOTIDINE (10MG/ML) 2ML VL IV SCH ×2 (10:00→21:40)
[2020-05-09] MEDS: ZINC SULFATE 220mg CAP or TAB PO SCH (10:00)
[2020-05-09] MEDS: FUROSEMIDE 40 MG/4 ML VIAL IV SCH (10:00)
[2020-05-09] MEDS: CHOLECALCIFEROL (VITD3) 2,000 UNIT CAP/TAB PO SCH (10:00)
[2020-05-09] MEDS: Jevity 1.2 Cal/Fiber 1 Liter GT SCH (20:00)
[2020-05-09] MEDS: fentaNYL Drip 2500mCg/250mlNS 250 ML IV SCH (20:00)
[2020-05-09] MEDS: PROPOFOL 100 ML IV SCH (21:41)
[2020-05-09] MEDS: ACCU-CHEK COMFORT CURVE STRIP VI SCH ×2 (23:53)
[2020-05-09] MEDS: InsuLIN REG 1unit/0.01ml Soln (100units/ml) SC SCH ×2 (23:54)
[2020-05-10] VITALS (102 sets, daily range): BP systolic 87–144; BP diastolic 43–85
[2020-05-10] MEDS: PROPOFOL 100 ML IV SCH ×3 (04:06→20:02)
[2020-05-10] MEDS: fentaNYL Drip 2500mCg/250mlNS 250 ML IV SCH (04:09)
[2020-05-10] MEDS: MIDAZOLAM DRIP 50 mg/50mL 50 ML IV SCH ×5 (04:22→23:00)
[2020-05-10] MEDS: ACCU-CHEK COMFORT CURVE STRIP VI SCH ×3 (06:00→17:44)
[2020-05-10] MEDS: InsuLIN REG 1unit/0.01ml Soln (100units/ml) SC SCH ×3 (06:00→17:44)
[2020-05-10] MEDS: NOREPINEPHRINE 8 MG/250ML KIT 250 ML IV SCH (06:15)
[2020-05-10 06:43] LABS: Basophils # (auto) 0 10 ^3/uL (0-0.2); Basophils % (auto) 0.3 % (0.0-2.0); Eosinophils # (auto) 0.3 10 ^3/uL (0-0.8); Eosinophils % (auto) 2.6 % (0.0-7.0); Hematocrit 30.5 % (41.0-53.0); Hemoglobin 10.4 g/dL (13.5-17.5); Lymphocytes # (auto) 0.6 10 ^3/uL (0.4-5.4); Lymphocytes % (auto) 5.3 % (10.0-50.0); Mean Corpuscular Hemoglobin 32.2 pg (28.0-32.0); Mean Corpuscular Hgb Conc. 34.2 g/dL (32.0-36.0); Mean Corpuscular Volume 94.2 fL (80.0-100.0); Monocytes # (auto) 0.9 10 ^3/uL (0-1.3); Monocytes % (auto) 7.8 % (0.0-12.0); Neutrophils # (auto) 9.9 10 ^3/uL (1.6-8.6); Nucleated Red Blood Cells % 0.1 %; Platelet Count (auto) 182 10^3/uL (140-450); Red Blood Cells 3.24 10^6/uL (4.5-5.90); Red Cell Distribution Width 15.7 % (11.8-14.3); White Blood Cell 11.8 10^3/uL (4.4-10.8)
[2020-05-10 06:51] LABS: Chloride 96 mmol/L (98-107); Potassium 3.6 mmol/L (3.5-5.1); Sodium 139 mmol/L (136-145)
[2020-05-10 06:56] LABS: Anion Gap 1 (5-15); BUN/Creatinine Ratio 113.3; Blood Urea Nitrogen 17 mg/dL (7-18); Calcium 8.1 mg/dL (8.5-10.1); GFR African American 864 mL/min; GFR Non-African American 714 mL/min; Glucose 79 mg/dL (74-106)
[2020-05-10 07:03] LABS: Carbon Dioxide 42 mmol/L (21-32)
[2020-05-10] MEDS: BUDESONIDE (INHALATION) 0.5 MG/2 ML NEB NEB SCH ×2 (07:30→22:11)
[2020-05-10] MEDS: NITROGLYCERIN 50MG/250ML 250 ML IV SCH ×3 (07:44→12:30)
[2020-05-10] MEDS: ROCURONIUM BROMIDE 1,000 MG in D5W 5% 150 ML IV SCH ×2 (07:54→11:13)
[2020-05-10] MEDS: DexAMETHasone SOD PHOS 10MG/1ML VIAL INJ IV SCH (10:08)
[2020-05-10] MEDS: FUROSEMIDE 40 MG/4 ML VIAL IV SCH (10:09)
[2020-05-10] MEDS: ASCORBIC ACID 1,000 MG TAB PO SCH (10:09)
[2020-05-10] MEDS: CHOLECALCIFEROL (VITD3) 2,000 UNIT CAP/TAB PO SCH (10:09)
[2020-05-10] MEDS: SODIUM CHLOR 0.9% PF (SALINE LOCK) 10ML VIAL/SYR IV SCH ×2 (10:09→21:34)
[2020-05-10] MEDS: ZINC SULFATE 220mg CAP or TAB PO SCH (10:09)
[2020-05-10] MEDS: FAMOTIDINE (10MG/ML) 2ML VL IV SCH ×2 (10:09→21:34)
[2020-05-10] MEDS: FLUCONAZOLE 200MG/100ML 100 ML IV SCH ×2 (12:03→12:10)
[2020-05-10] MEDS: ALBUTEROL SULF 2.5 MG/0.5ML(0.5%) NEB SOLN NEB PRN (22:11)
[2020-05-11] VITALS (99 sets, daily range): BP systolic 86–136; BP diastolic 47–82
[2020-05-11] MEDS: PROPOFOL 100 ML IV SCH ×4 (00:48→20:00)
[2020-05-11] MEDS: Jevity 1.2 Cal/Fiber 1 Liter GT SCH (03:52)
[2020-05-11] MEDS: fentaNYL Drip 2500mCg/250mlNS 250 ML IV SCH ×2 (03:52→17:00)
[2020-05-11] MEDS: MIDAZOLAM DRIP 50 mg/50mL 50 ML IV SCH ×3 (03:53→21:00)
[2020-05-11] MEDS: ACCU-CHEK COMFORT CURVE STRIP VI SCH ×4 (05:45→17:30)
[2020-05-11] MEDS: NOREPINEPHRINE 8 MG/250ML KIT 250 ML IV SCH (05:45)
[2020-05-11] MEDS: InsuLIN REG 1unit/0.01ml Soln (100units/ml) SC SCH ×4 (05:45→18:13)
[2020-05-11] MEDS: FLUCONAZOLE 200MG/100ML 100 ML IV SCH (09:32)
[2020-05-11] MEDS: FUROSEMIDE 40 MG/4 ML VIAL IV SCH (10:00)
[2020-05-11] MEDS: CHOLECALCIFEROL (VITD3) 2,000 UNIT CAP/TAB PO SCH (10:00)
[2020-05-11] MEDS: ZINC SULFATE 220mg CAP or TAB PO SCH (10:00)
[2020-05-11] MEDS: FAMOTIDINE (10MG/ML) 2ML VL IV SCH ×2 (10:00→21:32)
[2020-05-11] MEDS: DexAMETHasone SOD PHOS 10MG/1ML VIAL INJ IV SCH (10:00)
[2020-05-11] MEDS: SODIUM CHLOR 0.9% PF (SALINE LOCK) 10ML VIAL/SYR IV SCH ×2 (10:00→21:32)
[2020-05-11] MEDS: ASCORBIC ACID 1,000 MG TAB PO SCH (10:00)
[2020-05-11] MEDS: ROCURONIUM BROMIDE 1,000 MG in D5W 5% 150 ML IV SCH (10:59)
[2020-05-11] MEDS: NITROGLYCERIN 50MG/250ML 250 ML IV SCH (12:30)
[2020-05-11] MEDS: BUDESONIDE (INHALATION) 0.5 MG/2 ML NEB NEB SCH ×2 (15:30→22:52)
[2020-05-11] MEDS: ALBUTEROL SULF 2.5 MG/0.5ML(0.5%) NEB SOLN NEB PRN (15:30)
[2020-05-12] VITALS (99 sets, daily range): BP systolic 80–124; BP diastolic 46–71
[2020-05-12] MEDS: ACCU-CHEK COMFORT CURVE STRIP VI SCH ×5 (00:21→23:59)
[2020-05-12] MEDS: InsuLIN REG 1unit/0.01ml Soln (100units/ml) SC SCH ×4 (00:40→17:45)
[2020-05-12] MEDS: Jevity 1.2 Cal/Fiber 1 Liter GT SCH (05:00)
[2020-05-12 05:08] LABS: Basophils # (auto) 0 10 ^3/uL (0-0.2); Basophils % (auto) 0.2 % (0.0-2.0); Eosinophils # (auto) 0.1 10 ^3/uL (0-0.8); Eosinophils % (auto) 1.3 % (0.0-7.0); Hematocrit 28.9 % (41.0-53.0); Hemoglobin 9.7 g/dL (13.5-17.5); Lymphocytes # (auto) 0.5 10 ^3/uL (0.4-5.4); Lymphocytes % (auto) 4.9 % (10.0-50.0); Mean Corpuscular Hemoglobin 31.8 pg (28.0-32.0); Mean Corpuscular Hgb Conc. 33.6 g/dL (32.0-36.0); Mean Corpuscular Volume 94.6 fL (80.0-100.0); Monocytes # (auto) 0.7 10 ^3/uL (0-1.3); Monocytes % (auto) 6.4 % (0.0-12.0); Neutrophils # (auto) 9.3 10 ^3/uL (1.6-8.6); Neutrophils % (auto) 87.2 % (37.0-80.0); Platelet Count (auto) 174 10^3/uL (140-450); Red Blood Cells 3.05 10^6/uL (4.5-5.90); Red Cell Distribution Width 15.3 % (11.8-14.3); White Blood Cell 10.7 10^3/uL (4.4-10.8)
[2020-05-12 05:27] LABS: Potassium 3.7 mmol/L (3.5-5.1)
[2020-05-12] MEDS: fentaNYL Drip 2500mCg/250mlNS 250 ML IV SCH ×2 (05:30→19:21)
[2020-05-12 05:33] LABS: Albumin 1.7 g/dL (3.4-5.0); BUN/Creatinine Ratio 81.3; Bilirubin, Total 0.5 mg/dL (0.2-1.0); Calcium 7.9 mg/dL (8.5-10.1); Total Protein 5.4 g/dL (6.4-8.2)
[2020-05-12] MEDS: NOREPINEPHRINE 8 MG/250ML KIT 250 ML IV SCH (05:55)
[2020-05-12] MEDS: BUDESONIDE (INHALATION) 0.5 MG/2 ML NEB NEB SCH ×2 (06:26→18:36)
[2020-05-12] MEDS: ALBUTEROL SULF 2.5 MG/0.5ML(0.5%) NEB SOLN NEB PRN ×3 (06:26→18:36)
[2020-05-12] MEDS: PROPOFOL 100 ML IV SCH ×4 (08:00→19:21)
[2020-05-12] MEDS: MIDAZOLAM DRIP 50 mg/50mL 50 ML IV SCH ×5 (08:00→21:00)
[2020-05-12] MEDS: FUROSEMIDE 40 MG/4 ML VIAL IV SCH (10:23)
[2020-05-12] MEDS: FLUCONAZOLE 200MG/100ML 100 ML IV SCH (10:23)
[2020-05-12] MEDS: DexAMETHasone SOD PHOS 10MG/1ML VIAL INJ IV SCH (10:23)
[2020-05-12] MEDS: FAMOTIDINE (10MG/ML) 2ML VL IV SCH ×2 (10:23→22:15)
[2020-05-12] MEDS: SODIUM CHLOR 0.9% PF (SALINE LOCK) 10ML VIAL/SYR IV SCH ×2 (10:24→22:15)
[2020-05-12] MEDS: ZINC SULFATE 220mg CAP or TAB PO SCH (10:24)
[2020-05-12] MEDS: ASCORBIC ACID 1,000 MG TAB PO SCH (10:24)
[2020-05-12] MEDS: CHOLECALCIFEROL (VITD3) 2,000 UNIT CAP/TAB PO SCH (10:24)
[2020-05-12] MEDS: ROCURONIUM BROMIDE 1,000 MG in D5W 5% 150 ML IV SCH (10:24)
[2020-05-12] MEDS: NITROGLYCERIN 50MG/250ML 250 ML IV SCH (12:30)
[2020-05-13] VITALS (98 sets, daily range): BP systolic 88–129; BP diastolic 52–74
[2020-05-13] MEDS: PROPOFOL 100 ML IV SCH ×4 (00:09→15:01)
[2020-05-13] MEDS: MIDAZOLAM DRIP 50 mg/50mL 50 ML IV SCH ×4 (02:00→23:30)
[2020-05-13] MEDS: InsuLIN REG 1unit/0.01ml Soln (100units/ml) SC SCH ×3 (05:34→12:00)
[2020-05-13] MEDS: ACCU-CHEK COMFORT CURVE STRIP VI SCH ×2 (05:34→11:45)
[2020-05-13] MEDS: NOREPINEPHRINE 8 MG/250ML KIT 250 ML IV SCH (05:35)
[2020-05-13] MEDS: Jevity 1.2 Cal/Fiber 1 Liter GT SCH (05:35)
[2020-05-13] MEDS: BUDESONIDE (INHALATION) 0.5 MG/2 ML NEB NEB SCH (05:47)
[2020-05-13] MEDS: ALBUTEROL SULF 2.5 MG/0.5ML(0.5%) NEB SOLN NEB PRN (05:47)
[2020-05-13] MEDS: DexAMETHasone SOD PHOS 10MG/1ML VIAL INJ IV SCH (09:52)
[2020-05-13] MEDS: SODIUM CHLOR 0.9% PF (SALINE LOCK) 10ML VIAL/SYR IV SCH (09:53)
[2020-05-13] MEDS: FLUCONAZOLE 200MG/100ML 100 ML IV SCH (09:53)
[2020-05-13] MEDS: ZINC SULFATE 220mg CAP or TAB PO SCH (09:53)
[2020-05-13] MEDS: ROCURONIUM BROMIDE 1,000 MG in D5W 5% 150 ML IV SCH ×2 (09:53→15:15)
[2020-05-13] MEDS: ASCORBIC ACID 1,000 MG TAB PO SCH (09:53)
[2020-05-13] MEDS: FAMOTIDINE (10MG/ML) 2ML VL IV SCH (09:53)
[2020-05-13] MEDS: CHOLECALCIFEROL (VITD3) 2,000 UNIT CAP/TAB PO SCH (09:53)
[2020-05-13] MEDS: fentaNYL Drip 2500mCg/250mlNS 250 ML IV SCH (09:58)
[2020-05-13] MEDS: FUROSEMIDE 40 MG/4 ML VIAL IV SCH (10:00)
[2020-05-13] MEDS: NITROGLYCERIN 50MG/250ML 250 ML IV SCH (12:30)
[2020-05-13] MEDS ORDERED: PROPOFOL 100 ML IV ONE (14:48)
[2020-05-14] VITALS (101 sets, daily range): BP systolic 82–133; BP diastolic 53–83
[2020-05-14] MEDS: PROPOFOL 100 ML IV SCH ×4 (06:01→21:00)
[2020-05-14] MEDS: FLUCONAZOLE 200MG/100ML 100 ML IV SCH (08:21)
[2020-05-14] MEDS: DexAMETHasone SOD PHOS 10MG/1ML VIAL INJ IV SCH (08:25)
[2020-05-14] MEDS: FUROSEMIDE 40 MG/4 ML VIAL IV SCH (08:25)
[2020-05-14] MEDS: fentaNYL Drip 2500mCg/250mlNS 250 ML IV SCH (09:20)
[2020-05-14] MEDS: InsuLIN REG 1unit/0.01ml Soln (100units/ml) SC SCH ×2 (10:30→18:13)
[2020-05-14] MEDS ORDERED: DEXTROSE (50%) 50ML SYRG IV SCH (10:30)
[2020-05-14] MEDS: ACETAMINOPHEN 650 mg PER 20.3 mL UD GT PRN ×2 (10:40→11:11)
[2020-05-14] MEDS: ACCU-CHEK COMFORT CURVE STRIP VI SCH ×2 (11:07→18:14)
[2020-05-14] MEDS: MIDAZOLAM DRIP 50 mg/50mL 50 ML IV SCH ×2 (11:10→23:00)
[2020-05-14] MEDS: NITROGLYCERIN 50MG/250ML 250 ML IV SCH (12:30)
[2020-05-14] MEDS ORDERED: PIPERACILLIN-TAZOB 3.375GM 100 ML IV ONE (14:30)
[2020-05-14] MEDS: ROCURONIUM BROMIDE 1,000 MG in D5W 5% 150 ML IV SCH (15:15)
[2020-05-14] MEDS: PIPERACILLIN-TAZOB 3.375GM 100 ML IV SCH (22:00)
[2020-05-15] VITALS (102 sets, daily range): BP systolic 102–146; BP diastolic 64–99
[2020-05-15] MEDS: InsuLIN REG 1unit/0.01ml Soln (100units/ml) SC SCH ×4 (00:29→17:16)
[2020-05-15 04:13] LABS: Basophils # (auto) 0.1 10 ^3/uL (0-0.2); Basophils % (auto) 0.4 % (0.0-2.0); Eosinophils # (auto) 0.1 10 ^3/uL (0-0.8); Eosinophils % (auto) 0.5 % (0.0-7.0); Hematocrit 29.7 % (41.0-53.0); Hemoglobin 9.9 g/dL (13.5-17.5); Lymphocytes # (auto) 0.5 10 ^3/uL (0.4-5.4); Mean Corpuscular Hemoglobin 31.4 pg (28.0-32.0); Mean Corpuscular Hgb Conc. 33.4 g/dL (32.0-36.0); Monocytes # (auto) 0.8 10 ^3/uL (0-1.3); Neutrophils # (auto) 11.5 10 ^3/uL (1.6-8.6); Neutrophils % (auto) 89.1 % (37.0-80.0); Platelet Count (auto) 225 10^3/uL (140-450); Red Blood Cells 3.16 10^6/uL (4.5-5.90); Red Cell Distribution Width 15.7 % (11.8-14.3); White Blood Cell 12.9 10^3/uL (4.4-10.8)
[2020-05-15 04:30] LABS: Albumin 1.9 g/dL (3.4-5.0); Calcium 7.9 mg/dL (8.5-10.1); Potassium 4.5 mmol/L (3.5-5.1)
[2020-05-15 04:34] LABS: BUN/Creatinine Ratio 82.4; Bilirubin, Total 0.5 mg/dL (0.2-1.0); Total Protein 5.7 g/dL (6.4-8.2)
[2020-05-15] MEDS: PIPERACILLIN-TAZOB 3.375GM 100 ML IV SCH ×3 (05:39→22:50)
[2020-05-15] MEDS: ACCU-CHEK COMFORT CURVE STRIP VI SCH ×4 (05:39→17:17)
[2020-05-15] MEDS: MIDAZOLAM DRIP 50 mg/50mL 50 ML IV SCH ×2 (07:00→14:33)
[2020-05-15] MEDS: PROPOFOL 100 ML IV SCH ×3 (07:40→19:00)
[2020-05-15] MEDS: FLUCONAZOLE 200MG/100ML 100 ML IV SCH (09:03)
[2020-05-15] MEDS: DexAMETHasone SOD PHOS 10MG/1ML VIAL INJ IV SCH (09:03)
[2020-05-15] MEDS: fentaNYL Drip 2500mCg/250mlNS 250 ML IV SCH ×2 (09:15→21:13)
[2020-05-15] MEDS: ROCURONIUM BROMIDE 1,000 MG in D5W 5% 150 ML IV SCH (15:15)
[2020-05-16] VITALS (94 sets, daily range): BP systolic 84–142; BP diastolic 48–85
[2020-05-16] MEDS: ACCU-CHEK COMFORT CURVE STRIP VI SCH ×4 (00:16→18:00)
[2020-05-16] MEDS: InsuLIN REG 1unit/0.01ml Soln (100units/ml) SC SCH ×4 (00:17→18:00)
[2020-05-16] MEDS: MIDAZOLAM DRIP 50 mg/50mL 50 ML IV SCH ×3 (02:08→21:30)
[2020-05-16] MEDS: PROPOFOL 100 ML IV SCH ×3 (02:54→21:00)
[2020-05-16] MEDS: PIPERACILLIN-TAZOB 3.375GM 100 ML IV SCH ×3 (05:39→21:32)
[2020-05-16] MEDS: DexAMETHasone SOD PHOS 10MG/1ML VIAL INJ IV SCH (10:43)
[2020-05-16] MEDS: FLUCONAZOLE 200MG/100ML 100 ML IV SCH (10:43)
[2020-05-16] MEDS: ROCURONIUM BROMIDE 1,000 MG in D5W 5% 150 ML IV SCH (15:15)
[2020-05-16] MEDS: NOREPINEPHRINE 8 MG/250ML KIT 250 ML IV SCH (23:15)
[2020-05-17] VITALS (106 sets, daily range): BP systolic 81–148; BP diastolic 51–88
[2020-05-17] MEDS: MIDAZOLAM DRIP 50 mg/50mL 50 ML IV SCH ×4 (01:00→18:38)
[2020-05-17] MEDS: PIPERACILLIN-TAZOB 3.375GM 100 ML IV SCH ×3 (06:00→22:10)
[2020-05-17] MEDS: ACCU-CHEK COMFORT CURVE STRIP VI SCH ×4 (06:00→17:59)
[2020-05-17] MEDS: InsuLIN REG 1unit/0.01ml Soln (100units/ml) SC SCH ×4 (06:00→17:59)
[2020-05-17] MEDS: PROPOFOL 100 ML IV SCH ×2 (07:23→18:24)
[2020-05-17] MEDS: FLUCONAZOLE 200MG/100ML 100 ML IV SCH (09:56)
[2020-05-17] MEDS: DexAMETHasone SOD PHOS 10MG/1ML VIAL INJ IV SCH (09:56)
[2020-05-17] MEDS: ROCURONIUM BROMIDE 1,000 MG in D5W 5% 150 ML IV SCH (11:09)
[2020-05-17] MEDS: fentaNYL Drip 2500mCg/250mlNS 250 ML IV SCH ×2 (11:10→22:00)
[2020-05-17] MEDS: NOREPINEPHRINE 8 MG/250ML KIT 250 ML IV SCH (22:10)
[2020-05-18] VITALS (81 sets, daily range): BP systolic 85–140; BP diastolic 57–92
[2020-05-18] MEDS: PROPOFOL 100 ML IV SCH ×3 (04:41→18:15)
[2020-05-18] MEDS: MIDAZOLAM DRIP 50 mg/50mL 50 ML IV SCH ×5 (04:43→21:59)
[2020-05-18] MEDS: PIPERACILLIN-TAZOB 3.375GM 100 ML IV SCH ×3 (05:34→21:59)
[2020-05-18] MEDS: ACCU-CHEK COMFORT CURVE STRIP VI SCH ×4 (06:00→17:00)
[2020-05-18] MEDS: InsuLIN REG 1unit/0.01ml Soln (100units/ml) SC SCH ×4 (06:10→17:00)
[2020-05-18 08:38] LABS: Basophils # (auto) 0.1 10 ^3/uL (0-0.2); Basophils % (auto) 0.4 % (0.0-2.0); Eosinophils # (auto) 0.5 10 ^3/uL (0-0.8); Hematocrit 29.5 % (41.0-53.0); Hemoglobin 9.9 g/dL (13.5-17.5); Lymphocytes # (auto) 0.7 10 ^3/uL (0.4-5.4); Lymphocytes % (auto) 5.2 % (10.0-50.0); Mean Corpuscular Hemoglobin 31.7 pg (28.0-32.0); Mean Corpuscular Hgb Conc. 33.7 g/dL (32.0-36.0); Mean Corpuscular Volume 94.1 fL (80.0-100.0); Monocytes % (auto) 7.6 % (0.0-12.0); Neutrophils # (auto) 10.9 10 ^3/uL (1.6-8.6); Neutrophils % (auto) 82.8 % (37.0-80.0); Nucleated Red Blood Cells % 0.1 %; Platelet Count (auto) 237 10^3/uL (140-450); Red Blood Cells 3.14 10^6/uL (4.5-5.90); Red Cell Distribution Width 15.8 % (11.8-14.3); White Blood Cell 13.2 10^3/uL (4.4-10.8)
[2020-05-18 09:06] LABS: BUN/Creatinine Ratio 77.8; Magnesium 2.3 mg/dL (1.6-2.6); Phosphorus 2.5 mg/dL (2.5-4.90); Potassium 4.2 mmol/L (3.5-5.1)
[2020-05-18] MEDS: FLUCONAZOLE 200MG/100ML 100 ML IV SCH (09:50)
[2020-05-18] MEDS: DexAMETHasone SOD PHOS 10MG/1ML VIAL INJ IV SCH (09:50)
[2020-05-18] MEDS: fentaNYL Drip 2500mCg/250mlNS 250 ML IV SCH (12:34)
[2020-05-18] MEDS: Jevity 1.2 Cal/Fiber 1 Liter GT SCH (18:39)
[2020-05-19] VITALS (74 sets, daily range): BP systolic 90–137; BP diastolic 58–89
[2020-05-19] MEDS: MIDAZOLAM DRIP 50 mg/50mL 50 ML IV SCH ×4 (03:10→20:00)
[2020-05-19] MEDS: fentaNYL Drip 2500mCg/250mlNS 250 ML IV SCH ×2 (03:11→16:37)
[2020-05-19] MEDS: DexAMETHasone SOD PHOS 10MG/1ML VIAL INJ IV SCH (09:58)
[2020-05-19] MEDS: FLUCONAZOLE 200MG/100ML 100 ML IV SCH (09:58)
[2020-05-19] MEDS: ACCU-CHEK COMFORT CURVE STRIP VI SCH ×4 (10:00→17:00)
[2020-05-19] MEDS: InsuLIN REG 1unit/0.01ml Soln (100units/ml) SC SCH ×4 (10:00→17:00)
[2020-05-19 10:16] LABS: Basophils # (auto) 0.1 10 ^3/uL (0-0.2); Basophils % (auto) 0.4 % (0.0-2.0); Eosinophils # (auto) 0.2 10 ^3/uL (0-0.8); Eosinophils % (auto) 1.4 % (0.0-7.0); Hematocrit 30.7 % (41.0-53.0); Hemoglobin 10.3 g/dL (13.5-17.5); Lymphocytes # (auto) 0.7 10 ^3/uL (0.4-5.4); Lymphocytes % (auto) 4.6 % (10.0-50.0); Mean Corpuscular Hemoglobin 31.5 pg (28.0-32.0); Mean Corpuscular Hgb Conc. 33.5 g/dL (32.0-36.0); Monocytes # (auto) 1.4 10 ^3/uL (0-1.3); Monocytes % (auto) 9.2 % (0.0-12.0); Neutrophils # (auto) 12.7 10 ^3/uL (1.6-8.6); Neutrophils % (auto) 84.4 % (37.0-80.0); Platelet Count (auto) 276 10^3/uL (140-450); Red Blood Cells 3.26 10^6/uL (4.5-5.90); Red Cell Distribution Width 16.5 % (11.8-14.3)
[2020-05-19 10:54] LABS: Potassium 4.3 mmol/L (3.5-5.1)
[2020-05-19 11:02] LABS: BUN/Creatinine Ratio 94.1; Calcium 8.1 mg/dL (8.5-10.1); Magnesium 2.2 mg/dL (1.6-2.6); Phosphorus 2.7 mg/dL (2.5-4.90)
[2020-05-19] MEDS: PROPOFOL 100 ML IV SCH ×2 (11:51→20:00)
[2020-05-19] MEDS: PIPERACILLIN-TAZOB 3.375GM 100 ML IV SCH ×3 (13:00→22:00)
[2020-05-20] VITALS (72 sets, daily range): BP systolic 91–131; BP diastolic 56–83
[2020-05-20] MEDS: ACCU-CHEK COMFORT CURVE STRIP VI SCH ×5 (00:25→23:28)
[2020-05-20] MEDS: InsuLIN REG 1unit/0.01ml Soln (100units/ml) SC SCH ×5 (05:14→23:28)
[2020-05-20] MEDS: PIPERACILLIN-TAZOB 3.375GM 100 ML IV SCH ×3 (05:15→21:04)
[2020-05-20] MEDS: MIDAZOLAM DRIP 50 mg/50mL 50 ML IV SCH ×2 (07:57→14:09)
[2020-05-20 08:27] LABS: Basophils # (auto) 0 10 ^3/uL (0-0.2); Basophils % (auto) 0.2 % (0.0-2.0); Eosinophils # (auto) 0.1 10 ^3/uL (0-0.8); Eosinophils % (auto) 0.6 % (0.0-7.0); Hematocrit 28.5 % (41.0-53.0); Hemoglobin 9.7 g/dL (13.5-17.5); Lymphocytes # (auto) 0.5 10 ^3/uL (0.4-5.4); Lymphocytes % (auto) 3.6 % (10.0-50.0); Mean Corpuscular Hemoglobin 32.1 pg (28.0-32.0); Mean Corpuscular Hgb Conc. 34.2 g/dL (32.0-36.0); Mean Corpuscular Volume 93.9 fL (80.0-100.0); Monocytes # (auto) 1.3 10 ^3/uL (0-1.3); Monocytes % (auto) 9.1 % (0.0-12.0); Neutrophils # (auto) 12.2 10 ^3/uL (1.6-8.6); Neutrophils % (auto) 86.5 % (37.0-80.0); Platelet Count (auto) 271 10^3/uL (140-450); Red Blood Cells 3.03 10^6/uL (4.5-5.90); Red Cell Distribution Width 16.3 % (11.8-14.3); White Blood Cell 14.1 10^3/uL (4.4-10.8)
[2020-05-20 08:44] LABS: Anion Gap 1 (5-15); Calcium 8.4 mg/dL (8.5-10.1); Chloride 96 mmol/L (98-107); Glucose 82 mg/dL (74-106); Magnesium 2.2 mg/dL (1.6-2.6); Sodium 138 mmol/L (136-145)
[2020-05-20 08:45] LABS: GFR African American 864 mL/min; GFR Non-African American 714 mL/min; Phosphorus 3.1 mg/dL (2.5-4.90)
[2020-05-20 08:55] LABS: Carbon Dioxide 41 mmol/L (21-32)
[2020-05-20] MEDS: FLUCONAZOLE 200MG/100ML 100 ML IV SCH (09:26)
[2020-05-20] MEDS: DexAMETHasone SOD PHOS 10MG/1ML VIAL INJ IV SCH (09:26)
[2020-05-20] MEDS: fentaNYL Drip 2500mCg/250mlNS 250 ML IV SCH (10:30)
[2020-05-20 10:44] LABS: BUN/Creatinine Ratio 113.3; Blood Urea Nitrogen 17 mg/dL (7-18)
[2020-05-20] MEDS: PROPOFOL 100 ML IV SCH (14:08)
[2020-05-21] VITALS (81 sets, daily range): BP systolic 94–137; BP diastolic 60–88
[2020-05-21] MEDS: PIPERACILLIN-TAZOB 3.375GM 100 ML IV SCH ×3 (05:26→21:19)
[2020-05-21] MEDS: InsuLIN REG 1unit/0.01ml Soln (100units/ml) SC SCH ×4 (05:45→23:17)
[2020-05-21] MEDS: ACCU-CHEK COMFORT CURVE STRIP VI SCH ×4 (05:45→23:18)
[2020-05-21] MEDS: FLUCONAZOLE 200MG/100ML 100 ML IV SCH (09:00)
[2020-05-21] MEDS: DexAMETHasone SOD PHOS 10MG/1ML VIAL INJ IV SCH (09:00)
[2020-05-21 09:02] LABS: Basophils # (auto) 0 10 ^3/uL (0-0.2); Basophils % (auto) 0.3 % (0.0-2.0); Eosinophils # (auto) 0.1 10 ^3/uL (0-0.8); Eosinophils % (auto) 0.7 % (0.0-7.0); Hemoglobin 10.8 g/dL (13.5-17.5); Lymphocytes # (auto) 0.6 10 ^3/uL (0.4-5.4); Lymphocytes % (auto) 3.8 % (10.0-50.0); Mean Corpuscular Hemoglobin 31.7 pg (28.0-32.0); Mean Corpuscular Hgb Conc. 33.7 g/dL (32.0-36.0); Mean Corpuscular Volume 94.2 fL (80.0-100.0); Monocytes # (auto) 1.5 10 ^3/uL (0-1.3); Monocytes % (auto) 9.6 % (0.0-12.0); Neutrophils # (auto) 13.6 10 ^3/uL (1.6-8.6); Neutrophils % (auto) 85.6 % (37.0-80.0); Platelet Count (auto) 292 10^3/uL (140-450); White Blood Cell 15.9 10^3/uL (4.4-10.8)
[2020-05-21 09:24] LABS: BUN/Creatinine Ratio 62.5; Calcium 8.6 mg/dL (8.5-10.1); Magnesium 2.1 mg/dL (1.6-2.6); Phosphorus 2.8 mg/dL (2.5-4.90); Potassium 4.4 mmol/L (3.5-5.1)
[2020-05-21] MEDS: PROPOFOL 100 ML IV SCH (10:10)
[2020-05-21] MEDS: MIDAZOLAM DRIP 50 mg/50mL 50 ML IV SCH ×2 (12:30→18:40)
[2020-05-21] MEDS: fentaNYL Drip 2500mCg/250mlNS 250 ML IV SCH (19:46)
[2020-05-22] VITALS (81 sets, daily range): BP systolic 88–148; BP diastolic 59–89
[2020-05-22 04:48] LABS: Basophils # (auto) 0 10 ^3/uL (0-0.2); Basophils % (auto) 0.1 % (0.0-2.0); Eosinophils # (auto) 0 10 ^3/uL (0-0.8); Eosinophils % (auto) 0.1 % (0.0-7.0); Hematocrit 27.9 % (41.0-53.0); Hemoglobin 9.6 g/dL (13.5-17.5); Lymphocytes # (auto) 0.4 10 ^3/uL (0.4-5.4); Lymphocytes % (auto) 3.5 % (10.0-50.0); Mean Corpuscular Hgb Conc. 34.4 g/dL (32.0-36.0); Neutrophils # (auto) 9.9 10 ^3/uL (1.6-8.6); Neutrophils % (auto) 87.3 % (37.0-80.0); Platelet Count (auto) 259 10^3/uL (140-450); Red Cell Distribution Width 15.8 % (11.8-14.3); White Blood Cell 11.3 10^3/uL (4.4-10.8)
[2020-05-22 05:06] LABS: Potassium 3.6 mmol/L (3.5-5.1)
[2020-05-22] MEDS: PIPERACILLIN-TAZOB 3.375GM 100 ML IV SCH ×3 (05:07→22:05)
[2020-05-22] MEDS: ACCU-CHEK COMFORT CURVE STRIP VI SCH ×4 (05:08→23:52)
[2020-05-22] MEDS: InsuLIN REG 1unit/0.01ml Soln (100units/ml) SC SCH ×4 (05:08→23:52)
[2020-05-22 05:16] LABS: Calcium 8.3 mg/dL (8.5-10.1); Phosphorus 2.4 mg/dL (2.5-4.90)
[2020-05-22 05:45] LABS: BUN/Creatinine Ratio 93.3
[2020-05-22] MEDS: MIDAZOLAM DRIP 50 mg/50mL 50 ML IV SCH ×2 (09:08→15:30)
[2020-05-22] MEDS: DexAMETHasone SOD PHOS 10MG/1ML VIAL INJ IV SCH (09:14)
[2020-05-22] MEDS: FLUCONAZOLE 200MG/100ML 100 ML IV SCH (09:14)
[2020-05-22] MEDS: PROPOFOL 100 ML IV SCH (16:20)
[2020-05-22] MEDS: fentaNYL Drip 2500mCg/250mlNS 250 ML IV SCH (18:42)
[2020-05-23] VITALS (104 sets, daily range): BP systolic 89–135; BP diastolic 61–85
[2020-05-23 04:53] LABS: Calcium 7.9 mg/dL (8.5-10.1); Magnesium 1.8 mg/dL (1.6-2.6); Potassium 3.3 mmol/L (3.5-5.1)
[2020-05-23 04:55] LABS: BUN/Creatinine Ratio 57.1; Phosphorus 2.6 mg/dL (2.5-4.90)
[2020-05-23 05:10] LABS: Basophils # (auto) 0 10 ^3/uL (0-0.2); Basophils % (auto) 0.1 % (0.0-2.0); Eosinophils # (auto) 0 10 ^3/uL (0-0.8); Eosinophils % (auto) 0.3 % (0.0-7.0); Hematocrit 28.8 % (41.0-53.0); Hemoglobin 9.8 g/dL (13.5-17.5); Lymphocytes # (auto) 0.5 10 ^3/uL (0.4-5.4); Mean Corpuscular Hemoglobin 31.8 pg (28.0-32.0); Mean Corpuscular Volume 93.6 fL (80.0-100.0); Monocytes # (auto) 1.4 10 ^3/uL (0-1.3); Monocytes % (auto) 11.1 % (0.0-12.0); Neutrophils # (auto) 10.7 10 ^3/uL (1.6-8.6); Neutrophils % (auto) 84.5 % (37.0-80.0); Nucleated Red Blood Cells % 0.1 %; Platelet Count (auto) 277 10^3/uL (140-450); Red Blood Cells 3.08 10^6/uL (4.5-5.90); Red Cell Distribution Width 16.2 % (11.8-14.3); White Blood Cell 12.6 10^3/uL (4.4-10.8)
[2020-05-23] MEDS: InsuLIN REG 1unit/0.01ml Soln (100units/ml) SC SCH ×3 (06:00→18:00)
[2020-05-23] MEDS: PIPERACILLIN-TAZOB 3.375GM 100 ML IV SCH ×3 (06:11→21:27)
[2020-05-23] MEDS: ACCU-CHEK COMFORT CURVE STRIP VI SCH ×3 (06:11→17:41)
[2020-05-23] MEDS: DexAMETHasone SOD PHOS 10MG/1ML VIAL INJ IV SCH (09:18)
[2020-05-23] MEDS: FLUCONAZOLE 200MG/100ML 100 ML IV SCH (09:18)
[2020-05-23] MEDS: PROPOFOL 100 ML IV SCH (10:12)
[2020-05-23] MEDS: fentaNYL Drip 2500mCg/250mlNS 250 ML IV SCH (10:13)
[2020-05-23] MEDS: MIDAZOLAM DRIP 50 mg/50mL 50 ML IV SCH (16:14)
[2020-05-24] VITALS (103 sets, daily range): BP systolic 84–129; BP diastolic 52–95
[2020-05-24 05:13] LABS: Basophils # (auto) 0.1 10 ^3/uL (0-0.2); Basophils % (auto) 0.4 % (0.0-2.0); Eosinophils # (auto) 0.5 10 ^3/uL (0-0.8); Eosinophils % (auto) 2.9 % (0.0-7.0); Hematocrit 32.7 % (41.0-53.0); Hemoglobin 10.8 g/dL (13.5-17.5); Lymphocytes # (auto) 0.7 10 ^3/uL (0.4-5.4); Lymphocytes % (auto) 4.8 % (10.0-50.0); Mean Corpuscular Volume 93.9 fL (80.0-100.0); Monocytes # (auto) 1.4 10 ^3/uL (0-1.3); Monocytes % (auto) 8.8 % (0.0-12.0); Neutrophils # (auto) 12.8 10 ^3/uL (1.6-8.6); Neutrophils % (auto) 83.1 % (37.0-80.0); Platelet Count (auto) 301 10^3/uL (140-450); Red Blood Cells 3.48 10^6/uL (4.5-5.90); Red Cell Distribution Width 16.2 % (11.8-14.3); White Blood Cell 15.4 10^3/uL (4.4-10.8)
[2020-05-24] MEDS: PIPERACILLIN-TAZOB 3.375GM 100 ML IV SCH ×3 (05:14→21:32)
[2020-05-24] MEDS: InsuLIN REG 1unit/0.01ml Soln (100units/ml) SC SCH ×5 (05:54→23:32)
[2020-05-24] MEDS: ACCU-CHEK COMFORT CURVE STRIP VI SCH ×5 (05:54→23:31)
[2020-05-24 06:46] LABS: Calcium 8.8 mg/dL (8.5-10.1); Magnesium 1.8 mg/dL (1.6-2.6); Potassium 3.4 mmol/L (3.5-5.1)
[2020-05-24 06:49] LABS: Phosphorus 2.5 mg/dL (2.5-4.90)
[2020-05-24] MEDS: DexAMETHasone SOD PHOS 10MG/1ML VIAL INJ IV SCH (09:39)
[2020-05-24] MEDS: FLUCONAZOLE 200MG/100ML 100 ML IV SCH (09:39)
[2020-05-24] MEDS: PROPOFOL 100 ML IV SCH (14:31)
[2020-05-24] MEDS: fentaNYL Drip 2500mCg/250mlNS 250 ML IV SCH (16:31)
[2020-05-24] MEDS: MIDAZOLAM DRIP 50 mg/50mL 50 ML IV SCH ×2 (16:34→23:42)
[2020-05-25] VITALS (105 sets, daily range): BP systolic 87–141; BP diastolic 54–93
[2020-05-25] MEDS: PROPOFOL 100 ML IV SCH ×2 (02:41→22:12)
[2020-05-25] MEDS: PIPERACILLIN-TAZOB 3.375GM 100 ML IV SCH ×3 (05:30→21:43)
[2020-05-25] MEDS: ACCU-CHEK COMFORT CURVE STRIP VI SCH ×4 (06:00→23:38)
[2020-05-25] MEDS: InsuLIN REG 1unit/0.01ml Soln (100units/ml) SC SCH ×4 (06:00→23:38)
[2020-05-25] MEDS: MIDAZOLAM DRIP 50 mg/50mL 50 ML IV SCH ×3 (06:15→22:12)
[2020-05-25] MEDS: DexAMETHasone SOD PHOS 10MG/1ML VIAL INJ IV SCH (10:00)
[2020-05-25] MEDS: FLUCONAZOLE 200MG/100ML 100 ML IV SCH (10:00)
[2020-05-25] MEDS: fentaNYL Drip 2500mCg/250mlNS 250 ML IV SCH (12:15)
[2020-05-26] VITALS (102 sets, daily range): BP systolic 100–137; BP diastolic 61–94
[2020-05-26] MEDS: fentaNYL Drip 2500mCg/250mlNS 250 ML IV SCH ×2 (04:50→22:00)
[2020-05-26] MEDS: PIPERACILLIN-TAZOB 3.375GM 100 ML IV SCH ×2 (05:46→14:24)
[2020-05-26] MEDS: InsuLIN REG 1unit/0.01ml Soln (100units/ml) SC SCH ×3 (05:46→18:00)
[2020-05-26] MEDS: ACCU-CHEK COMFORT CURVE STRIP VI SCH ×3 (05:46→18:09)
[2020-05-26] MEDS: FLUCONAZOLE 200MG/100ML 100 ML IV SCH (09:52)
[2020-05-26] MEDS: DexAMETHasone SOD PHOS 10MG/1ML VIAL INJ IV SCH (09:52)
[2020-05-26] MEDS: PROPOFOL 100 ML IV SCH (09:53)
[2020-05-26] MEDS: MIDAZOLAM DRIP 50 mg/50mL 50 ML IV SCH ×2 (09:54→21:00)
[2020-05-26 23:42] LABS: Magnesium 1.8 mg/dL (1.6-2.6)
[2020-05-27] VITALS (102 sets, daily range): BP systolic 94–138; BP diastolic 55–88
[2020-05-27] MEDS: ACCU-CHEK COMFORT CURVE STRIP VI SCH ×4 (00:03→18:06)
[2020-05-27] MEDS: PROPOFOL 100 ML IV SCH ×5 (01:47→22:00)
[2020-05-27] MEDS: ACETAMINOPHEN 650 mg PER 20.3 mL UD GT PRN (02:20)
[2020-05-27] MEDS: InsuLIN REG 1unit/0.01ml Soln (100units/ml) SC SCH ×4 (06:00→18:51)
[2020-05-27] MEDS: DexAMETHasone SOD PHOS 4 MG/1ML SDV INJ IV SCH (09:11)
[2020-05-27] MEDS: MIDAZOLAM DRIP 50 mg/50mL 50 ML IV SCH ×3 (09:25→22:00)
[2020-05-27] MEDS: fentaNYL Drip 2500mCg/250mlNS 250 ML IV SCH (14:50)
[2020-05-27] MEDS: Jevity 1.2 Cal/Fiber 1 Liter GT SCH (22:00)
[2020-05-28] VITALS (81 sets, daily range): BP systolic 87–136; BP diastolic 57–85
[2020-05-28] MEDS: fentaNYL Drip 2500mCg/250mlNS 250 ML IV SCH ×2 (04:00→16:57)
[2020-05-28] MEDS: MIDAZOLAM DRIP 50 mg/50mL 50 ML IV SCH ×4 (04:00→23:35)
[2020-05-28] MEDS: PROPOFOL 100 ML IV SCH ×4 (04:00→23:00)
[2020-05-28] MEDS: InsuLIN REG 1unit/0.01ml Soln (100units/ml) SC SCH ×4 (06:00→17:51)
[2020-05-28] MEDS: ACCU-CHEK COMFORT CURVE STRIP VI SCH ×4 (06:16→17:45)
[2020-05-28] MEDS: DexAMETHasone SOD PHOS 4 MG/1ML SDV INJ IV SCH (10:34)
[2020-05-28] MEDS: Jevity 1.2 Cal/Fiber 1 Liter GT SCH (20:00)
[2020-05-29] VITALS (104 sets, daily range): BP systolic 96–141; BP diastolic 61–95
[2020-05-29] MEDS: PROPOFOL 100 ML IV SCH ×4 (05:03→23:00)
[2020-05-29] MEDS: InsuLIN REG 1unit/0.01ml Soln (100units/ml) SC SCH ×4 (05:35→18:00)
[2020-05-29] MEDS: ACCU-CHEK COMFORT CURVE STRIP VI SCH ×4 (05:38→18:00)
[2020-05-29] MEDS: fentaNYL Drip 2500mCg/250mlNS 250 ML IV SCH (09:17)
[2020-05-29] MEDS: MIDAZOLAM DRIP 50 mg/50mL 50 ML IV SCH ×2 (09:41→23:10)
[2020-05-29] MEDS ORDERED: MIDAZOLAM DRIP 50 mg/50mL 50 ML IV ONE (14:56)
[2020-05-29] MEDS: DexAMETHasone SOD PHOS 4 MG/1ML SDV INJ IV SCH (18:26)
[2020-05-30] VITALS (64 sets, daily range): BP systolic 62–162; BP diastolic 32–100
[2020-05-30] MEDS: fentaNYL Drip 2500mCg/250mlNS 250 ML IV SCH (01:27)
[2020-05-30] MEDS: PROPOFOL 100 ML IV SCH ×2 (03:00→08:23)
[2020-05-30] MEDS: MIDAZOLAM DRIP 50 mg/50mL 50 ML IV SCH (03:00)
[2020-05-30] MEDS: InsuLIN REG 1unit/0.01ml Soln (100units/ml) SC SCH ×3 (06:00→12:00)
[2020-05-30] MEDS: ACCU-CHEK COMFORT CURVE STRIP VI SCH ×3 (06:00→12:18)
[2020-05-30] MEDS: DexAMETHasone SOD PHOS 4 MG/1ML SDV INJ IV SCH (11:53)
== END 2020-05-30 20:00 | DRG 207 ==
LOC: ER 12:16 → EDBD 12:16 → TELE 12:17 → TELE-CENTR 03-14 19:45 → TELE-WESTW 03-14 20:07 → TELE-CENTR 03-14 20:42 → TELE-WESTW 03-17 17:30 → ICU WEST 03-31 05:15
PROVIDERS: ADMIT Internal Medicine; ATTEND Internal Medicine Cardiovascular Disease
PROC: XW13325 Transfusion of Convalescent Plasma (Nonautologous) into Peripheral Vein, Percutaneous Approach, New Technology Group 5 (ICD-10-PCS; principal; 2020-03-14)
PROC: XW033E5 Introduction of Remdesivir Anti-infective into Peripheral Vein, Percutaneous Approach, New Technology Group 5 (ICD-10-PCS; 2020-03-14)
PROC: 02H633Z Insertion of Infusion Device into Right Atrium, Percutaneous Approach (ICD-10-PCS; 2020-03-26)
PROC: 5A1955Z Respiratory Ventilation, Greater than 96 Consecutive Hours (ICD-10-PCS; 2020-03-31)
PROC: 0BH17EZ Insertion of Endotracheal Airway into Trachea, Via Natural or Artificial Opening (ICD-10-PCS; 2020-03-31)
PROC: 05HA33Z Insertion of Infusion Device into Left Brachial Vein, Percutaneous Approach (ICD-10-PCS; 2020-04-13)
PROC: B54NZZA Ultrasonography of Left Upper Extremity Veins, Guidance (ICD-10-PCS; 2020-04-13)
PROC: 0B9B8ZZ Drainage of Left Lower Lobe Bronchus, Via Natural or Artificial Opening Endoscopic (ICD-10-PCS; 2020-05-05)
PROC: 0B978ZZ Drainage of Left Main Bronchus, Via Natural or Artificial Opening Endoscopic (ICD-10-PCS; 2020-05-05)
PROC: 5A09557 Assistance with Respiratory Ventilation, Greater than 96 Consecutive Hours, Continuous Positive Airway Pressure (ICD-10-PCS; 2020-05-16)
PROC: 0BP1XDZ Removal of Intraluminal Device from Trachea, External Approach (ICD-10-PCS; 2020-05-30)
DX: U07.1 COVID-19 (principal); J96.01 Acute respiratory failure with hypoxia; J12.82 Pneumonia due to coronavirus disease 2019; J96.02 Acute respiratory failure with hypercapnia; J98.11 Atelectasis; J93.83 Other pneumothorax; Z99.11 Dependence on respirator [ventilator] status; E46 Unspecified protein-calorie malnutrition; E87.4 Mixed disorder of acid-base balance; E87.3 Alkalosis; E87.2 Acidosis; R64 Cachexia; Z66 Do not resuscitate; F41.9 Anxiety disorder, unspecified; J84.10 Pulmonary fibrosis, unspecified; I10 Essential (primary) hypertension; Z68.22 Body mass index [BMI] 22.0-22.9, adult; Z79.899 Other long term (current) drug therapy
CPT/HCPCS: 36415; 36569; 36600; 71045; 80048; 80053; 80202; 81001; 82040; 82306; 82728; 82805; 82962; 83036; 83615; 83735; 83880; 84100; 84132; 84443; 84478; 84484; 85007; 85025; 85027; 85379; 85610; 85730; 86141; 86850; 86900; 86901; 87040; 87070; 87081; 87086; 87205; 87426; 93306; 93970; 94002; 94003; 94640; 94660; 96365; 96367; 96375; 99291; G0378; J0330; J0696; J0885; J1100; J1450; J1815; J2185; J2250; J2543; J2704; J3480; J3490; J7060; J7131